=== PATIENT | male | born 1955 | race Caucasian/White ===

== ENCOUNTER 2018-09-12 16:31 | Inpatient (IN) ==
[2018-09-12] MEDS ORDERED: M.V.I.-12 10 ML, FOLIC ACID 1 MG, MAGNESIUM SULFATE 1 GM, THIAMINE 100 MG in NS 1,000 ML IV ONE (17:05)
[2018-09-12] MEDS ORDERED: MAGNESIUM SULFATE 2 GM/S.W.I. 2 GM/50 ML IVPB IV ONE (17:06)
[2018-09-12 17:26] LABS: BE 7.3 mmoll (-3.0-3.0); BLOOD TYPE ARTERIAL; HCO3-(ACT) 30.3 mmoll (20.0-26.0); METHB 1.2 % (0.0-1.5); O2(CT) 14.2 mL/dL (15.0-23.0); PCO2(98.6) 48 mmHg (35-45); PO2(98.6) 54 mmHg (60-100); SAMPLE BLOOD; SAO2 93.4 % (95.0-100.0); THB 11.8 g/dL (11.5-17.4); pH(98.6) 7.44 (7.35-7.45)
[2018-09-12 17:28] LABS: ALLEN TEST NO; MODALITY CANNULA
[2018-09-12 17:30] LABS: O2HB 85.3 % (95.0-99.0)
[2018-09-12 17:33] LABS: BASO# 0.03 X1000 (0.0-0.2); BASO% 0.2 % (0.0-0.8); EOS# 0.04 X1000 (0.0-0.7); EOS% 0.2 % (0.0-10.0); HEMATOCRIT 36.2 % (42.0-52.0); HEMOGLOBIN 12.6 g/dL (14.0-18.0); IMM GRAN# 0.16 X1000 (0.0-0.04); LYMPH# 0.66 X1000 (1.2-3.4); LYMPH% 4.1 % (20.5-51.1); MCH 28.6 PG (27-31); MCHC 34.8 g/dL (33-37); MCV 82.3 FL (81-99); MONO# 0.67 X1000 (0.11-0.59); MONO% 4.2 % (1.7-9.3); MPV 8.6 FL (7.4-10.4); NEUT% 90.3 % (42.2-75.2); PLT 328 X1000 (130-400); RDW 15.4 % (11.5-14.5); WBC 16.06 X1000 (4.8-10.8)
[2018-09-12 17:48] LABS: INR 0.93; PROTIME 12.9 Seconds (11.0-16.0)
[2018-09-12 17:56] LABS: ACETONE SERUM NEGATIVE (NEGATIVE)
[2018-09-12 18:05] LABS: ESTIMATED GFR > 60
[2018-09-12 18:07] LABS: AGAP 16; ALBUMIN 3.9 g/dL (3.5-5.0); ALKALINE PHOSPHATASE 120 U/L (32-122); BUN 6 mg/dL (8-22); CALCIUM 8.7 mg/dL (8.8-10.2); CHLORIDE 78 mmol/L (98-107); CK PROFILE 638 U/L (24-204); COSMO 243; CREATININE 0.8 mg/dL (0.7-1.2); GLUCOSE 81 mg/dL (70-104); GOT 53 U/L (10-34); GPT 21 U/L (10-44); LIPASE 28 U/L (13-60); MAGNESIUM 1.7 mg/dL (1.5-2.7); POTASSIUM 3.6 mmol/L (3.5-5.1); SODIUM 122 mmol/L (136-145); TCO2 28 mmol/L (25-35); TOTAL PROTEIN 7.3 g/dL (6.3-8.3)
[2018-09-12] MEDS ORDERED: NS 1,000 ML IV ONE (18:20)
[2018-09-12] MEDS ORDERED: ATIVAN IV ONE (18:21)
[2018-09-12 18:22] LABS: CK INDEX 2.3 (0.0-2.5)
--- NOTE | 2018-09-12 18:25 | Diag Imaging Result Doc PS360 ---
KNEE 3 VIEWS LEFT - 09/12/2018 INDICATION: seizure, patellar defect TECHNIQUE: Three views COMPARISON: None FINDINGS: There is a widely distracted transverse comminuted patella fracture. This is distracted by at least 5 cm. There is severe osteoarthritis of the medial joint compartment. The lateral joint compartment is preserved. There is severe vascular calculation of the superficial femoral artery and popliteal artery indicating peripheral arterial disease. IMPRESSION: Severely displaced, comminuted transverse patella fracture. Electronically signed by Jose Alberto Brown 09/12/2018 6:22 PM
--- NOTE | 2018-09-12 18:31 | Diag Imaging Result Doc PS360 ---
RIBS UNILAT W/PA CHEST LEFT - 09/12/2018 INDICATION: seizure, left posterior rib pain TECHNIQUE: Five views COMPARISON: 02/22/2016 FINDINGS: There is a rounded opacity in the left lung base. This measures 5 cm. There is COPD with pulmonary scarring. There is bilateral pleural blunting of the costophrenic angles indicating effusions or chronic scarring. There are numerous left-sided rib fractures. No obvious acute rib deformity. Heart size is top normal. IMPRESSION: 1. Left lung base pulmonary masslike opacity has been stable for many years, since at least 2014. On prior CT this appeared most suggestive of round atelectasis. 2. Numerous old left-sided rib deformities. No definite acute fracture. 3. Bilateral pleural effusions versus pleural scarring. Electronically signed by Jose Alberto Brown 09/12/2018 6:28 PM
--- NOTE | 2018-09-12 18:32 | PROVIDER DOCUMENTATION ---
This chart was entered by Aurora Darby Scribe, acting as scribe for Jose Elias De La Paz MD. HPI-Neurological Disorder - General Chief Complaint: Seizure Stated Complaint: SEIZURE Time Seen by Provider: 09/12/18 17:02 Source: patient Allergies/Adverse Reactions: Patient Allergies Allergy/AdvReac Type Severity Reaction Status Date / Time Penicillins Allergy Severe ANAPHYLAXIS Verified 06/08/18 15:46 Home Medications: Home Medication List Medication Instructions Recorded Confirmed Last Taken Type Albuterol Sulfate Inhaler 2 puff INH Q4H PRN PRN #1 inhaler 09/17/15 05/22/16 03/05/16 09:00 Rx [Ventolin Hfa] Amiodarone [Cordarone] 200 mg PO DAILY #30 tablet 09/17/15 05/22/16 05/22/16 07:00 Rx Diltiazem C.d. [Cardizem Cd] 120 mg PO DAILY #30 capsule 09/17/15 05/22/16 05/22/16 07:00 Rx Hydrocodone/APAP 5 mg/325 mg 2 ea PO Q6H PRN PRN #20 tab 01/29/18 Unknown Rx [[place]-5] Levofloxacin [Levaquin] 750 mg PO DAILY #14 tab 01/29/18 Unknown Rx Sulfamethoxazole/Trimethoprim 2 ea PO BID 56 Days #10 tab 01/29/18 Unknown Rx [Bactrim Ds Tablet] - History of Present Illness-Neuro Nature of Presenting Problem: Patient is a 63 year old male who presents to the ED via EMS after having a seizure. Patient reports history of seizures. States he is on Dilantin. Reports having a fall 3 days ago and fracturing his patella. Does not report headache. Severity: reports: mild Onset/Duration: reports: just prior to arrival Timing: reports: gone now Context: reports: seizure activity Character of Altered Mental Status: reports: seizure activity - Seizure First time to have a seizure?: No Witnessed seizure?: Yes Episode details: reports: unknown duration, unknown number Review of Systems - Adult - REVIEW OF SYSTEMS - ADULT Constitutional: reports: no symptoms reported. denies: chills, fever, fatique Eyes: reports: no symptoms reported Ears, Nose, Mouth & Throat: reports: no symptoms reported Cardiovascular: reports: no symptoms reported Respiratory: reports: no symptoms reported Gastrointestinal: reports: no symptoms reported. denies: diarrhea, nausea, vomiting Genitourinary: reports: no symptoms reported Musculoskeletal: reports: no symptoms reported Integumentary: reports: no symptoms reported Neurological: reports: see HPI, seizure. denies: dizziness/vertigo, headache/migraines, numbness, syncope Psychiatric: reports: no symptoms reported Endocrine: reports: no symptoms reported Hematologic/Lymphatic: reports: no symptoms reported Allergic/Immunologic: reports: no symptoms reported All Other Systems: Reviewed and Negative Past History - Adult - PAST MEDICAL HISTORY-ADULT Review of Records: reports: Nursing Assessment Review, Medications Reviewed, Social history reviewed & non-contributory. Major Childhood Illnesses: reports: denies history Cardiovascular: reports: denies history Respiratory: reports: bronchitis, COPD, other (chronic respiratory failure on oxygen) Gastrointestinal: reports: GI bleed, hepatitis (c) Obstetrical/Gynecological: reports: denies history Genitourinary: reports: denies history Musculoskeletal: reports: denies history Neurological: reports: Seizures/Epilepsy Psychiatric: reports: ptsd Endocrine/Immune: reports: other (lizzy mt spotted fever ) Other Conditions: reports: other (on hospice care) - PRIOR SURGERIES/PROCEDURES Surgical/Procedure History: reports: reviewed, not pertinent - IMMUNIZATION STATUS Childhood Immunizations: See Nurse Assessment Flu Vaccine: See Nurse Assessment - FAMILY HISTORY Family History: reviewed, not pertinent - SOCIAL HISTORY Smoking: cigarettes, less than 1 pack/day Provider spent 3-5 mins advising pt. on dangers of tobacco.: Discussed manners to quit use, and f/u contacts for add'l counseling. Substance Use: alcohol Alcohol Use Frequency: 3-4 times a week Living Situation: family Physical Exam- Neurological - Physical Exam-Neuro Initial Vital Signs Reviewed: Yes General Appearance: alert, no apparent distress. negative: lethargic, slow to respond Eye Exam: bilateral eye: normal inspection HENMT: normocephalic/atraumatic, moist mucous membranes. negative: angioedema, hearing deficit Head Injury: no evidence of injury. negative: active bleeding, ecchymosis, lacerations Respiratory: chest non-tender, lungs clear, normal breath sounds. negative: crackles, rhonchi, wheezing Cardiovascular: normal peripheral pulses, regular rate, rhythm (occasional ectopic beats). negative: systolic murmur Abdominal Exam: normal bowel sounds, non tender, soft. negative: guarding, rebound Extremity: other (deficit to left mid patella with tenderness. bandages present to right forearm.) Neurologic: grossly normal. negative: aphasia, facial droop Integumentary: other (skin tear to right 1st metatarsophalangeal joint). negative: ecchymosis, jaundice Psych/Mental Status: normal mood/affect, oriented x 3. negative: anxious, paranoid Progress - PLAN OF CARE/RESULTS Progress/Plan/Lab Results: Vital Signs - 8 hr 09/12/18 16:49 09/12/18 17:19 09/12/18 18:26 Pulse Rate 90 89 83 Respiratory Rate 16 18 19 Blood Pressure 86/51 95/64 122/77 O2 Sat by Pulse Oximetry 92 L 95 99 Laboratory Results - last 24 hr 09/12/18 09/12/18 09/12/18 17:10 17:15 17:15 WBC RBC Hgb Hct MCV MCH MCHC RDW Std Deviation Plt Count MPV Immature Gran % (Auto) Neut % (Auto) Lymph % (Auto) [place]ette % (Auto) Eos % (Auto) Baso % (Auto) Immature Gran # (Auto) Neut # (Auto) Lymph # (Auto) [place] # (Auto) Eos # (Auto) Baso # (Auto) PT INR Specimen Type ARTERIAL Sample Site R BRACHIAL pH 7.44 pCO2 48 H pO2 54 L HCO3 30.3 H Base Excess 7.3 H Oxyhemoglobin 85.3 L* ABG O2 Sat (Calculated) 14.2 L ABG O2 Saturation 93.4 L ABG Carboxyhemoglobin 7.50 H* ABG Methemoglobin 1.2 Benny Test NO A-a O2 Difference 114.0 Total Hemoglobin 11.8 Lactate 1.90 Liter Flow 3.0 Blood Gas Modality CANNULA FiO2 % 32.0 Sodium 122 L Potassium 3.6 Chloride 78 L Carbon Dioxide 28 Anion Gap 16 BUN 6 L Creatinine 0.8 Estimated GFR/1.73 m2 > 60 BUN/Creatinine Ratio 8 Glucose 81 Calculated Osmolality 243 Calcium 8.7 L Magnesium 1.7 Total Bilirubin 0.80 AST 53 H ALT 21 Alkaline Phosphatase 120 Creatine Kinase 638 H Creatine Kinase Index 2.3 CK-MB (CK-2) 14.50 H Troponin T [id number] Pept Total Protein 7.3 Albumin 3.9 Globulin 3.0 Albumin/Globulin Ratio 1.0 Lipase 28 Plasma Lactate Total Phenytoin 1.30 L Acetone Level NEGATIVE 09/12/18 09/12/18 09/12/18 17:15 17:15 17:15 WBC 16.06 H RBC 4.40 L Hgb 12.6 L Hct 36.2 L MCV 82.3 MCH 28.6 MCHC 34.8 RDW Std Deviation 15.4 H Plt Count 328 MPV 8.6 Immature Gran % (Auto) 1.0 H Neut % (Auto) 90.3 H Lymph % (Auto) 4.1 L Payette % (Auto) 4.2 Eos % (Auto) 0.2 Baso % (Auto) 0.2 Immature Gran # (Auto) 0.16 H Neut # (Auto) 14.50 H Lymph # (Auto) 0.66 L Payette # (Auto) 0.67 H Eos # (Auto) 0.04 Baso # (Auto) 0.03 PT INR Specimen Type Sample Site pH pCO2 pO2 HCO3 Base Excess Oxyhemoglobin ABG O2 Sat (Calculated) ABG O2 Saturation ABG Carboxyhemoglobin ABG Methemoglobin Benny Test A-a O2 Difference Total Hemoglobin Lactate Liter Flow Blood Gas Modality FiO2 % Sodium Potassium Chloride Carbon Dioxide Anion Gap BUN Creatinine Estimated GFR/1.73 m2 BUN/Creatinine Ratio Glucose Calculated Osmolality Calcium Magnesium Total Bilirubin AST ALT Alkaline Phosphatase Creatine Kinase Creatine Kinase Index CK-MB (CK-2) Troponin T [id number] Pept 759 H Total Protein Albumin Globulin Albumin/Globulin Ratio Lipase Plasma Lactate 3.3 H Total Phenytoin Acetone Level 09/12/18 09/12/18 17:15 17:15 WBC RBC Hgb Hct MCV MCH MCHC RDW Std Deviation Plt Count MPV Immature Gran % (Auto) Neut % (Auto) Lymph % (Auto) [place] % (Auto) Eos % (Auto) Baso % (Auto) Immature Gran # (Auto) Neut # (Auto) Lymph # (Auto) [place] # (Auto) Eos # (Auto) Baso # (Auto) PT 12.9 INR 0.93 Specimen Type Sample Site pH pCO2 pO2 HCO3 Base Excess Oxyhemoglobin ABG O2 Sat (Calculated) ABG O2 Saturation ABG Carboxyhemoglobin ABG Methemoglobin Benny Test A-a O2 Difference Total Hemoglobin Lactate Liter Flow Blood Gas Modality FiO2 % Sodium Potassium Chloride Carbon Dioxide Anion Gap BUN Creatinine Estimated GFR/1.73 m2 BUN/Creatinine Ratio Glucose Calculated Osmolality Calcium Magnesium Total Bilirubin AST ALT Alkaline Phosphatase Creatine Kinase Creatine Kinase Index CK-MB (CK-2) Troponin T < 0.010 Ooh-O-Rrpmclhcggj Pept Total Protein Albumin Globulin Albumin/Globulin Ratio Lipase Plasma Lactate Total Phenytoin Acetone Level Orders Category Date Time Status Finger Stick Blood Sugar (ED) DIRECTED Care 09/12/18 17:02 Active Knee Immobilizer .left Care 09/12/18 18:21 Active Nursing- Obtain EKG once Care 09/12/18 17:02 Active Saline Loc NOW Care 09/12/18 17:[address] HEAD/C-SPINE W/O CONTRAST [CT] Stat Exams 09/12/18 17:03 Completed KNEE 3 VIEWS LEFT [RAD] Stat Exams 09/12/18 17:04 Completed RIBS UNILAT W/PA CHEST LEFT [RAD] Stat Exams 09/12/18 17:04 Completed ABG [RESP] Routine Lab 09/12/18 17:10 Completed ACETONE SERUM [CHEM] Stat Lab 09/12/18 17:15 Completed ALCOHOL BLOOD Stat Lab 09/12/18 17:15 Received BLOOD CULTURE [BLDCUL] Stat Lab 09/12/18 17:24 Ordered CBC WITH ELECTRONIC DIFF [HEME] Stat Lab 09/12/18 17:15 Completed CK PROFILE [SP CHEM] Stat Lab 09/12/18 17:15 Completed COMPREHENSIVE METABOLIC PANEL [CHEM] Stat Lab 09/12/18 17:15 Completed Dilantin [PHENYTOIN] [TDM] Stat Lab 09/12/18 17:15 Completed LACTATE, PLASMA [CHEM] Stat Lab 09/12/18 17:15 Completed LIPASE [CHEM] Stat Lab 09/12/18 17:15 Completed MAGNESIUM [CHEM] Stat Lab 09/12/18 17:15 Completed PRO B-NATRIURETIC PEPTIDE Stat Lab 09/12/18 17:15 Completed PROTIME WITH INR [COAG] Stat Lab 09/12/18 17:15 Completed TROPONIN T Stat Lab 09/12/18 17:[address] W/POSS RFLX CULT [URINALYSIS] Stat Lab 09/12/18 17:03 Uncollected URINE DRUG SCREEN PL Stat Lab 09/12/18 17:03 Uncollected 0.9% Sodium Chloride Inj [Ns] 1,000 ml Med 09/12/18 18:20 Active IV 75 mls/hr Lorazepam [Ativan] Med 09/12/18 18:21 Discontinued 1 mg IV NOW ONE Magnesium Sulfate 2 gm/S.w.i. Med 09/12/18 17:06 Discontinued 2 gm in 50 ml IV NOW Mvi [M.v.i.-12] 10 ml Med 09/12/18 17:05 Discontinued Folic Acid 1 mg Magnesium Sulfate 1 gm Thiamine 100 mg 0.9% Sodium Chloride Inj [Ns] 1,000 ml IV NOW EKG [EKG] Stat Ther 09/12/18 17:02 Ordered Result Diagrams: 09/12/18 17:15 09/12/18 17:15 - REASSESSMENT Reassessment #1 Time Reassessed: 18:22 Status: improving (given IV banana bag, 1 gm Mag Sulfate, 1mg of lorazepam.) Reassessment #2 Time Reassessed: 18:30 Status: unchanged (Family at bedside and hospice nurse at bedside ask for him to be admitted for correction of hyponatremia, treatment of seizure and possible orthopedic consultation for patella fracture (which originally occurred around 08/25, but apparently just displaced completely a couple of day ago). Patient is on hospice for COPD, and hospice nurse says he is not on dilantin, but has been continuing to use alcohol and has had alcohol w/d seizure.) - CONSULTS/PCP/HOSPITALIST Notification #1 *Consult/PCP/Hospitalist*: Rola Time Discussed: 18:40 Consult Disposition: Admit (will see upstairs later) Procedures - SPLINTING Left Lower Extremity Pre-Procedure Neurovascular Exam: Intact Pre-Fabricated Splint: Knee Immobilizer Splint Application (Hand-Made): Long Applied By: char filter operator helper Post Procedure Neurovascular Exam: Intact Procedure Comment: patella fracture Departure - Departure Date of Disposition Decision: 09/12/18 Time of Disposition Decision: 18:40 DIAGNOSIS: Generalized tonic-clonic seizure, Alcohol withdrawal seizure with complication, Hyponatremia syndrome Fracture of patella, left, closed Qualifiers: Encounter type: initial encounter Fracture morphology: transverse Fracture alignment: displaced Qualified Code(s): S82.032A - Displaced transverse fracture of left patella, initial encounter for closed fracture Skin tear of right forearm without complication Qualifiers: Encounter type: initial encounter Qualified Code(s): S51.811A - Laceration without foreign body of right forearm, initial encounter Disposition: ADMITTED INPATIENT 09 Certified Medical Emergency: Emergent Condition: Critical Referrals and Follow-Ups: None,PCP [Primary Care Provider] - - Critical Care Note This patient required my direct & personal management of CC.: Yes Total Time (mins): 40 Critical Care Statement: This patient required my direct personal management to treat or rule out processes, the absence of which, could potentiallly result in sudden, clinically significant life or limb threatening deterioration. Attestation - Physician/ ADAM Attestation Patient care was provided by Advanced Practice Provider:: No The physician spent face to face time with patient:: Yes Advanced Practice Provider documentation review:: Supervising physician onsite and consulted in the evaluation and care of this patient. The physician did have a face to face encounter with the patient. This chart was documented by the indicated scribe, (Aurora Darby Scribe) and accurately reflects the services I performed and decisions made by me, Jose Elias De La Paz MD, as attested by the provider's signature.
--- NOTE | 2018-09-12 18:36 | Diag Imaging Result Doc PS360 ---
CT HEAD/C-SPINE W/O CONTRAST - 09/12/2018 INDICATION: seizure COMPARISON: 02/22/2016 FINDINGS: Head CT: The ventricles and sulci are normal in size and contour. No intracranial mass or hemorrhage. The skull is intact. The sinuses, mastoids, and middle ears are clear. Cervical spine: Alignment is anatomic. No fracture or subluxation. Stable advanced disc degeneration at C4-5 and C5-6, with fusion at the C4-5 disc space and facet joints. Stable mild multilevel facet degeneration. Stable advanced vascular disease of the carotid bulbs bilaterally. IMPRESSION: No acute injury. This exam was performed using automated exposure control, adjustment of mA or kV according to patient size, and/or use of iterative reconstruction technique Electronically signed by Jose Alberto Brown 09/12/2018 6:34 PM
[2018-09-12] MEDS ORDERED: ATIVAN ONE (20:42)
[2018-09-13 06:21] LABS: BILIRUBIN URINE NEGATIVE (NEGATIVE); BLOOD URINE 1+ (NEGATIVE); CLARITY CLEAR (CLEAR); COLOR YELLOW; GLUCOSE URINE NEGATIVE (NEGATIVE); KETONE URINE 2+(Moderate) mg/dL (NEGATIVE); LEUKOCYTES URINE NEGATIVE (NEGATIVE); NITRITE URINE NEGATIVE (NEGATIVE); PH URINE 6.5; PROTEIN URINE NEGATIVE (NEGATIVE); UROBILINOGEN URINE NORMAL
[2018-09-13 06:23] LABS: URINE SOURCE CLEAN CATCH
[2018-09-13 06:25] LABS: URINE BACTERIA 1+ /HFP; URINE EPITHELIAL CELLS <10 /HPF (<10); URINE RBC <10 /HPF (<10); URINE WBC <10 /HPF (<10)
[2018-09-13 06:30] LABS: UR AMPHETAMINES QUAL NONE DETECTED (NONE DETECT); UR BARBITUATES QUAL NONE DETECTED (NONE DETECT); UR BENZODIAZEPIN QUAL PRESUMPTIVE POSITIVE (NONE DETECT); UR CANNABINOIDS QUAL NONE DETECTED (NONE DETECT); UR COCAINE QUAL NONE DETECTED (NONE DETECT); UR METHADONE QUAL NONE DETECTED (NONE DETECT); UR METHAMPHETAMINE QUAL NONE DETECTED (NONE DETECT); UR OPIATES QUAL PRESUMPTIVE POSITIVE (NONE DETECT); UR OXYCODONE QUAL PRESUMPTIVE POSITIVE (NONE DETECT); UR PCP QUAL NONE DETECTED (NONE DETECT); UR PROPOXYPHENE QUAL NONE DETECTED (NONE DETECT); UR TCA QUAL PRESUMPTIVE POSITIVE (NONE DETECT)
[2018-09-13] MEDS ORDERED: BENTYL PO PRN (06:36)
[2018-09-13] MEDS ORDERED: SALINE LOCK IV FLUID XX ONE (06:36)
[2018-09-13] MEDS ORDERED: ATARAX PO PRN (06:36)
[2018-09-13] MEDS ORDERED: LIBRIUM PO SCH (06:45)
[2018-09-13] MEDS ORDERED: ATIVAN IV ONE ×2 (07:20→16:53)
--- NOTE | 2018-09-13 07:54 | EKG Report ---
Test Performed on : 09/12/2018 7:13:51 PM Test Reason : seizure Blood Pressure : / mmHG Vent. Rate : 082 BPM Atrial Rate : 082 BPM P-R Int : 144 ms QRS Dur : 104 ms QT Int : 520 ms P-R-T Axes : 070 020 042 degrees QTc Int : 607 ms Sinus rhythm. with occasional premature ventricular complexes. Possible Left atrial enlargement Incomplete right bundle branch block Nonspecific T wave abnormality Prolonged QT Abnormal ECG When compared with ECG of 23-MAY-2016 06:16, premature ventricular complexes. are now present QT has lengthened Unconfirmed Result
--- NOTE | 2018-09-13 07:58 | EKG Report ---
Test Performed on : 09/13/2018 07:13:55 AM Test Reason : TACH Blood Pressure : / mmHG Vent. Rate : 142 BPM Atrial Rate : 142 BPM P-R Int : 240 ms QRS Dur : 116 ms QT Int : 360 ms P-R-T Axes : 094 029 077 degrees QTc Int : 553 ms Supraventricular tachycardia. Incomplete right bundle branch block Septal infarct , age undetermined Abnormal ECG When compared with ECG of 12-SEP-2018 19:13, (Unconfirmed) Significant changes have occurred Confirmed by Ayo Rodriguez MD ([id number]) on 09/22/2018 7:42:15 AM
[2018-09-13] MEDS ORDERED: OXY IR PO PRN (08:11)
[2018-09-13] MEDS ORDERED: VANCOMYCIN IV PER PHARMACY MISC SCH (08:30)
[2018-09-13] MEDS: LEVAQUIN 750 MG/D5W 750 MG/150 ML IVPB IV SCH (08:46)
[2018-09-13] MEDS: NS 1,000 ML IV SCH ×4 (08:46→22:27)
[2018-09-13] MEDS ORDERED: LASIX PO SCH (09:00)
[2018-09-13] MEDS ORDERED: M.V.I.-12 10 ML, FOLIC ACID 1 MG, MAGNESIUM SULFATE 1 GM, THIAMINE 100 MG in NS 1,000 ML IV ONE (09:00)
[2018-09-13] MEDS: NEURONTIN PO SCH ×3 (09:05→17:08)
[2018-09-13] MEDS: LIBRIUM PO SCH ×3 (09:06→21:22)
[2018-09-13] MEDS: PREDNISONE PO SCH (09:06)
[2018-09-13] MEDS: CARDIZEM IV ONE ×2 (09:15→13:43)
[2018-09-13 09:54] LABS: HEMATOCRIT 33.8 % (42.0-52.0); HEMOGLOBIN 11.2 g/dL (14.0-18.0); MCH 28.4 PG (27-31); MCHC 33.1 g/dL (33-37); MCV 85.8 FL (81-99); MPV 8.9 FL (7.4-10.4); RBC 3.94 XMIL (4.7-6.1); RDW 16.1 % (11.5-14.5); WBC 14.83 X1000 (4.8-10.8)
[2018-09-13] MEDS: VANCOMYCIN 2,000 MG in NS 500 ML IV SCH (10:01)
--- NOTE | 2018-09-13 10:04 | EKG Report ---
Test Performed on : 09/13/2018 09:28:29 AM Test Reason : tachy Blood Pressure : / mmHG Vent. Rate : 099 BPM Atrial Rate : 087 BPM P-R Int : 134 ms QRS Dur : 096 ms QT Int : 400 ms P-R-T Axes : 039 035 050 degrees QTc Int : 513 ms Sinus rhythm. with premature supraventricular complexes. and with occasional and consecutive prematur e ventricular complexes. Incomplete right bundle branch block Nonspecific ST and T wave abnormality Prolonged QT Abnormal ECG When compared with ECG of 13-SEP-2018 07:13, (Unconfirmed) premature ventricular complexes. are now present premature supraventricular complexes. are now present KS interval has decreased Criteria for Septal infarct are no longer present Confirmed by Ayo Rodriguez MD ([id number]) on 09/22/2018 7:40:55 AM
[2018-09-13 10:13] LABS: ESTIMATED GFR > 60
[2018-09-13 10:29] LABS: AGAP 16; ALBUMIN 3.1 g/dL (3.5-5.0); ALKALINE PHOSPHATASE 98 U/L (32-122); BUN 5 mg/dL (8-22); CHLORIDE 88 mmol/L (98-107); COSMO 257; CREATININE 0.7 mg/dL (0.7-1.2); GLUCOSE 85 mg/dL (70-104); GOT 43 U/L (10-34); GPT 16 U/L (10-44); POTASSIUM 3.8 mmol/L (3.5-5.1); SODIUM 130 mmol/L (136-145); TCO2 26 mmol/L (25-35); TOTAL PROTEIN 6.3 g/dL (6.3-8.3)
[2018-09-13 10:30] LABS: MAGNESIUM 2.1 mg/dL (1.5-2.7)
[2018-09-13 10:49] LABS: CK INDEX 1.8 (0.0-2.5); CK-MB 6.1 ng/mL (0.0-5.0)
[2018-09-13] MEDS: CLINDAMYCIN 600 MG/D5W 600 MG/50 ML IVPB IV SCH ×2 (13:18→21:18)
[2018-09-13] MEDS ORDERED: CARDIZEM ONE (13:39)
[2018-09-13] MEDS ORDERED: NS 1,000 ML IV ONE (14:02)
[2018-09-13 14:23] LABS: HEMATOCRIT 32.4 % (42.0-52.0); HEMOGLOBIN 10.9 g/dL (14.0-18.0); MCH 28.8 PG (27-31); MCHC 33.6 g/dL (33-37); MCV 85.5 FL (81-99); MPV 8.8 FL (7.4-10.4); RBC 3.79 XMIL (4.7-6.1); RDW 15.9 % (11.5-14.5); WBC 13.57 X1000 (4.8-10.8)
[2018-09-13 14:37] LABS: AGAP 15; BUN 5 mg/dL (8-22); CALCIUM 7.3 mg/dL (8.8-10.2); CHLORIDE 92 mmol/L (98-107); COSMO 262; CREATININE 0.6 mg/dL (0.7-1.2); ESTIMATED GFR > 60; GLUCOSE 101 mg/dL (70-104); PHOSPHORUS 2.4 mg/dL (2.7-4.5); SODIUM 132 mmol/L (136-145); TCO2 25 mmol/L (25-35)
[2018-09-13] MEDS ORDERED: KLOR-CON PO ONE (17:35)
--- NOTE | 2018-09-13 18:46 | HISTORY AND PHYSICAL ---
CHIEF COMPLAINT: Seizure. HISTORY OF PRESENT ILLNESS: This is a 63-year-old gentleman with a history of alcoholism, hepatitis C, COPD, seizure disorder, who is currently under hospice care for COPD. He presents to the emergency room via EMS after having a seizure. Reportedly had a seizure during the night and then one prior to EMS being called. On arrival to the emergency room, the patient was alert. He was oriented, able to answer some questions at times. PAST MEDICAL HISTORY: 1. Elevated PSA with no reported follow-up. 2. COPD on chronic home O2. 3. Seizure disorder. 4. Hepatitis C. 5. Bipolar disorder. 6. PTSD. 7. Recent patellar fracture. PAST SURGICAL HISTORY: Left knee surgery. SOCIAL HISTORY: He lives this . He drinks at least 6 to 8 beers today, usually more. He smokes about a half a pack a day. ALLERGIES: Penicillin, which causes anaphylaxis. HOME MEDICATIONS: A list will be obtained by the nursing staff and once verified, will review. Restarted as appropriate. REVIEW OF SYSTEMS: Unable to obtain from the patient at present, as he has been sedated, as he will start to answer then either he will quit answering or he will ramble incoherently. PHYSICAL EXAMINATION: GENERAL: This is a 63-year-old gentleman who is lying in ICU in no distress. VITAL SIGNS: Blood pressure is 105/66, heart rate 140, respirations are 20, temperature is 99 oral with O2 saturations 94-96% on 4 L nasal cannula. HEENT: Head is normocephalic, atraumatic. Mucous membranes are dry. NECK: Supple with trachea midline. CARDIOVASCULAR: Irregularly irregular rate and rhythm. S1 and S2 appreciated. PULMONARY: Breath sounds are clear with no increased work of breathing noted. Chest rises and falls symmetric with respiration. GASTROINTESTINAL: Soft, nontender, nondistended with bowel sounds in all 4 quadrants. NEUROLOGIC: He is awake. He will answer questions with garbled speech. He does follow simple commands. LABS: WBC is 16 with hemoglobin 12.6, hematocrit 36.2, platelets of 328. INR 0.93. Sodium was 122, potassium 3.6, BUN 6, creatinine 0.8 with a glucose of 81. Urinalysis is 1+ for blood, 2+ ketones, otherwise negative. Urine drug screen is presumptive positive for opiates, oxycodone, tricyclics and benzodiazepines with blood alcohol none detected. CT of the head and C-spine reveals no acute injury. Left knee x-ray reveals severely displaced comminuted transverse patellar fracture. Left chest with left ribs. ASSESSMENT AND PLAN: 1. Seizure disorder. The patient is reportedly on Dilantin. We will check a Dilantin level. He will be moved to ICU for close monitoring. We will identify his home medications and continue as appropriate. 2. Atrial fibrillation with RVR. The patient was being moved to ICU and placed on telemetry. Cardizem has been ordered. We will evaluate and treat per response. 3. Hyponatremia. This is very likely secondary to alcohol use. We will hydrate and trend his labs. 4. Chronic obstructive pulmonary disease. We will give supplemental oxygen and continue medications. 5. Hepatitis C, aware. 6. Elevated PSA, aware. 7. Alcohol use and abuse with daily use. The patient will be placed in ICU. We will monitor for any signs of withdrawal. Dictated by KRZYSZTOF Woods for Job Canela MD cc: KRZYSZTOF Woods MD
--- NOTE | 2018-09-13 20:01 | HISTORY AND PHYSICAL ---
ADDENDUM: Patient seen and examined by myself. Full note dictated and discussed with nurse practitioner. Patient presented to the hospital with apparently having had a seizure at home. I expect that this was more alcohol withdrawal related as he is a heavy drinker and has recently stopped. He is on hospice for COPD. He has apparently fallen and shattered his knee cap. Unfortunately, given his end-stage COPD, any surgical intervention would be a very difficult undertaking and he would be unlikely to survive the surgery. While in the hospital, the patient's heart rate jumped to 150s. It currently is back down to 86. I believe he has a history of atrial fibrillation and he certainly could be in intermittent atrial fibrillation which caused his symptoms earlier. However, given his frequent falls and chronic alcoholism, anticoagulation would not be warranted. We will admit the patient to the hospital, place him in the ICU. We will place him on antibiotics because he does have an elevated white count and certainly could have an early septic picture. We will follow his sodium, although I expect this is low secondary to his chronic alcoholism. cc: Job Canela MD
[2018-09-13] MEDS: REMERON PO SCH (21:21)
[2018-09-13] MEDS: LOPRESSOR PO SCH (21:22)
--- NOTE | 2018-09-13 21:33 | CONSULTATION ---
DATE OF CONSULTATION: 09/13/2018 IMPRESSION: 1. Intermittent atrial fibrillation. The patient has a history of previous atrial fibrillation in 2016. 2. Recurrent seizure with history of seizure disorder. 3. Alcoholism. 4. Chronic obstructive pulmonary disease. 5. Chronic hepatitis C. RECOMMENDATIONS: 1. Control heart rate with metoprolol as required/tolerated. 2. The patient is a poor candidate for long-term anticoagulation. 3. The patient's atrial fibrillation appears to be associated with acute noncardiac illness and very likely associated with his active alcoholism. His CHADS-VASC score is low, and he is not a suitable candidate for long-term anticoagulation at any rate. HISTORY: This 63-year-old white male with past history of active alcoholism, hepatitis C, COPD, seizure disorder, and PTSD, was admitted after a seizure. He is under hospice care for his severe COPD. He has been found to be in atrial fibrillation. This appears to be intermittent. At times, his heart rate is significantly elevated, and Cardiology is consulted to assist with management of his atrial fibrillation. He is somewhat drowsy at present and has been receiving benzodiazepines for prophylaxis against alcohol withdrawal syndromes. He has been actively drinking alcohol up to not long before admission. He denies any chest discomfort or dyspnea. He had previous atrial fibrillation back in 2016 when he was hospitalized for noncardiac reasons. He was treated with amiodarone for a period of time, but this ultimately was withdrawn as he maintained sinus rhythm. PAST MEDICAL HISTORY: 1. Chronic alcoholism. 2. COPD requiring chronic home oxygen. 3. Seizure disorder. 4. Hepatitis C. 5. Bipolar disorder. 6. PTSD. 7. Recent patellar fracture sustained when he fell with his seizure. PAST SURGICAL HISTORY: Includes unspecified left knee surgery. ALLERGIES: He is allergic or intolerant to penicillin. MEDICATIONS PRIOR TO ADMISSION: As listed. SOCIAL HISTORY: He lives with his . He drinks at least 8 beers or more daily. He smokes 1/2 pack of cigarettes per day. FAMILY HISTORY: Noncontributory. REVIEW OF SYSTEMS: Pulmonary: Negative. Gastrointestinal: Noteworthy for some anorexia. Otherwise negative. There has been no bright red blood per rectum or melena. Constitutional: Negative. Remainder of review of systems negative/noncontributory with 14 total systems reviewed. PHYSICAL EXAMINATION: General: This is a chronically ill-appearing, middle-aged male who appears older than stated age. Vital signs: Blood pressure 105/66. Heart rate variable and ranging from 90 to 146 beats per minute with ECG monitor showing atrial fibrillation with rapid ventricular rate and at other times sinus rhythm with PACs. Oxygen saturation 94% on nasal cannula oxygen. HEENT: Extraocular movements appear intact. Mucous membranes are moist. Neck: Supple, without jugular venous distention. There are no carotid bruits. Chest: Clear to auscultation. Cardiac Exam: Reveals an irregular rate and rhythm without appreciable murmur or gallop. Abdomen: Soft. Bowel sounds are audible. Extremities: Without edema. Neurologic: Reveals him to be somewhat drowsy but responsive. Speech is fluent. He moves all 4 extremities equally well. PERTINENT DATA: A 12-lead EKG obtained on admission demonstrates sinus rhythm with occasional premature supraventricular complex, left atrial abnormality, incomplete right bundle branch block, and nonspecific T-wave abnormality. LABORATORY DATA: Includes a white blood cell count of 13.57, hematocrit 32.4, hemoglobin 10.9, platelet count 282,000. Sodium 132, potassium 3.0, chloride 92, carbon dioxide 25, BUN 5, creatinine 0.6, glucose 101. Magnesium 2.1. Initial troponin less than 0.01, followup troponin less than 0.01. Albumin 3.0. TSH 0.36. cc: Chao Santiago MD
[2018-09-13] MEDS: LOPRESSOR IV PRN (23:53)
[2018-09-14] MEDS: VANCOMYCIN 2,000 MG in NS 500 ML IV SCH (02:36)
[2018-09-14] MEDS: LIBRIUM PO SCH ×4 (02:36→16:55)
[2018-09-14] MEDS: OXY IR PO PRN ×2 (04:39→15:53)
[2018-09-14] MEDS: CLINDAMYCIN 600 MG/D5W 600 MG/50 ML IVPB IV SCH ×3 (04:40→21:01)
[2018-09-14] MEDS ORDERED: KLOR-CON PO ONE (07:15)
[2018-09-14] MEDS: LEVAQUIN 750 MG/D5W 750 MG/150 ML IVPB IV SCH (09:39)
[2018-09-14] MEDS: NEURONTIN PO SCH ×3 (09:39→16:56)
[2018-09-14] MEDS: LOPRESSOR PO SCH ×2 (09:40→22:34)
[2018-09-14] MEDS: PREDNISONE PO SCH (09:40)
[2018-09-14] MEDS ORDERED: KLOR-CON ONE (09:45)
[2018-09-14] MEDS: NS 1,000 ML IV SCH ×3 (09:47→21:01)
[2018-09-14] MEDS ORDERED: M.V.I.-12 10 ML, FOLIC ACID 1 MG, MAGNESIUM SULFATE 1 GM, THIAMINE 100 MG in NS 1,000 ML IV ONE (14:00)
[2018-09-14] MEDS: VANCOMYCIN 1,900 MG in NS 500 ML IV SCH (15:48)
--- NOTE | 2018-09-14 16:10 | ECHO REPORT ---
ORDER DATE: 09/13/2018 INTERPRETING PHYSICIAN: Dr. Cosme Moreira ECHOCARDIOGRAPHIC MEASUREMENTS: 1. Interventricular septum: 1.1cm. 2. Posterior wall: 1.1 cm. 3. Diastolic diameter: 3.9 cm. 4. Left atrium: 3.6 cm. 5. Aortic root: 3.8 cm. SUMMARY OF THE 2-DIMENSIONAL IMAGIN. Aortic valve leaflets were trileaflet. 2. Pulmonic valve was normal. 3. Mitral valve was normal. 4. Technically suboptimal study. 5. Tachycardia was noted. 6. There was mild mitral regurgitation. 7. Mild tricuspid regurgitation. Peak velocity across the tricuspid valve was 2.9 m/sec. 8. Pulmonary artery systolic pressure of 43 mmHg. 9. Peak velocity across the aortic valve less than 2 m/sec. There is no aortic stenosis or regurgitation. 10. Normal left ventricular cavity size. Borderline left ventricular hypertrophy. Estimated ejection fraction of 60% to 65%. 11. Tachycardia was noted with atrial fibrillation. 12. Anterior echo-free space suggestive of pericardial fat pad noted. Cannot rule out trace effusion. 13. There is no tamponade. cc: MD Myla Peters CRNP
--- NOTE | 2018-09-14 19:41 | PROGRESS NOTE ---
DATE: 09/14/2018 SUBJECTIVE: The patient has no complaints. Staff notes that he is doing better. PHYSICAL EXAMINATION: Vital Signs: Reviewed. Heart rate is in the 60s and 80s which is much improved. He is afebrile. Blood pressure is stable. General: The patient is awake, alert. He is in no distress. HEENT: Normocephalic. Neck: Supple. Cardiovascular: Appears regular rate and rhythm currently. Chest: Clear, nonlabored. Abdomen: Soft, nondistended. Extremities: Moves all extremities. ASSESSMENT: 1. Seizure disorder. 2. Chronic obstructive pulmonary disease, chronic, does not appear to be in exacerbation. 3. Atrial fibrillation. His heart rate appears to be controlled currently. 4. Hyponatremia, improving. 5. Hepatitis C. 6. Chronic alcohol abuse. PLAN: We will continue the patient in the hospital. We will continue to follow, and hopefully, he can discharge out of the ICU over the next day or two. TIME SPENT: 35 minutes was spent in total care. cc: Job Canela MD
[2018-09-14] MEDS: REMERON PO SCH (22:33)
[2018-09-15] MEDS: LIBRIUM PO SCH (01:45)
[2018-09-15] MEDS: VANCOMYCIN 1,900 MG in NS 500 ML IV SCH (01:45)
[2018-09-15] MEDS: OXY IR PO PRN ×5 (04:11→23:29)
[2018-09-15] MEDS: NS 1,000 ML IV SCH ×2 (04:11→06:31)
[2018-09-15] MEDS: CLINDAMYCIN 600 MG/D5W 600 MG/50 ML IVPB IV SCH ×4 (04:11→20:38)
[2018-09-15] MEDS: LEVAQUIN 750 MG/D5W 750 MG/150 ML IVPB IV SCH (09:02)
[2018-09-15] MEDS: NEURONTIN PO SCH ×3 (09:09→16:35)
[2018-09-15] MEDS: PREDNISONE PO SCH (09:09)
[2018-09-15] MEDS: LOPRESSOR PO SCH ×3 (09:30→20:38)
[2018-09-15] MEDS: LASIX IV SCH ×3 (09:30→20:39)
[2018-09-15 09:49] LABS: HEMATOCRIT 35.5 % (42.0-52.0); HEMOGLOBIN 11.5 g/dL (14.0-18.0); MCH 28.5 PG (27-31); MCHC 32.4 g/dL (33-37); MCV 88.1 FL (81-99); MPV 8.5 FL (7.4-10.4); RBC 4.03 XMIL (4.7-6.1); RDW 16.9 % (11.5-14.5); WBC 11.61 X1000 (4.8-10.8)
--- NOTE | 2018-09-15 09:55 | Diag Imaging Result Doc PS360 ---
EXAM: CHEST-PORTABLE HISTORY: SOB TECHNIQUE: Portable chest single view COMPARISON: 09/12/2018 FINDINGS: There are infiltrates in the lower lungs bilaterally. These are more prominent than on the prior study. There are small pleural effusions. No cardiomegaly. There is apical pleural thickening. Multiple old rib fractures. IMPRESSION: Worsening infiltrates. Electronically signed by Zeus Aguila 09/15/2018 9:53 AM
[2018-09-15 10:04] LABS: CALCIUM 8.1 mg/dL (8.8-10.2); CREATININE 1.5 mg/dL (0.7-1.2); MAGNESIUM 1.5 mg/dL (1.5-2.7); POTASSIUM 3.2 mmol/L (3.5-5.1); TOTAL BILIRUBIN 0.5 mg/dL (0.20-1.00); TOTAL PROTEIN 5.9 g/dL (6.3-8.3)
[2018-09-15] MEDS: DUONEB (A & A) INH PRN ×2 (12:27→15:31)
[2018-09-15] MEDS: NICODERM PATCH TD SCH (16:35)
--- NOTE | 2018-09-15 17:14 | EKG Report ---
Test Performed on : 09/15/2018 4:31:26 PM Test Reason : Rhythm change Blood Pressure : / mmHG Vent. Rate : 080 BPM Atrial Rate : 080 BPM P-R Int : 136 ms QRS Dur : 098 ms QT Int : 426 ms P-R-T Axes : -16 021 036 degrees QTc Int : 491 ms Sinus rhythm. with premature atrial complexes. Low voltage QRS Cannot rule out Anterior infarct , age undetermined Abnormal ECG When compared with ECG of 13-SEP-2018 09:28, (Unconfirmed) premature ventricular complexes. are no longer present Confirmed by Ayo Rodriguez MD ([id number]) on 09/22/2018 7:38:18 AM
[2018-09-15] MEDS: REMERON PO SCH ×2 (19:41→20:38)
[2018-09-15] MEDS: LOPRESSOR IV PRN (20:21)
--- NOTE | 2018-09-15 22:12 | PROGRESS NOTE ---
DATE: 09/15/2018 SUBJECTIVE: The patient seems to be a little bit more somnolent this morning than he has been in the past. He does not answer questions nor follow commands. OBJECTIVE: Temperature 99.6 degrees, pulse 72, respiratory rate 18 to 30, BP 121/77. General: The patient is more sedated today that he has been in the past. He does move to noxious stimuli but does not awaken, follow commands nor answer questions. HEENT: Normocephalic. Neck supple. CV: Appears regular rate and rhythm. Chest clear, nonlabored. Abdomen is soft, nondistended. ASSESSMENT: 1. Atrial fibrillation, currently stable. 2. Chronic obstructive pulmonary disease, endstage. 3. Hyponatremia, stable. 4. Alcohol withdrawal. We will continue to wean Librium. PLAN: Overall the patient continues to decline somewhat. He does have endstage COPD and is very unlikely to fully recover. We will continue to follow and continue to adjust his medications. We will wean his Librium, follow his sodium and his breathing. We will get a chest x-ray and we will follow. cc: Job Canela MD
[2018-09-15] MEDS ORDERED: CARDIZEM IV ONE (23:06)
[2018-09-16] MEDS: OXY IR PO PRN ×6 (02:36→22:55)
[2018-09-16] MEDS: ROBAXIN PO PRN (02:36)
[2018-09-16] MEDS: CLINDAMYCIN 600 MG/D5W 600 MG/50 ML IVPB IV SCH ×3 (05:34→20:01)
[2018-09-16] MEDS: NEURONTIN PO SCH ×3 (08:12→17:20)
[2018-09-16] MEDS: LEVAQUIN 750 MG/D5W 750 MG/150 ML IVPB IV SCH (08:12)
[2018-09-16] MEDS: PREDNISONE PO SCH (08:13)
[2018-09-16] MEDS: NICODERM PATCH TD SCH (08:13)
[2018-09-16] MEDS: LOPRESSOR PO SCH ×2 (08:13→21:00)
[2018-09-16] MEDS: DUONEB (A & A) INH PRN ×5 (09:19→23:24)
[2018-09-16 10:28] LABS: HEMOGLOBIN 12.2 g/dL (14.0-18.0); WBC 11.15 X1000 (4.8-10.8)
[2018-09-16 10:29] LABS: BASO# 0.05 X1000 (0.0-0.2); BASO% 0.4 % (0.0-0.8); EOS# 0.19 X1000 (0.0-0.7); EOS% 1.7 % (0.0-10.0); HEMATOCRIT 37.6 % (42.0-52.0); IMM GRAN# 0.04 X1000 (0.0-0.04); IMM GRAN% 0.4 % (0.0-0.5); LYMPH# 1.17 X1000 (1.2-3.4); LYMPH% 10.5 % (20.5-51.1); MCHC 32.4 g/dL (33-37); MCV 89.5 FL (81-99); MONO# 1.01 X1000 (0.11-0.59); MONO% 9.1 % (1.7-9.3); MPV 8.8 FL (7.4-10.4); NEUT# 8.69 X1000 (1.4-6.5); NEUT% 77.9 % (42.2-75.2); PLT 256 X1000 (130-400); RDW 17.5 % (11.5-14.5)
[2018-09-16 10:48] LABS: ALBUMIN 2.5 g/dL (3.5-5.0); CALCIUM 8.2 mg/dL (8.8-10.2); CREATININE 2.7 mg/dL (0.7-1.2); MAGNESIUM 1.3 mg/dL (1.5-2.7); TOTAL BILIRUBIN 0.4 mg/dL (0.20-1.00); TOTAL PROTEIN 5.9 g/dL (6.3-8.3)
[2018-09-16] MEDS: LASIX IV SCH (11:05)
[2018-09-16] MEDS ORDERED: MAGNESIUM SULFATE 2 GM/S.W.I. 2 GM/50 ML IVPB IV ONE ×2 (11:25→12:00)
[2018-09-16] MEDS ORDERED: KLOR-CON PO ONE (11:26)
[2018-09-16] MEDS: CARDIZEM IV PRN (18:37)
[2018-09-16] MEDS: MS CONTIN PO SCH (20:01)
[2018-09-16] MEDS: REMERON PO SCH (20:01)
[2018-09-16] MEDS: CYMBALTA PO SCH (20:01)
[2018-09-17] MEDS: OXY IR PO PRN ×4 (03:03→20:34)
[2018-09-17] MEDS: ROBAXIN PO PRN ×2 (03:03→13:23)
[2018-09-17] MEDS: DUONEB (A & A) INH PRN ×5 (03:04→22:35)
[2018-09-17] MEDS: CLINDAMYCIN 600 MG/D5W 600 MG/50 ML IVPB IV SCH ×3 (05:30→20:32)
[2018-09-17 06:06] LABS: ALBUMIN 2.9 g/dL (3.5-5.0); CALCIUM 8.3 mg/dL (8.8-10.2); MAGNESIUM 1.7 mg/dL (1.5-2.7); POTASSIUM 3.2 mmol/L (3.5-5.1); TOTAL BILIRUBIN 0.3 mg/dL (0.20-1.00); TOTAL PROTEIN 6.1 g/dL (6.3-8.3)
[2018-09-17] MEDS: LOPRESSOR PO SCH (07:59)
[2018-09-17] MEDS: PREDNISONE PO SCH (07:59)
[2018-09-17] MEDS: NEURONTIN PO SCH ×3 (07:59→16:19)
[2018-09-17] MEDS: MS CONTIN PO SCH ×2 (07:59→20:34)
[2018-09-17] MEDS: NICODERM PATCH TD SCH (08:00)
--- NOTE | 2018-09-17 09:15 | PROGRESS NOTE ---
DATE: 09/16/2018 SUBJECTIVE: Patient is much more awake and alert this morning. Blood pressures are improved. He is in no current respiratory distress. He is stating he wants to get his kneecap surgically repaired. OBJECTIVE: Vitals: Temperature 98, pulse 120s to 140s, respiratory rate 18, blood pressure 110/70. General: Patient is awake, alert. He is in no current respiratory distress. Does appear to be at his baseline respiratory status. Abdomen: Soft, nondistended. Extremities: Moves all extremities. Cardiovascular: Irregular rate, irregular rhythm. ASSESSMENT: 1. Fractured patella. 2. Atrial fibrillation with rapid ventricular response. 3. Chronic obstructive pulmonary disease, end-stage on hospice. 4. Hepatitis C. 5. Elevated prostate-specific antigen. 6. Chronic alcohol abuse, he currently is off Librium. 7. Chronic anxiety. Patient this morning has anxiety medicine back. 8. Chronic pain. Patient is wanting all his pain medications back. PLAN: Discussed with patient that it is highly unlikely that he would survive any type of surgical procedure given his severe chronic obstructive pulmonary disease. Regardless of that fact, he could not get a surgery until his heart rates have improved and he has bounced from the 50s and 60s to the 150s. We will continue to adjust and stop his Toprol as that seems to be dropping his blood pressure. We will try Cardizem to see if this will develop any better rate control. We may need to add digoxin. We will discuss with Cardiology. We discussed with the patient that alcohol, Xanax and pain medication is the way that folks end up accidentally, but permanently . Discussed that all pain medication, all benzodiazepines, all alcohol decreases respiratory status. We will continue to follow and to encourage better habits. cc: Job Canela MD
[2018-09-17] MEDS ORDERED: KLOR-CON PO ONE (10:27)
[2018-09-17] MEDS ORDERED: AYR NASAL SPRAY NAS PRN (12:52)
[2018-09-17] MEDS: CARDIZEM PO SCH ×2 (13:13→20:33)
--- NOTE | 2018-09-17 19:29 | PROGRESS NOTE ---
DATE: 09/17/2018 SUBJECTIVE: Patient is alert, oriented. He has no current complaints other than knee pain and shortness of breath, as well as his chronic pain. PHYSICAL EXAMINATION: Vital Signs: Reviewed. Temp 97.7, pulse 78, respiratory 20, BP 129/81. General: Patient is awake, alert. He is in no current respiratory distress. HEENT: Normocephalic. Neck: Supple. Cardiovascular: Rate controlled irregular rhythm. Chest: Clear. No crackles. No current wheezing. Decreased but equal breath sounds bilaterally. Abdomen: Soft, nondistended. Extremities: Moves all extremities. Left lower extremity is in a brace. ASSESSMENT: 1. Frequent falls. 2. Seizure disorder. 3. Atrial fibrillation, currently rate controlled. 4. Hyponatremia, resolved. 5. Hypokalemia. Will replace. 6. Acute renal failure of undetermined origin. The patient received vancomycin initially when he presented to the hospital. That has been stopped two days ago. His creatinine has risen slightly to 3.0. It was 2.7 yesterday and 0.9 on admission. We will stop his Levaquin at this point and will follow. 7. Chronic alcohol abuse. Patient currently is stable and is in no withdrawal. cc: Job Canela MD
[2018-09-17] MEDS: CYMBALTA PO SCH (20:32)
[2018-09-17] MEDS: REMERON PO SCH (20:32)
[2018-09-17 20:47] LABS: BASO# 0.04 X1000 (0.0-0.2); BASO% 0.3 % (0.0-0.8); EOS# 0.19 X1000 (0.0-0.7); EOS% 1.4 % (0.0-10.0); HEMATOCRIT 36.4 % (42.0-52.0); HEMOGLOBIN 11.2 g/dL (14.0-18.0); IMM GRAN# 0.08 X1000 (0.0-0.04); IMM GRAN% 0.6 % (0.0-0.5); LYMPH# 1.27 X1000 (1.2-3.4); LYMPH% 9.1 % (20.5-51.1); MCHC 30.8 g/dL (33-37); MONO# 1.53 X1000 (0.11-0.59); MONO% 10.9 % (1.7-9.3); MPV 9.9 FL (7.4-10.4); NEUT# 10.92 X1000 (1.4-6.5); NEUT% 77.7 % (42.2-75.2); PLT 295 X1000 (130-400); WBC 14.03 X1000 (4.8-10.8)
[2018-09-18] MEDS: OXY IR PO PRN ×3 (02:17→11:27)
[2018-09-18] MEDS: CLINDAMYCIN 600 MG/D5W 600 MG/50 ML IVPB IV SCH ×3 (04:29→21:00)
[2018-09-18] MEDS: CARDIZEM PO SCH (04:30)
[2018-09-18 06:24] LABS: HEMATOCRIT 32.7 % (42.0-52.0); HEMOGLOBIN 10.2 g/dL (14.0-18.0); MCH 27.9 PG (27-31); MCHC 31.2 g/dL (33-37); MCV 89.6 FL (81-99); MPV 9.4 FL (7.4-10.4); RBC 3.65 XMIL (4.7-6.1); RDW 17.4 % (11.5-14.5); WBC 13.52 X1000 (4.8-10.8)
[2018-09-18 06:40] LABS: ALBUMIN 2.9 g/dL (3.5-5.0); CALCIUM 8.3 mg/dL (8.8-10.2); CREATININE 3.2 mg/dL (0.7-1.2); MAGNESIUM 1.6 mg/dL (1.5-2.7); POTASSIUM 3.8 mmol/L (3.5-5.1); TOTAL BILIRUBIN 0.3 mg/dL (0.20-1.00); TOTAL PROTEIN 6.2 g/dL (6.3-8.3)
[2018-09-18] MEDS: DUONEB (A & A) INH PRN ×2 (08:15→11:57)
[2018-09-18] MEDS: NICODERM PATCH TD SCH (08:54)
[2018-09-18] MEDS: PREDNISONE PO SCH (08:55)
[2018-09-18] MEDS: MS CONTIN PO SCH ×2 (08:55→21:14)
[2018-09-18] MEDS: NEURONTIN PO SCH ×3 (08:55→16:17)
[2018-09-18] MEDS ORDERED: CARDIZEM CD PO SCH (09:45)
--- NOTE | 2018-09-18 10:06 | PROGRESS NOTE ---
DATE: 09/18/2018 SUBJECTIVE: Patient reports feeling fine. Still complaining of right knee pain. He has chronic pain there. No other issues noted as per nursing staff overnight. Actually, his heart rate has been well controlled. OBJECTIVE: Vital Signs: Temperature 98.4 degrees, heart rate 80. Respiratory rate 12, blood pressure 113/72. O2 saturation 96% on 5 L nasal cannula. General: This is a chronically ill- appearing and disheveled 63-year-old male, lying in bed, in no acute distress. Cardiovascular: S1, S2 heard. Irregularly irregular. No murmurs, gallops, or rubs noted. Respiratory: Decreased breath sounds globally with minimal wheezing noted in both pulmonary bases. Patient is not using any accessory muscles or having work of breathing. Abdomen: Soft. Nontender to palpation. Bowel sounds present. No organomegaly. Extremities: In the left knee, there is a brace in place. Peripheral pulses present in both legs. Neurological: Patient alert, oriented x3. Moves 4 extremities. LABORATORY DATA: Reviewed. ASSESSMENT AND PLAN: 1. Acute respiratory failure secondary to COPD exacerbation. Clinically, this patient is doing better. He has been requiring 3 L of oxygen by nasal cannula which is the same amount that he uses at home. At this point, we will continue with breathing treatments, as needed and we will continue with same management. 2. Atrial fibrillation. That condition is currently controlled. Actually, he was receiving Cardizem 60 mg p.o. 8 hours. I think at this point, I am going to change him to Cardizem CD 180 mg extended release form. 3. Seizure disorder. The patient reports having seizures, but not on any medication now because he said that he is on hospice. 4. Acute renal failure. I do not know exactly the reason why this patient has developed this problem. Apparently because of COPD exacerbation he was given vancomycin, but that was stopped 3 days ago. In any case, the creatinine on admission was normal and now continues to be elevated. At this point, we will continue checking his BMP and if that continues to get worse, we will request Nephrology consultation. 5. Chronic alcohol abuse. The patient is stable, not in any withdrawals. 6. Chronic pain. I went over with him the risk of being on such a huge amount of pain medication. I explained to him the risk of respiratory arrest if he continues to take those medications, but he was very clear that he does not care if he stops breathing, because for him the most important thing is to be comfortable. He also was advised about the high risk of using opiates in combination with benzodiazepines, but again, the same answer from him was that he does not care and he wants to be comfortable. In any case, the plan for him is to continue with the same management. We will keep checking BMP for creatinine and we will go from there. The patient is going to be transferred out of the intensive care unit today and he is planning to resume hospice service upon discharge. cc: Rolly Mai MD MTDD
--- NOTE | 2018-09-18 11:19 | EKG Report ---
Test Performed on : 09/15/2018 7:10:46 PM Test Reason : Blood Pressure : / mmHG Vent. Rate : 139 BPM Atrial Rate : 139 BPM P-R Int : 088 ms QRS Dur : 104 ms QT Int : 334 ms P-R-T Axes : 065 047 095 degrees QTc Int : 508 ms Sinus tachycardia. with short AL Possible Left atrial enlargement Incomplete right bundle branch block Nonspecific ST and T wave abnormality Abnormal ECG No previous ECGs available Confirmed by Ayo Rodriguez MD ([id number]) on 09/22/2018 7:38:09 AM
[2018-09-18] MEDS: ROBAXIN PO PRN (13:36)
[2018-09-18] MEDS: CARDIZEM IV PRN (14:33)
[2018-09-18] MEDS ORDERED: CARDIZEM IV ONE (15:00)
[2018-09-18] MEDS ORDERED: ATIVAN IV PRN (15:02)
[2018-09-18] MEDS: KEPPRA 1,000 MG/NS 1,000 MG/100 ML IVPB IV SCH (15:20)
[2018-09-18] MEDS: LIBRIUM PO SCH ×2 (15:34→21:13)
[2018-09-18] MEDS: CYMBALTA PO SCH (21:14)
[2018-09-18] MEDS: REMERON PO SCH (21:15)
[2018-09-19] MEDS: KEPPRA 1,000 MG/NS 1,000 MG/100 ML IVPB IV SCH ×2 (03:00→15:45)
[2018-09-19] MEDS: LIBRIUM PO SCH ×4 (04:12→23:42)
[2018-09-19] MEDS: CLINDAMYCIN 600 MG/D5W 600 MG/50 ML IVPB IV SCH ×3 (04:13→21:09)
[2018-09-19] MEDS: CARDIZEM IV PRN (04:13)
[2018-09-19] MEDS ORDERED: CARDIZEM CD PO SCH (09:00)
[2018-09-19] MEDS ORDERED: CARDIZEM 125 MG/D5W 125 MG/125 ML IVPB IV SCH (09:00)
[2018-09-19 09:09] LABS: BASO# 0.02 X1000 (0.0-0.2); BASO% 0.2 % (0.0-0.8); EOS# 0.23 X1000 (0.0-0.7); EOS% 1.8 % (0.0-10.0); HEMATOCRIT 33.2 % (42.0-52.0); HEMOGLOBIN 10.4 g/dL (14.0-18.0); IMM GRAN# 0.04 X1000 (0.0-0.04); IMM GRAN% 0.3 % (0.0-0.5); LYMPH% 7.9 % (20.5-51.1); MCH 27.9 PG (27-31); MCHC 31.3 g/dL (33-37); MONO# 1.17 X1000 (0.11-0.59); MONO% 9.3 % (1.7-9.3); MPV 8.4 FL (7.4-10.4); NEUT# 10.15 X1000 (1.4-6.5); NEUT% 80.5 % (42.2-75.2); PLT 282 X1000 (130-400); RBC 3.73 XMIL (4.7-6.1); RDW 17.3 % (11.5-14.5); WBC 12.61 X1000 (4.8-10.8)
[2018-09-19 09:23] LABS: CALCIUM 8.1 mg/dL (8.8-10.2); CREATININE 3.2 mg/dL (0.7-1.2); POTASSIUM 3.8 mmol/L (3.5-5.1)
--- NOTE | 2018-09-19 09:42 | PROGRESS NOTE ---
DATE: 09/19/2018 SUBJECTIVE: The patient heart rate started going up since yesterday afternoon. We have increased the dose of Cardizem CD from 120 to 180 and also he was receiving Cardizem CD 180 mg, but heart rate continues to be in the range of 130s to 140s, so he was sent back to the ICU. Also it was reported that he has had 1 episode of seizure that lasted less than 30 seconds. The patient is known to have a seizure disorder, but he is not on any medication because he is on hospice. No other issues noted on this patient recently. OBJECTIVE: Vitals: Temperature 98.4 degrees, heart rate 140, respiratory rate 12, blood pressure 109/75, O2 saturation 96% on 3 L nasal cannula. General: This is a chronically ill appearing and disheveled 63-year-old male, lying in bed, in no acute distress. Cardiovascular: S1, S2 heard. Tachycardic, irregularly irregular. No murmurs, gallops, or rubs noted. Respiratory: Decreased breath sounds globally with no wheezing noted in both pulmonary bases. Patient not using any accessory muscles or having work of breathing. Abdomen: Soft, nontender to palpation. Bowel sounds present. No organomegaly. Extremities: The left knee there is a brace in place. Peripheral pulses present in both legs. Neurological: The patient is definitely more sleepy and tremulous. He reports feeling more anxious. LABORATORY DATA: Still pending at the time of my dictation. ASSESSMENT: 1. Acute respiratory failure secondary to COPD exacerbation. Clinically, this patient is requiring between 3 to 4 L of oxygen by nasal cannula. He is basically at home on 3 L. He is still having some wheezing in the physical examination. We will continue with DuoNeb and intravenous steroids as well. 2. Alcohol withdrawal. The patient started having this problem since yesterday it. He is more sleepy. He is more tremulous. Actually, it has been 6 days since he drank beer the last time. At this point, he has been placed on baclofen 20 mg p.o. 3 times per day. Librium taper dose is given 1 mg IV q.2 hours p.r.n. alcohol withdrawal. We will see how this patient does. 3. Atrial fibrillation with rapid ventricular response. I think because of alcohol withdrawal this condition is no longer well-controlled. We increased the doses of Cardizem from 120s to 180s, but is still complaining of symptoms, and has still been tachycardic. In any case, I do prefer to start Cardizem drip on this patient and see how this patient does. 4. Seizure disorder. He had 1 episode of seizure here and even though we know that he has a seizure disorder, I prefer to start Keppra 1 g IV q.12 hours. 5. Acute renal failure. At the beginning, renal function was okay, but was getting worse recently. We do not have any results of BMP from today. 6. Chronic pain. We have talked with nurse and advised to not provide any pain medication to this patient unless he is awake and alert and requests for his usual medication. At this point, we will continue to monitor. 7. Disposition. Patient will remain in the intensive care unit. We will continue to monitor this patient closely. cc: Rolly Mai MD MTDD
[2018-09-19] MEDS: MS CONTIN PO SCH ×2 (10:00→23:42)
[2018-09-19] MEDS: NICODERM PATCH TD SCH (10:19)
[2018-09-19] MEDS: PREDNISONE PO SCH (10:19)
[2018-09-19] MEDS: NEURONTIN PO SCH ×3 (10:19→17:47)
[2018-09-19] MEDS: LIORESAL PO SCH ×3 (10:19→17:47)
[2018-09-19] MEDS: CYMBALTA PO SCH (23:41)
[2018-09-19] MEDS: REMERON PO SCH (23:43)
[2018-09-20] MEDS: KEPPRA 1,000 MG/NS 1,000 MG/100 ML IVPB IV SCH (02:39)
[2018-09-20] MEDS: ATIVAN IV PRN ×3 (02:52→12:58)
[2018-09-20] MEDS: LIBRIUM PO SCH ×4 (03:17→22:25)
[2018-09-20] MEDS: CLINDAMYCIN 600 MG/D5W 600 MG/50 ML IVPB IV SCH ×3 (04:40→20:43)
[2018-09-20 06:48] LABS: BASO# 0.02 X1000 (0.0-0.2); BASO% 0.2 % (0.0-0.8); EOS% 1.5 % (0.0-10.0); HEMATOCRIT 30.3 % (42.0-52.0); HEMOGLOBIN 9.4 g/dL (14.0-18.0); IMM GRAN# 0.04 X1000 (0.0-0.04); IMM GRAN% 0.3 % (0.0-0.5); LYMPH# 1.07 X1000 (1.2-3.4); LYMPH% 8.1 % (20.5-51.1); MCH 27.6 PG (27-31); MCV 88.9 FL (81-99); MONO# 1.17 X1000 (0.11-0.59); MONO% 8.8 % (1.7-9.3); MPV 9.1 FL (7.4-10.4); NEUT# 10.75 X1000 (1.4-6.5); NEUT% 81.1 % (42.2-75.2); PLT 353 X1000 (130-400); RBC 3.41 XMIL (4.7-6.1); RDW 17.5 % (11.5-14.5); WBC 13.25 X1000 (4.8-10.8)
[2018-09-20 06:52] LABS: CALCIUM 8.1 mg/dL (8.8-10.2); CREATININE 3.2 mg/dL (0.7-1.2); POTASSIUM 4.4 mmol/L (3.5-5.1)
--- NOTE | 2018-09-20 09:59 | PROGRESS NOTE ---
DATE: 09/20/2018 SUBJECTIVE: The patient is very sleepy. The patient has been on Cardizem drip because we were not able to control heart rate without using IV medications. That medication has been held the first hours of the morning. His heart rate has been in the range of 60s. Also, we were told that this patient had what looks like is seizure activity, but is on Keppra 1 mg intravenous every q.12 hours. OBJECTIVE: Vital Signs: Temperature 98.5 degrees, heart rate 76, respiratory rate 13 blood pressure 101/66, and O2 saturation 99% 2 L nasal cannula. General: This is a chronically ill- appearing and disheveled 63-year-old male, looking older than his stated age lying in bed in no acute distress. He is sleepier. Cardiovascular: S1, S2 heard. Irregularly irregular, but no murmurs, gallops, or rubs noted. Respiratory: Decreased breath sounds globally with no wheezing noted in both pulmonary bases. Patient is not using any accessory muscles or having work of breathing. Abdomen: Soft, nontender to palpation. Bowel sounds present. No organomegaly. Extremity: There is a left knee with with a brace in place. Peripheral pulses present in both legs. On clinical exam, patient is definitely more sleepy and tremulous, and lethargic. He does not follow commands and does not respond to verbal stimuli. LABORATORY DATA: White cell count 13.35, hemoglobin 9.4, hematocrit 30.3, and platelets 353,000. Creatinine 3.2. ASSESSMENT AND PLAN: 1. Acute respiratory failure secondary to COPD exacerbation. The patient is receiving breathing treatments and oxygen supplementation. Minimal wheezing noted on physical examination so at this point, we will continue with DuoNeb and intravenous steroids as well. 2. Alcohol withdrawal. The patient is on baclofen 20 mg p.o. 3 times per day. Of course, medications are making him to be very sleepy so we will treat him with the same management. 3. Acute kidney injury. At admission, the renal function is completely fine but creatinine continues to be high at 3.5. I do not know if he will recover or not. In any case, we will continue to check BMP daily. Avoid nephrotoxic medications. 4. Seizure disorder. I am not quite sure if those involuntary movement that this patient had are related to alcohol withdrawal or not, and not really a seizure disorder. In any case, patient is on Keppra 1 g IV q.12 hours which is supposed to control any seizure activity. We know that this patient had this condition for a few years but he has not been taking any medication for those. In any case, we will monitor this patient closely. 5. Chronic pain. Patient is taking huge amounts of pain medication on a regular basis. At this point. I have recommended nursing staff to continue to hold any pain medication until the patient is more awake. 6. Atrial fibrillation with RVR. Now the heart rate is better controlled so will try to provide Cardizem oral and will go from there. 7. Disposition: Patient will remain in the intensive care unit. We will monitor this patient closely. cc: Rolly Mai MD MTDD
[2018-09-20] MEDS ORDERED: VIMPAT IV SCH (11:00)
[2018-09-20] MEDS: LIORESAL PO SCH ×3 (11:06→16:15)
[2018-09-20] MEDS: MS CONTIN PO SCH ×2 (11:06→22:25)
[2018-09-20] MEDS: NICODERM PATCH TD SCH (11:07)
[2018-09-20] MEDS: PREDNISONE PO SCH (11:07)
[2018-09-20] MEDS: CARDIZEM CD PO SCH (11:07)
[2018-09-20] MEDS: KEPPRA 1,500 MG/NS 1,500 MG/100 ML IVPB IV SCH ×2 (11:29→22:50)
--- NOTE | 2018-09-20 11:34 | Diag Imaging Result Doc PS360 ---
EXAM: CT HEAD W/O CONTRAST HISTORY: persistent seizures TECHNIQUE: CT head without contrast COMPARISON: 09/12/2018 FINDINGS: Motion degrades image quality. No parenchymal hemorrhage. No epidural or subdural hematoma. No subarachnoid hemorrhage. No mass identified on this noncontrasted exam. No hydrocephalus. No sinus opacification. IMPRESSION: No hemorrhage. Negative brain CT without contrast. This exam was performed using automated exposure control, adjustment of mA or kV according to patient size, and/or use of iterative reconstruction technique. Electronically signed by Zeus Aguila 09/20/2018 11:31 AM
[2018-09-20] MEDS: NS IV SCH (13:57)
[2018-09-20] MEDS: VIMPAT IV SCH (13:57)
[2018-09-20] MEDS ORDERED: CARDIZEM 125 MG/D5W 125 MG/125 ML IVPB ONE (15:01)
[2018-09-20] MEDS: CARDIZEM 125 MG/D5W 125 MG/125 ML IVPB IV SCH (15:32)
[2018-09-20] MEDS: CYMBALTA PO SCH (22:25)
[2018-09-20] MEDS: REMERON PO SCH (22:26)
[2018-09-21] MEDS: VIMPAT IV SCH ×2 (01:36→14:32)
[2018-09-21] MEDS: NS IV SCH ×2 (01:36→14:32)
[2018-09-21] MEDS: LIBRIUM PO SCH ×2 (03:41→09:27)
[2018-09-21] MEDS: CLINDAMYCIN 600 MG/D5W 600 MG/50 ML IVPB IV SCH (04:23)
[2018-09-21] MEDS: CARDIZEM 125 MG/D5W 125 MG/125 ML IVPB IV SCH (07:07)
[2018-09-21 07:33] LABS: BASO# 0.04 X1000 (0.0-0.2); BASO% 0.3 % (0.0-0.8); EOS# 0.12 X1000 (0.0-0.7); EOS% 0.9 % (0.0-10.0); HEMATOCRIT 30.9 % (42.0-52.0); HEMOGLOBIN 9.9 g/dL (14.0-18.0); IMM GRAN# 0.05 X1000 (0.0-0.04); IMM GRAN% 0.4 % (0.0-0.5); LYMPH# 0.87 X1000 (1.2-3.4); LYMPH% 6.3 % (20.5-51.1); MCV 87.5 FL (81-99); MONO# 1.34 X1000 (0.11-0.59); MONO% 9.7 % (1.7-9.3); MPV 8.7 FL (7.4-10.4); NEUT# 11.42 X1000 (1.4-6.5); NEUT% 82.4 % (42.2-75.2); PLT 349 X1000 (130-400); RBC 3.53 XMIL (4.7-6.1); RDW 17.7 % (11.5-14.5); WBC 13.84 X1000 (4.8-10.8)
[2018-09-21 07:50] LABS: CALCIUM 8.2 mg/dL (8.8-10.2); CREATININE 3.4 mg/dL (0.7-1.2); POTASSIUM 4.1 mmol/L (3.5-5.1)
[2018-09-21] MEDS: ATIVAN IV PRN ×2 (08:17→20:02)
[2018-09-21] MEDS: CARDIZEM CD PO SCH (09:26)
[2018-09-21] MEDS: LIORESAL PO SCH ×3 (09:26→17:17)
[2018-09-21] MEDS: MS CONTIN PO SCH ×2 (09:27→22:55)
[2018-09-21] MEDS: PREDNISONE PO SCH (09:27)
[2018-09-21] MEDS: NICODERM PATCH TD SCH (09:28)
[2018-09-21] MEDS ORDERED: TEFLARO 300 MG in NS 250 ML IV SCH (10:00)
--- NOTE | 2018-09-21 10:35 | PROGRESS NOTE ---
DATE: 09/21/2018 SUBJECTIVE: The patient continues to be very lethargic. Apparently, the last episode of seizure was last night. We have started him on Vimpat 100 mg IV q.12 hours on top of Keppra 1500 mg IV q.12 hours. He is still on Cardizem drip because he is not able to take anything by mouth. OBJECTIVE: Vital Signs: Temperature 97.5 degrees, heart rate 84, respiratory rate 14, blood pressure 101/67, O2 saturation 97% on 3 L nasal cannula. General: This is a chronically ill- appearing, disheveled 63-year-old male, looking older than his stated age, lying in bed, in no acute distress. Lethargic and not able to answer any questions. Cardiovascular: S1, S2 heard. Irregularly irregular heart rhythm but no murmurs, gallops, or rubs noted. Respiratory: Decreased breath sounds globally with no wheezing noted in both pulmonary bases. The patient is not using any accessory muscles or having work of breathing. Abdomen: Soft, nontender to palpation. Bowel sounds present. No organomegaly. Extremities: There is a brace placed at the left knee. Peripheral pulses present in both legs. Neurological: The patient continues to be lethargic and tremulous. He does not follow commands. He does not respond to verbal stimuli. Moves 4 extremities spontaneously. LABORATORY DATA: White cell count 13.84, hemoglobin 9.9, hematocrit 30.9, platelets 349,000. The creatinine is 3.4. ASSESSMENT AND PLAN: 1. Acute respiratory failure secondary to chronic obstructive pulmonary disease exacerbation. The patient continues to require 3 to 4 L of oxygen by nasal cannula. He is at home on 3 L of oxygen. There is still mild wheezing noted in pulmonary bases and more rhonchi. I am thinking that he may have aspirated when he started having seizures, so we are going to do a CT of the thorax without contrast and we will go from there. Currently, he is on clindamycin, I think at this point, for coverage of gram-positive bacteria. Will start Zyvox and Azactam for gram negative coverage. He is becoming more tachypneic so we may need to consult Pulmonary very soon. 2. Alcohol withdrawal. That condition started happening 2 days ago. He is supposed to be on baclofen and Librium but he is not able to take anything by mouth. So, at this point, we will continue with Ativan p.r.n. IV. He is still very lethargic. 3. Seizure disorder. The patient has history of seizures. According to who is at bedside, he started taking the medication that she does not recall which one it was but started taking it for the last 2 months. The patient reported last Tuesday when he was awake that he was not taking anything. I am not quite sure also if those involuntary movements that this patient has are related to seizure disorder or alcohol withdrawal. In any case, we have ordered an EEG and we have put a consult for Neurology and see what else we can do for this patient. Currently, he is on Keppra 1 g IV q.12 hours and also Vimpat 100 mg IV q.12 hours. The last episode of involuntary movements was last night. We will continue to monitor this patient closely. 4. Acute renal failure. As mentioned before, on admission, renal function was completely fine but now, creatinine continues to be higher. He has good urine output. I think this could be acute tubular necrosis. In any case, we will continue to check BMP daily. We will continue to avoid nephrotoxic medication. If renal function continues to get worse, we will consider Nephrology consultation. 5. Chronic pain. At home, patient is taking enormous amount of pain medication on a regular basis. That has been held because of his mental status. At this point, we will continue to monitor this patient closely. 6. Atrial fibrillation with rapid ventricular response. Unfortunately, because this patient is not able to take any medication by mouth, we needed to continue with the Cardizem drip. He is receiving 5 mg per hour now. We will continue with the same management. DISPOSITION: The patient will remain in the intensive care unit. His prognosis is guarded. I have informed the who was at bedside, about his clinical situation and plan of care. Considering that he needs to be seen by Neurologist and Online Facilitator and he may need to be seen eventually by Pulmonary because of his worsening respiratory condition will transfer this patient to [facility]. cc: MD VAL De La O
[2018-09-21] MEDS: AZACTAM 1 GM in NS 50 ML IV SCH ×2 (11:05→18:18)
--- NOTE | 2018-09-21 11:46 | Diag Imaging Result Doc PS360 ---
EXAM: CT THORAX W/O CONTRAST - 09/21/2018 HISTORY: suspected aspiration pna TECHNIQUE: CT thorax without contrast. No contrast administered per request of the referring provider. COMPARISON: 09/16/2015 CT thorax with contrast FINDINGS: There are COPD/emphysematous changes. There is apparent pulmonary fibrosis/scarring. There is bilateral pleural thickening which has increased. The pleural thickening is most prominent posteriorly. There are tiny right and small left pleural effusions associated with the pleural thickening. There is rounded atelectasis at the left lower lobe which is increased mildly. There are some dependent/compressive atelectasis at the right lower lobe. There is no other discrete acute consolidation identified. There is no pneumothorax identified. IMPRESSION: COPD/emphysematous changes. Pulmonary fibrosis/scarring. Probably chronic but increased bilateral pleural thickening. Associated tiny right and small left pleural effusions. Mildly increased rounded atelectasis at left lower lobe. Dependent/compressive atelectasis at right lower lobe. No discrete pneumonia identified which is distinguishable from the scarring and atelectasis. This exam was performed using automated exposure control, adjustment of mA or kV according to patient size, and/or use of iterative reconstruction technique. Electronically signed by Omkar Tony 09/21/2018 11:43 AM
[2018-09-21] MEDS: KEPPRA 1,500 MG/NS 1,500 MG/100 ML IVPB IV SCH (11:49)
[2018-09-21] MEDS: ZYVOX 600 MG/D5W 600 MG/300 ML IVPB IV SCH ×2 (12:30→23:18)
[2018-09-21] MEDS ORDERED: CEREBYX IV ONE (16:25)
[2018-09-21] MEDS ORDERED: CEREBYX 1,500 MG in NS 100 ML IV ONE (17:00)
[2018-09-21] MEDS ORDERED: LEVOPHED 8 MG in D5 1/2 NS 250 ML IV SCH ×3 (18:15→23:00)
[2018-09-21] MEDS ORDERED: LANOXIN IV ONE (20:04)
--- NOTE | 2018-09-21 20:16 | CONSULTATION ---
DATE OF CONSULTATION: 09/21/2018 HISTORY OF PRESENT ILLNESS: Mr. Singh is 63 years old and there is reported recent onset seizure, persistent poor responsiveness now. History from his attentive at the bedside and from review of hospital records is that he has chronic excessive ethanol use for most of his adult life. He has ingested ethanol to the point of passing out in the past. believes he might have had "mild" DTs, but never seizure. About a month and a half ago, she saw him have 1st apparent seizure. He fell and began trembling on 1 side and then all over. He was unresponsive. He has had several more episodes in the last 6 weeks. There have been some minor injuries. Falls have not been associated with incontinence, tongue or lip biting. She has seen these episodes occur more often when he was intoxicated than after he had stopped drinking. At baseline, he has been forgetful, probably gradually worse in recent months. believes he would not be able to care for himself if she did not supervise medications and provide meals and encouragement to eat. He has been taking alprazolam 1 mg averaging a few doses per day chronically supervised by . He recently switched from oxycodone to morphine for pain management. In retrospect, believes that opioid change may have been when he seemed to change mentally and begin having these episodes. He was admitted with exacerbation of COPD and possible seizure 9 days ago. He has had some behavior here, thought to be clinical seizure. He was started on levetiracetam and has been receiving 1500 mg q.12 hours IV. Lacosamide 100 mg IV q.12 hours was added. He was treated with chlordiazepoxide earlier this admission and when he became unable to swallow consistently, that was switched to lorazepam. He has had lorazepam 1 mg only 1 dose each of the last few days. Noncontrast CT of the head was unremarkable on 09/12/2018. LABORATORIES: Lab showed WBC 13,000, creatinine gradually climbing 3.4 now and BUN climbing 25 now. Liver enzymes are good. CK was elevated at 345 on admission. Sodium was initially 122 and later 144 with gradual correction over these several days in the hospital. EEG shows predominantly burst suppression pattern and there are some sharp waves associated with the bursts of higher activity concerning for seizure. PHYSICAL EXAMINATION: On exam, Mr. Singh is supine, breathing spontaneously, very poorly responsive. With persistent noxious stimulation he grumbled, grimaced, but did not communicate. Head is unremarkable. Neck is supple. There is no meningismus. Limb tone is symmetric. Plantar response is silent bilaterally. Reflexes are absent at the ankles. There is full lateral eye movement with passive head turning. Pupils react to bright light equally. Corneal reflex is present bilaterally. Facial motility is symmetric. IMPRESSION: Global encephalopathy, uncertain etiology. There is concern for subclinical seizures, levetiracetam/lacosamide intoxication (in light of the relatively high levetiracetam dose and poor renal function), combination of factors. I do not think there is benzodiazepine intoxication. History does not sound like purely ethanol withdrawal syndrome. I am concerned that he may have a baseline cognitive impairment syndrome which would further predispose him to more prominent and protracted encephalopathy with any toxic or metabolic disturbance. We will order levetiracetam and lacosamide levels, empirically reduce levetiracetam dose, discontinue lacosamide, add fosphenytoin and follow clinically. Soon, we might need to consider repeat imaging and possibly repeat EEG later. Sodium was moderately low on presentation and has been corrected slowly and I do not see any clinical evidence of brainstem dysfunction to suggest pontine myelinolysis. He has some minor metabolic findings, but nothing that would generally be expected to produce encephalopathy. Thanks for asking Neurology to see Mr. Singh. cc: MD VAL Barth III
[2018-09-21 21:09] LABS: ALLEN TEST YES; BE 2.6 mmoll (-3.0-3.0); BLOOD TYPE ARTERIAL; HCO3-(ACT) 26.9 mmoll (20.0-26.0); METHB 1.2 % (0.0-1.5); O2(CT) 14.9 mL/dL (15.0-23.0); O2HB 93.1 % (95.0-99.0); PCO2(98.6) 48 mmHg (35-45); PO2(98.6) 75 mmHg (60-100); SAMPLE BLOOD; SAO2 96.7 % (95.0-100.0); THB 11.3 g/dL (11.5-17.4); pH(98.6) 7.38 (7.35-7.45)
[2018-09-21 21:11] LABS: MODALITY VENTIMASK
[2018-09-21] MEDS: SOLU-MEDROL IV SCH (22:35)
[2018-09-21] MEDS: DUONEB (A & A) INH PRN (22:50)
[2018-09-21] MEDS ORDERED: AYR NASAL SPRAY NAS PRN (22:51)
[2018-09-21] MEDS ORDERED: CARDIZEM 125 MG/D5W 125 MG/125 ML IVPB IV SCH (23:00)
[2018-09-21] MEDS: CEREBYX 200 MG in NS 50 ML IV SCH (23:18)
[2018-09-22] MEDS: AZACTAM 1 GM in NS 50 ML IV SCH ×3 (03:54→18:32)
[2018-09-22 04:38] LABS: ALLEN TEST YES; BE 1.3 mmoll (-3.0-3.0); BLOOD TYPE ARTERIAL; HCO3-(ACT) 25.8 mmoll (20.0-26.0); METHB 1.3 % (0.0-1.5); O2(CT) 22.6 mL/dL (15.0-23.0); O2HB 93.9 % (95.0-99.0); PCO2(98.6) 46 mmHg (35-45); PO2(98.6) 83 mmHg (60-100); SAMPLE BLOOD; SAO2 97.2 % (95.0-100.0); THB 17.1 g/dL (11.5-17.4); pH(98.6) 7.38 (7.35-7.45)
[2018-09-22 04:39] LABS: MODALITY VENTIMASK
[2018-09-22] MEDS: SOLU-MEDROL IV SCH ×4 (04:52→22:09)
[2018-09-22 05:48] LABS: BASO# 0.04 X1000 (0.0-0.2); BASO% 0.2 % (0.0-0.8); EOS# 0.01 X1000 (0.0-0.7); EOS% 0.1 % (0.0-10.0); IMM GRAN# 0.06 X1000 (0.0-0.04); IMM GRAN% 0.4 % (0.0-0.5); LYMPH# 0.32 X1000 (1.2-3.4); MCH 28.4 PG (27-31); MCHC 32.4 g/dL (33-37); MCV 87.6 FL (81-99); MONO# 0.21 X1000 (0.11-0.59); MONO% 1.3 % (1.7-9.3); NEUT# 15.53 X1000 (1.4-6.5); PLT 370 X1000 (130-400); RBC 3.88 XMIL (4.7-6.1); RDW 17.4 % (11.5-14.5); WBC 16.17 X1000 (4.8-10.8)
[2018-09-22 05:49] LABS: ALBUMIN 2.9 g/dL (3.5-5.0); CALCIUM 8.5 mg/dL (8.8-10.2); CREATININE 2.9 mg/dL (0.7-1.2); PHOSPHORUS 4.9 mg/dL (2.7-4.5); POTASSIUM 4.4 mmol/L (3.5-5.1)
[2018-09-22] MEDS: DUONEB (A & A) INH PRN ×5 (07:16→23:37)
[2018-09-22 07:51] LABS: BANDS 2 % (0-1); LYMPHS 2 % (21-51); MONO 4 % (1-9); SEGS 92 % (42-75)
[2018-09-22] MEDS: CARDIZEM CD PO SCH (09:44)
[2018-09-22] MEDS: LIORESAL PO SCH ×3 (09:45→18:28)
[2018-09-22] MEDS: MS CONTIN PO SCH ×2 (09:46→22:08)
[2018-09-22] MEDS: NICODERM PATCH TD SCH (09:47)
--- NOTE | 2018-09-22 09:50 | PROGRESS NOTE ---
DATE: 09/22/2018 SUBJECTIVE: Mr. Singh has not had clinically recognized seizure or significant neurologic change since since I saw him at [place] late yesterday. OBJECTIVE: He looks about the same as when I saw him yesterday. He is breathing spontaneously. He has full lateral eye movement with passive head turning. Corneal reflexes are present. Facial motility is symmetric. Limb tone is symmetric. With vigorous sustained noxious stimulation, he grimaced and might have briefly grumbled but he did not communicate. Neck is supple. Phenytoin level was 17. We are holding levetiracetam pending report on level ordered last night. I think we can continue to manage without lacosamide. Renal function looks a little bit better today. IMPRESSION: Global encephalopathy, likely multifactorial. There is concern for subclinical seizure, levetiracetam toxicity, uremic encephalopathy. Any or all of these, with his baseline cognitive impairment might enough to explain the clinical picture. I discussed neurologic situation with . She understands no guarantee that he will recover. Would continue phenytoin, await levetiracetam level, consider resume levetiracetam if clinical seizure. Consider repeat imaging and EEG Tuesday, depending on clinical course. Thanks for asking Neurology to see Mr. Singh. cc: Anel Sweeney III, MD [facility]QU[facility] HOSPITALAlana
[2018-09-22] MEDS: CEREBYX 200 MG in NS 50 ML IV SCH (10:10)
[2018-09-22] MEDS: ZYVOX 600 MG/D5W 600 MG/300 ML IVPB IV SCH (11:33)
[2018-09-22] MEDS: SODIUM CHLORIDE 0.9% INJ SCH (11:37)
[2018-09-22] MEDS: PROTONIX IV SCH (11:37)
--- NOTE | 2018-09-22 11:38 | PROGRESS NOTE ---
DATE: 09/22/2018 SUBJECTIVE: The patient is resting in bed. He is very lethargic, difficult to arouse. OBJECTIVE: Vital signs: Temperature 97.5 degrees, pulse 71, respiratory rate 20, blood pressure is 129/70, O2 saturation 99%. HEENT: Atraumatic and normocephalic. Cardiovascular: S1, S2. Respiratory system: Has evidence of good air entry bilaterally. Abdomen: Soft, nontender. No masses. Extremities: No evidence of edema. Central nervous system: No obvious focal deficits noted. LABORATORY DATA: WBC 16.17, hematocrit is 34.0 with a platelet count of 370,000. ABG 7.38/46/83/ 97.2. Chemistry: Sodium is 143, potassium 4.4, chloride is 104, bicarb 25, BUN is 28, creatinine 2.9. ASSESSMENT AND PLAN: 1. Acute respiratory failure secondary to chronic obstructive pulmonary disease. Maintain patient on supplemental oxygen. Regarding chronic obstructive pulmonary disease, maintain him on nebulized bronchodilators, steroids, as well as antibiotics. 2. Alcoholism. Maintain patient on delirium tremens prophylaxis. Continue thiamine, folic acid, as well as multivitamin. Check magnesium and phosphorus levels and replace those if needed. 3. Seizure disorder. Maintain patient on seizure precaution. Continue antiepileptics. Neurology consulted. 4. Acute kidney injury. Follow up on renal function. Maintain patient on intravenous fluids. Avoid nephrotoxic agents. 5. Atrial fibrillation with rapid ventricular rate. Continue Cardizem infusion for rate control. Consult with Cardiology. 6. Deep vein thrombosis prophylaxis. Sequential compression devices. 7. Gastrointestinal prophylaxis. Proton pump inhibitor. cc: John Thornton MD
--- NOTE | 2018-09-22 12:39 | NEPHROLOGY CONSULTATION ---
DATE: 09/22/2018 ATTENDING PHYSICIAN: Dr. Archer. He is also the consulting physician. REASON FOR CONSULTATION: Worsening YANETH. HISTORY OF PRESENT ILLNESS: The patient is not able to provide any history as he is obtunded. He was admitted to the hospital on 09/13, with a history of hepatitis C, COPD, seizure disorder, and chronic alcoholism. He is currently under hospice care for his COPD. He had seizures, altered mental status, and atrial fibrillation with rapid ventricular response. He was admitted to the ICU. His course was complicated by significant hypotension and has required vasopressor support within the last 24 hours. His urine output has been acceptable throughout, but in this context, his creatinine magaly from normal on the to as high as 3.4 on yesterday. He has not received any IV contrast. Review of his medication administration discloses no overtly nephrotoxic medications. Currently he is obtunded and not able to provide any further history. PAST MEDICAL HISTORY: As above. CURRENT MEDICATIONS: Oxy-IR, DuoNeb, NicoDerm, MS Contin, baclofen, Cardizem, Ativan, Zyvox, Solu- Medrol, Cerebyx, Levophed, and Azactam. ALLERGIES: Penicillin. SOCIAL HISTORY: Otherwise not obtainable except as listed. FAMILY HISTORY: Otherwise not obtainable except as listed. REVIEW OF SYSTEMS: Otherwise not obtainable except as listed. PHYSICAL EXAMINATION: Vital Signs: Blood pressure 115/73, heart rate 67, respirations 17. General: No acute distress. Unresponsive. Skin: Warm and dry, thin, with ecchymoses. HEENT/Neck: Conjunctivae are pale. Pupils are equal. Neck veins are not visible. Oropharynx is dry. Heart: Regular. No gallops. Lungs: Equal. No crackles or wheezes. Shallow. Abdomen: Soft, nontender. Bowel sounds present. Extremities: No edema, clubbing or cyanosis. IMPRESSION: Acute kidney injury. Likely ischemic ATN. Good urine output. No acute indications for dialysis. Poor dialysis candidate in any event. Creatinine is actually slightly better today at 2.9. No changes are required. We will follow with you. cc: Hernando Fleming MD
[2018-09-22] MEDS: THIAMINE 100 MG in NS 50 ML IV SCH (12:53)
[2018-09-22] MEDS: FOLIC ACID 1 MG in NS 50 ML IV SCH (12:53)
--- NOTE | 2018-09-22 13:44 | Diag Imaging Result Doc PS360 ---
CHEST/ABD TUBE PLACEMENT - 09/22/2018 INDICATION: ngt placement COMPARISON: 09/15/2018 FINDINGS: There is a nasogastric tube in good position in the stomach. There are stable ill-defined opacities in the lung bases bilaterally. Stable small bilateral pleural effusions versus pleural thickening. IMPRESSION: Good nasogastric tube placement. Electronically signed by Jose Alberto Brown 09/22/2018 1:42 PM
--- NOTE | 2018-09-22 14:43 | EEG REPORT ---
DATE: 09/21/2018 EEG #[id number]. COMMENT: This is a digitally recorded EEG done portably in the [place] ICU on a 63-year-old patient with persistent poor responsiveness, question of recent onset seizures, concern for subclinical seizures. FINDINGS: There are bursts of higher amplitude slowing, mostly generalized with sometimes associated sharp wave. These bursts last 0.5 to 1.5 seconds and are by 1-5 second periods of relative voltage suppression. There was no variation to correlate with spontaneous drowsing or sleep. There was not definite electrographic seizure recorded. Photic stimulation did not alter the record. INTERPRETATION: Abnormal EEG because of generalized epileptiform discharge and some burst suppression features. CORRELATION: This is indicative of a diffuse encephalopathy and would correlate with clinical seizure, but electrographic seizure was not recorded. cc: MD Rolly Barth III, MD
[2018-09-22 17:50] LABS: URINE SOURCE CATH
[2018-09-22 18:04] LABS: UR CREAT RANDOM 102.6 mg/dL (14-26); UR PROT RANDOM 25.4 mg/dL
[2018-09-22 18:06] LABS: BILIRUBIN URINE NEGATIVE (NEGATIVE); BLOOD URINE SMALL (NEGATIVE); COLOR YELLOW; GLUCOSE URINE NEGATIVE (NEGATIVE); KETONE URINE NEGATIVE (NEGATIVE); LEUKOCYTES URINE MODERATE (NEGATIVE); NITRITE URINE NEGATIVE (NEGATIVE); PH URINE 5.5; PROTEIN URINE TRACE mg/dL (NEGATIVE); SP GRAVITY URINE 1.014; TURBIDITY URINE CLEAR (CLEAR); UR EPITHELIAL CELLS <10 /HPF (<10); URINE BACTERIA NEGATIVE /HPF; URINE RBC <10 /HPF (<10); URINE WBC 20-40 /HPF (<10); UROBILINOGEN URINE NORMAL (NORMAL)
--- NOTE | 2018-09-22 22:14 | CONSULTATION ---
DATE OF CONSULTATION: 09/22/2018 CHIEF COMPLAINT: Respiratory failure, chronic obstructive pulmonary disease exacerbation. HISTORY OF PRESENT ILLNESS: This is a 63-year-old, male with a past medical history of COPD, hepatitis C, seizure disorder, and alcoholism. He is currently under hospice care. Recent chest CT revealed dependent compressive atelectasis in right lower lobe and pulmonary fibrosis/scarring with COPD/emphysematous changes. PAST MEDICAL HISTORY: As mentioned in the HPI. REVIEW OF SYSTEMS: A 10-point review of systems was conducted, and the pertinent is listed within the HPI, otherwise noncontributory. SOCIAL HISTORY: He lives with his . Smokes half pack of cigarettes per day. Drinks at least 6-8 beers daily. ALLERGIES: Penicillin causes anaphylaxis. HOME MEDICATIONS: Please see home reconciliation list. PHYSICAL EXAMINATION: Vital Signs: Blood pressure 129/73, temperature is 97.5, respiratory rate 20, pulse 71, O2 saturation 99% per O2 with Venturi mask. General: A 63-year-old, male who is lying in bed in no acute distress at the present time. HEENT: Head is normocephalic, atraumatic. Mucous membranes dry. Neck: Supple. Trachea midline. Cardiovascular: Irregular rate and rhythm. S1, S2 auscultated. Pulmonary: Decreased breath sounds throughout lung bates. Nonlabored. Gastrointestinal: Soft, nontender, nondistended. Bowel sounds present within all 4 quadrants. Neurologic: Arousable, awake. Garbled speech. Follows commands. LABORATORY DATA: White blood cells 16.17, red blood cells 3.88, hemoglobin 11.0, hematocrit 34.0, pH 7.38, pCO2 46, pO2 83, HCO3 25.8, base excess 1.3, oxyhemoglobin 93.9. Sodium 143, potassium 4.4, chloride 104, carbon dioxide 25, BUN 28, creatinine 2.9, glucose 179, calcium 8.5, phosphorus 5.8. DIAGNOSTIC DATA: Mentioned in the HPI. Otherwise, noncontributory. ASSESSMENT AND PLAN: 1. This is a 63-year-old, male with chronic obstructive pulmonary disease exacerbation, acute respiratory failure. Continue supplemental oxygen, antibiotics, steroids, bronchodilators as prescribed. We will continue to monitor daily ABGs. 2. Seizure disorder. Neurology consulted. 3. Alcohol withdrawal. Continue Ativan IV p.r.n. Thank you for the courtesy of this consult. Dictated by KRZYSZTOF Anaya for Nikolay Bush MD cc: KRZYSZTOF Anaya MD
[2018-09-23] MEDS: ZYVOX 600 MG/D5W 600 MG/300 ML IVPB IV SCH ×3 (00:01→23:21)
[2018-09-23] MEDS: SOLU-MEDROL IV SCH ×4 (03:00→23:21)
[2018-09-23] MEDS: AZACTAM 1 GM in NS 50 ML IV SCH ×3 (03:00→17:44)
[2018-09-23] MEDS: DUONEB (A & A) INH PRN ×3 (03:21→23:30)
[2018-09-23 03:54] LABS: BASO# 0.02 X1000 (0.0-0.2); BASO% 0.1 % (0.0-0.8); EOS# 0.03 X1000 (0.0-0.7); EOS% 0.1 % (0.0-10.0); HEMATOCRIT 34.9 % (42.0-52.0); HEMOGLOBIN 11.2 g/dL (14.0-18.0); IMM GRAN# 0.09 X1000 (0.0-0.04); IMM GRAN% 0.4 % (0.0-0.5); LYMPH# 0.53 X1000 (1.2-3.4); LYMPH% 2.5 % (20.5-51.1); MCH 27.9 PG (27-31); MCHC 32.1 g/dL (33-37); MCV 86.8 FL (81-99); MONO# 0.48 X1000 (0.11-0.59); MONO% 2.3 % (1.7-9.3); MPV 9.2 FL (7.4-10.4); NEUT# 20.04 X1000 (1.4-6.5); NEUT% 94.6 % (42.2-75.2); PLT 456 X1000 (130-400); RBC 4.02 XMIL (4.7-6.1); RDW 17.4 % (11.5-14.5); WBC 21.19 X1000 (4.8-10.8)
[2018-09-23 04:11] LABS: CALCIUM 8.4 mg/dL (8.8-10.2); CREATININE 2.7 mg/dL (0.7-1.2); MAGNESIUM 1.9 mg/dL (1.5-2.7); PHOSPHORUS 4.9 mg/dL (2.7-4.5); POTASSIUM 4.8 mmol/L (3.5-5.1)
[2018-09-23 04:25] LABS: LYMPHS 4 % (21-51); MONO 1 % (1-9); SEGS 95 % (42-75)
[2018-09-23 05:03] LABS: ALLEN TEST YES; BE 4.4 mmoll (-3.0-3.0); BLOOD TYPE ARTERIAL; HCO3-(ACT) 28.3 mmoll (20.0-26.0); METHB 1.2 % (0.0-1.5); O2(CT) 15.6 mL/dL (15.0-23.0); O2HB 94.1 % (95.0-99.0); PCO2(98.6) 50 mmHg (35-45); PO2(98.6) 80 mmHg (60-100); SAMPLE BLOOD; SAO2 97.3 % (95.0-100.0); THB 11.7 g/dL (11.5-17.4); pH(98.6) 7.39 (7.35-7.45)
[2018-09-23 05:04] LABS: MODALITY VENTIMASK
--- NOTE | 2018-09-23 07:56 | Diag Imaging Result Doc PS360 ---
EXAM: CHEST-1 VIEW INDICATION: SOB TECHNIQUE: One view COMPARISON: 09/22/2018 FINDINGS: The NG tube is in stable position. Bibasilar infiltrates are essentially stable. Interstitial thickening versus small effusions bilaterally are stable. No new consolidation is identified. Cardiac silhouette is stable. IMPRESSION: Stable chest. Electronically signed by Daniel Kelley 09/23/2018 7:53 AM
[2018-09-23] MEDS: NICODERM PATCH TD SCH (08:47)
[2018-09-23] MEDS: CENTRUM TABLET NG SCH (08:47)
[2018-09-23] MEDS: SODIUM CHLORIDE 0.9% INJ SCH (08:50)
[2018-09-23] MEDS: LIORESAL PO SCH (09:03)
[2018-09-23] MEDS: CEREBYX 200 MG in NS 50 ML IV SCH ×4 (10:51→23:21)
--- NOTE | 2018-09-23 11:17 | Diag Imaging Result Doc PS360 ---
EXAM: US RENAL 2 (RETROPER) COMPLETE INDICATION: decreased renal function TECHNIQUE: COMPARISON: None. FINDINGS: Imaging of the left kidney is somewhat limited due to positioning of the patient and overlying bowel gas. The visualized echotexture is grossly unremarkable. No discrete solid renal mass or hydronephrosis is identified. The right kidney measures 10.2 cm and the left kidney measures 11.1 cm in the greatest longitudinal axes. The right renal cortex measures 0.9 cm and the left renal cortex measures 1.2 cm in thickness. There is a Angela catheter in the urinary bladder and the bladder is decompressed. IMPRESSION: Limited visualization of the left kidney. Essentially unremarkable renal ultrasound, otherwise. Electronically signed by Daniel Kelley 09/23/2018 11:15 AM
[2018-09-23] MEDS: FOLIC ACID 1 MG in NS 50 ML IV SCH (11:29)
[2018-09-23] MEDS: PROTONIX IV SCH (11:44)
[2018-09-23] MEDS ORDERED: NS 1,000 ML IV SCH (11:45)
--- NOTE | 2018-09-23 13:08 | PROGRESS NOTE ---
DATE: 09/23/2018 SUBJECTIVE: Today Mr. Singh refers to be feeling a little better. He is still remarkably drowsy and on a Venturi mask. OBJECTIVE: Vital signs: Blood pressure is 133/83, pulse of 92, respiration is 36, temperature 97.9 degrees. Patient is saturating 99% on Venturi mask. General: Mr. Singh is a 61-year-old elderly male. He is in bed on a Venturi mask. HEENT: Mucosa is pink and moist. Anicteric. Acyanotic. Neck: Supple. Chest: Air entry is bilaterally reduced. There is a prolonged expiratory phase of respiration. There is also rhonchi bilaterally in both lung bates. Cardiovascular: Regular rate and rhythm. Abdomen: Soft. Extremities: No pedal edema. Central nervous system: Patient is drowsy. Will open his eyes to command but he remains nonverbal. He will move all extremities, however. LABORATORY DATA: WBC is 21.19, hemoglobin is 11.2, platelet count of 456,000. Chemistry is also reviewed. Creatinine is down to 2.7. CURRENT MEDICATIONS: Have all been reviewed. ASSESSMENT: 1. Acute hypoxemic respiratory failure. 2. Acute on chronic hypercarbic respiratory failure. 3. Chronic alcoholism. 4. History of seizure disorder. 5. Atrial fibrillation with rapid ventricular response. Currently rate controlled. 6. Acute renal failure. Creatinine is up to 2.7. Nephrology is on board. The patient is making adequate urine output. 7. Nutritional needs. We are going to start the patient on tube feedings. I will consult dietitian. cc: Bruce Reed MD
[2018-09-23] MEDS: THIAMINE 100 MG in NS 50 ML IV SCH (13:16)
[2018-09-23] MEDS: CARDIZEM PO SCH ×2 (13:16→19:30)
--- NOTE | 2018-09-23 17:33 | NEPHROLOGY PROGRESS NOTE ---
DATE: 09/23/2018 SUBJECTIVE: He is more alert. He attempts to verbalize, but his speech is incomprehensible. Does follow simple commands. OBJECTIVE: Vital Signs: Blood pressure 133/83, heart rate 92, respirations 36, afebrile. General: No acute distress. Skin: Warm and dry. Oropharynx is dry. Neck: Veins flat. Heart: Regular. No gallops. Lungs: Equal with scattered rhonchi. Abdomen: Soft, nontender. Bowel sounds present. Extremities: No edema, clubbing or cyanosis. IMPRESSION/PLAN: Acute kidney injury. Kidney function improving over the last 48 hours. Good urine output. He appears somewhat dry by exam today. His last chest x-ray was performed this morning, which does not mention pulmonary edema. I may increase his IV fluids. No other changes. cc: Hernando Fleming MD
[2018-09-24] MEDS: AZACTAM 1 GM in NS 50 ML IV SCH ×4 (03:00→17:59)
[2018-09-24] MEDS: CARDIZEM PO SCH ×4 (03:00→21:02)
[2018-09-24] MEDS: DUONEB (A & A) INH PRN ×5 (03:06→23:30)
[2018-09-24] MEDS: SOLU-MEDROL IV SCH ×5 (04:58→21:02)
[2018-09-24 05:23] LABS: ALLEN TEST YES; BE 4.5 mmoll (-3.0-3.0); BLOOD TYPE ARTERIAL; HCO3-(ACT) 28.4 mmoll (20.0-26.0); PCO2(98.6) 49 mmHg (35-45); PO2(98.6) 83 mmHg (60-100); SAMPLE BLOOD
[2018-09-24 05:26] LABS: MODALITY VENTIMASK
[2018-09-24 06:29] LABS: BASO# 0.01 X1000 (0.0-0.2); HEMATOCRIT 34.1 % (42.0-52.0); HEMOGLOBIN 11.1 g/dL (14.0-18.0); IMM GRAN# 0.07 X1000 (0.0-0.04); IMM GRAN% 0.3 % (0.0-0.5); LYMPH# 0.58 X1000 (1.2-3.4); LYMPH% 2.5 % (20.5-51.1); MCH 28.2 PG (27-31); MCHC 32.6 g/dL (33-37); MCV 86.8 FL (81-99); MONO# 0.83 X1000 (0.11-0.59); MONO% 3.5 % (1.7-9.3); MPV 9.2 FL (7.4-10.4); NEUT# 22.05 X1000 (1.4-6.5); NEUT% 93.7 % (42.2-75.2); PLT 494 X1000 (130-400); RBC 3.93 XMIL (4.7-6.1); RDW 17.4 % (11.5-14.5); WBC 23.54 X1000 (4.8-10.8)
[2018-09-24 06:40] LABS: ALBUMIN 2.8 g/dL (3.5-5.0); CALCIUM 8.3 mg/dL (8.8-10.2); CREATININE 2.3 mg/dL (0.7-1.2); PHOSPHORUS 3.4 mg/dL (2.7-4.5); POTASSIUM 3.8 mmol/L (3.5-5.1)
--- NOTE | 2018-09-24 07:44 | Diag Imaging Result Doc PS360 ---
EXAM: CHEST-1 VIEW INDICATION: SOB TECHNIQUE: One view COMPARISON: 09/23/2018 FINDINGS: The NG tube is in stable position. Pulmonary venous congestion and interstitial edema is stable. There are stable bilateral small pleural effusions. No new consolidation is identified. Cardiac silhouette is stable. IMPRESSION: Stable chest. Electronically signed by Daniel Kelley 09/24/2018 7:42 AM
[2018-09-24] MEDS: CENTRUM TABLET NG SCH (08:10)
[2018-09-24] MEDS: NICODERM PATCH TD SCH (08:10)
[2018-09-24] MEDS: ATIVAN IV PRN ×3 (08:24→19:07)
[2018-09-24] MEDS: NS 1,000 ML IV SCH ×2 (09:58→21:03)
[2018-09-24] MEDS ORDERED: LANOXIN IV ONE ×3 (10:12→18:15)
[2018-09-24] MEDS: SODIUM CHLORIDE 0.9% INJ SCH (10:25)
[2018-09-24] MEDS: CEREBYX 200 MG in NS 50 ML IV SCH ×2 (10:25→23:00)
[2018-09-24] MEDS: PROTONIX IV SCH (10:25)
[2018-09-24] MEDS: NITROGLYCERIN TOP SCH ×3 (10:39→17:59)
[2018-09-24] MEDS: FOLIC ACID 1 MG in NS 50 ML IV SCH (11:09)
[2018-09-24] MEDS: ZYVOX 600 MG/D5W 600 MG/300 ML IVPB IV SCH (11:14)
--- NOTE | 2018-09-24 11:21 | CARDIOLOGY PROGRESS NOTE ---
DATE: 09/24/2018 CHIEF COMPLAINT: Irregular heartbeat. SUBJECTIVE: The patient is uncomfortable. He says that he is hurting all over. His heart rate has jumped to 130 and 160 beats per minute. He is in atrial flutter with rapid response. OBJECTIVE: Blood pressure is 136/97, temperature 99.2. The blood pressure just jumped to 194/90. He is uncomfortable. He has a Ventimask on his face and an NG tube. Chest: Diminished breath sounds diffusely. Heart sounds are rapid "regular." Abdomen: Soft. Extremities showed no edema. He is on special pressure relief boots. Neurologic: Again, he is uncomfortable. He answers appropriately. He wiggles his extremities. DIAGNOSTIC DATA: His white count has increased from 13,000 three days ago to 23,000 now. His BUN has been 25 about 3 days ago and now is 39. His creatinine 3.5 three days ago now is 2.3. His troponin levels have been checked twice a couple of days ago, or 3 times, 09/22/2018 through 09/23/2018, and they are negative. I do not know why they keep on checking troponins. Chest x-ray done today shows "stable chest" with pulmonary venous congestion, interstitial edema. IMPRESSION: 1. The patient is with atrial flutter and rapid response. This appears to be paroxysmal. 2. The patient is in somatic pain. 3. The patient has abnormal chest x-ray suggesting pulmonary infiltrates, probably pneumonia. Possible congestive heart failure/diastolic dysfunction. During this admission, he has had several electrocardiograms, and one echocardiogram that was done on 09/13/2017 showed normal ejection fraction while he was in atrial fibrillation or flutter. 4. Chronic kidney disease+ acute component? RECOMMENDATIONS: At this point, we will increase his Cardizem to 60 every 6 hours. I will give him a few doses of digoxin. Pain management needs to be offered. I will give him some nitroglycerin paste 3 times a day to control his blood pressure. Special Education Resource Room Teacher and critical care physician and primary service need to make their minds as far as how to handle his fluids because if the chest x-ray shows congestion, it would not be reasonable to be giving him IV fluids. We will follow him and when Dr. Santiago returns from vacation, he will continue to follow him. cc: Lyle Sanchez MD [facility]
[2018-09-24] MEDS: THIAMINE 100 MG in NS 50 ML IV SCH (12:09)
--- NOTE | 2018-09-24 14:59 | PROGRESS NOTE ---
DATE: 09/24/2018 SUBJECTIVE: Patient resting in bed. He is very lethargic and difficult to arouse. OBJECTIVE: Vital signs: Temperature is 97.3 degrees, pulse 137, respiratory rate 20, blood pressure is 116/95, oxygen saturation is 98%. HEENT: Atraumatic, normocephalic. Cardiovascular system: S1, S2. Respiratory system: Has evidence of good air entry bilaterally. Abdomen: Soft, nontender. No masses felt. Extremities: No evidence of edema. Central nervous system: The patient is lethargic. LABS: WBC is 23.54, hematocrit is 34.1, with a platelet count of 494,000. ABG 7.4/49/83. Chemistry: Sodium is 144, potassium is 2.8, chloride is 104, bicarb 28, BUN is 39, creatinine is 2.3. X-ray of the chest shows pulmonary vascular congestion and interstitial edema. ASSESSMENT AND PLAN: 1. Acute respiratory failure secondary to chronic obstructive pulmonary disease. Continue supplemental oxygen. Maintain patient on nebulized bronchodilators, steroids, as well as antibiotics. Today's chest x-ray shows evidence of pulmonary edema. The patient will need to be on diuretics. 2. Alcoholism. Continue patient on delirium tremens prophylaxis. Maintain patient on thiamine, folic acid, as well as multivitamin. 3. Seizure disorder. Maintain patient on seizure precaution. Continue antiepileptic drugs. 4. Acute kidney injury. Maintain patient on intravenous fluids. Follow up on renal function. 5. Atrial fibrillation with rapid ventricular rate. Continue rate controlling agent. Cardiology following. 6. Deep vein thrombosis prophylaxis. SCD. 7. Gastrointestinal prophylaxis. PPI. cc: John Thornton MD
[2018-09-24] MEDS: LOPRESSOR 10 MG in NS 50 ML IV SCH (18:28)
[2018-09-25] MEDS: NS 1,000 ML IV SCH ×2 (00:52→10:30)
[2018-09-25] MEDS: LOPRESSOR 10 MG in NS 50 ML IV SCH ×6 (00:53→23:53)
[2018-09-25] MEDS: ZYVOX 600 MG/D5W 600 MG/300 ML IVPB IV SCH ×3 (00:54→23:53)
[2018-09-25] MEDS: CARDIZEM PO SCH ×4 (01:00→19:34)
[2018-09-25] MEDS: AZACTAM 1 GM in NS 50 ML IV SCH ×4 (01:01→18:26)
[2018-09-25] MEDS: NITROGLYCERIN TOP SCH ×4 (01:01→18:26)
[2018-09-25] MEDS: DUONEB (A & A) INH PRN ×3 (02:54→23:36)
[2018-09-25 04:45] LABS: ALLEN TEST YES; BE 4.5 mmoll (-3.0-3.0); BLOOD TYPE ARTERIAL; HCO3-(ACT) 28.4 mmoll (20.0-26.0); METHB 1.2 % (0.0-1.5); O2(CT) 14.4 mL/dL (15.0-23.0); O2HB 96.2 % (95.0-99.0); PCO2(98.6) 43 mmHg (35-45); PO2(98.6) 112 mmHg (60-100); SAMPLE BLOOD; SAO2 99.4 % (95.0-100.0); THB 10.5 g/dL (11.5-17.4); pH(98.6) 7.44 (7.35-7.45)
[2018-09-25 04:47] LABS: MODALITY VENTIMASK
[2018-09-25] MEDS: SOLU-MEDROL IV SCH ×4 (04:51→21:30)
[2018-09-25 06:29] LABS: BASO# 0.01 X1000 (0.0-0.2); HEMATOCRIT 35.3 % (42.0-52.0); HEMOGLOBIN 11.2 g/dL (14.0-18.0); IMM GRAN% 0.5 % (0.0-0.5); LYMPH# 0.58 X1000 (1.2-3.4); LYMPH% 2.7 % (20.5-51.1); MCH 27.8 PG (27-31); MCHC 31.7 g/dL (33-37); MCV 87.6 FL (81-99); MONO# 0.98 X1000 (0.11-0.59); MONO% 4.6 % (1.7-9.3); NEUT# 19.54 X1000 (1.4-6.5); NEUT% 92.2 % (42.2-75.2); PLT 518 X1000 (130-400); RBC 4.03 XMIL (4.7-6.1); RDW 17.6 % (11.5-14.5); WBC 21.21 X1000 (4.8-10.8)
[2018-09-25 07:01] LABS: ALBUMIN 2.6 g/dL (3.5-5.0); CALCIUM 8.1 mg/dL (8.8-10.2); CREATININE 1.9 mg/dL (0.7-1.2); PHOSPHORUS 3.2 mg/dL (2.7-4.5)
--- NOTE | 2018-09-25 07:22 | Diag Imaging Result Doc PS360 ---
EXAM: CHEST-1 VIEW INDICATION: SOB TECHNIQUE: One view COMPARISON: 09/24/2018 FINDINGS: The NG tube is in stable position. Pulmonary edema and bilateral effusions are stable. No new consolidation is identified. Cardiac silhouette is stable. IMPRESSION: Stable chest. Electronically signed by Daniel Kelley 09/25/2018 7:20 AM
--- NOTE | 2018-09-25 07:24 | EKG Report ---
Test Performed on : 09/25/2018 06:39:03 AM Test Reason : atrial flutter Blood Pressure : / mmHG Vent. Rate : 139 BPM Atrial Rate : 139 BPM P-R Int : 210 ms QRS Dur : 098 ms QT Int : 376 ms P-R-T Axes : 069 024 -70 degrees QTc Int : 572 ms Sinus tachycardia. with 1st degree AV block. Marked ST abnormality, possible septal subendocardial injury Abnormal ECG When compared with ECG of 24-SEP-2018 10:01, (Unconfirmed) Sinus rhythm. has replaced Atrial flutter. ST less depressed in Inferior leads Confirmed by Soumya SANDRA, Benny Sargent ([id number]) on 09/26/2018 10:01:02 AM
[2018-09-25] MEDS: STERILE WATER INJ. INJ PRN (08:42)
[2018-09-25] MEDS: CENTRUM TABLET NG SCH (08:42)
[2018-09-25] MEDS: ATIVAN IV PRN ×4 (08:42→23:53)
[2018-09-25] MEDS: GEODON IM PRN ×2 (08:42→19:35)
--- NOTE | 2018-09-25 09:26 | EKG Report ---
Test Performed on : 09/24/2018 10:01:09 AM Test Reason : atrial flutter Blood Pressure : / mmHG Vent. Rate : 139 BPM Atrial Rate : 278 BPM P-R Int : 000 ms QRS Dur : 084 ms QT Int : 360 ms P-R-T Axes : 263 -11 -86 degrees QTc Int : 547 ms Atrial flutter. with 2:[address] abnormality, possible inferior subendocardial injury Abnormal ECG When compared with ECG of 15-SEP-2018 19:10, Atrial flutter. has replaced Sinus rhythm. Questionable change in QRS axis ST more depressed in Inferior leads T wave inversion more evident in Inferior leads Confirmed by Soumya SANDRA, Benny Sargent ([id number]) on 09/26/2018 10:00:28 AM
--- NOTE | 2018-09-25 09:38 | PROGRESS NOTE ---
DATE: 09/25/2018 SUBJECTIVE: Mr. Singh has not had clinical seizure recognized over the weekend. reports gradual recovery of consciousness. His levetiracetam level last week was elevated at 94. Lacosamide was not elevated at 4.2. He has continued fosphenytoin 200 mg q.12 hours, Lorazepam 1 mg 4 doses in the last 24 hours. He received ziprasidone 10 mg this morning, but I think that may have been after my visit. OBJECTIVE: On exam, he is awake, alert, attentive. He had some conversation with me. He asked questions spontaneously. He reports wanting to go home and "I am going to quit this place." He was moving all limbs. He followed simple commands consistently. Limb tone is symmetric. Extraocular movements are full. Facial motility is symmetric. Neck is supple without meningismus. IMPRESSION: Global encephalopathy, much improved. I do not think we need anything urgently from neurologic standpoint today. Discussed with possibility that we might eventually repeat imaging and repeat EEG. I would continue phenytoin at current dose for now and follow level. Renal function is improved and if we need to add a second seizure medication, we might resume levetiracetam at lower dose. Thanks for asking Neurology to see Mr. Singh. cc: Anel Sweeney III, MD
[2018-09-25] MEDS: PROTONIX IV SCH (10:20)
[2018-09-25] MEDS: CEREBYX 200 MG in NS 50 ML IV SCH ×2 (10:20→23:52)
[2018-09-25] MEDS: FOLIC ACID 1 MG in NS 50 ML IV SCH (11:14)
--- NOTE | 2018-09-25 11:18 | PROGRESS NOTE ---
DATE: 09/25/2018 SUBJECTIVE: The patient is resting in bed. The patient is very lethargic and difficult to arouse. OBJECTIVE: Vital signs: Temperature is 97.8 degrees, pulse is 140, respirations 20, blood pressure is 107/89, oxygen saturation is 100%. HEENT: Atraumatic, normocephalic. Cardiovascular: S1, S2. Respiratory system: Has evidence of good air entry bilaterally. Abdomen: Soft, nontender. No masses felt. Extremities: No evidence of edema. Central nervous system: No obvious focal deficit noted. LABORATORY DATA: WBC is 21.21, hematocrit is 35.3 with a platelet count of 518,000. ABG 7.44/43/112/ 99.4%. Chemistry: Sodium is 145, potassium 4.0, chloride is 106, bicarb 27, BUN is 43, creatinine is 1.9. Culture: Urine culture is no growth. Blood culture is no growth. X-ray of the chest shows evidence of pulmonary edema as well as bilateral effusions. ASSESSMENT AND PLAN: 1. Acute respiratory failure secondary to chronic obstructive pulmonary disease. Maintain patient on supplemental oxygen. With regard to see chronic obstructive pulmonary disease will continue with nebulized bronchodilators, steroids as well as antibiotics. X- ray chest did show evidence of pulmonary edema. The patient will likely benefit from diuretics. 2. Alcoholism. Continue patient on delirium tremens prophylaxis. Maintain him on thiamine and folic acid, as well as multivitamin. 3. Seizure disorder. Continue seizure precaution as well as antiepileptic drugs. 4. Acute kidney injury. Continue intravenous fluids. Follow up on renal function. 5. Atrial fibrillation. Continue rate controlling agent. Cardiology following. 6. Deep vein thrombosis prophylaxis. Sequential compression devices. 7. Gastrointestinal prophylaxis. Proton pump inhibitor . cc: John Thornton MD [facility]
[2018-09-25] MEDS: THIAMINE 100 MG in NS 50 ML IV SCH (13:04)
[2018-09-25] MEDS: DILAUDID IV PRN ×2 (13:39→18:27)
--- NOTE | 2018-09-25 14:26 | NEPHROLOGY PROGRESS NOTE ---
DATE: 09/25/2018 TIME SEEN: 0630. SUBJECTIVE: Mr. Singh is resting quietly in bed. Head of the bed is slightly elevated. He is on 40% Ventimask. He is moaning aloud with no specific complaints. OBJECTIVE: Most Recent Vital Signs: Temperature 97.8 degrees, blood pressure 107/89, heart rate 138, respirations 22. He is on 40% Ventimask. His last recorded saturation 100%. He has had 2355 in, 1500 out to Angela catheter. Most Recent Labs: Sodium 145, potassium 4, chloride is 106, CO2 27, BUN 43, creatinine is 1.9, glucose is 167, the patient's anion gap is 12, his calcium is 8.1, phosphorus 3.2, albumin is 2.6. White count 21.12, hemoglobin 11.2, hematocrit 35.3, with a platelet count of 518,000. ABGs, pH 7.44, CO2 43, PO2 112, bicarb 28.4, with a lactate of 1.6 on 40% Ventimask. Physical Examination: General: This is a 63-year-old, white male. He is resting quietly in bed. He is in no acute distress, though he is moaning aloud. His skin is warm and dry. HEENT: Normocephalic, atraumatic. Conjunctivae are pale. He has NILSA. Mucous membranes are dry. Neck: Supple. Trachea midline. No evidence of JVD. Cardiovascular: He is regular rate and rhythm. He is tachycardic on the monitor. S4 is present. Lungs: Have coarse breath sounds bilaterally. Equal excursion on O2. Abdomen: Soft, nontender. Positive bowel sounds. Genitourinary: Angela catheter is in place with adequate urine out. Extremities: Have 1+ lower extremity edema. Left knee has a brace in place. Neurological: He is alert and oriented to person and to place. ASSESSMENT AND PLAN: 1. Acute kidney injury. Kidney function continues to improve over the last 48- 72 hours. He has good urine output. The patient continues with intravenous fluids of normal saline infusing at 75 mL an hour. 2. Electrolytes and acid-base balance. These are acceptable. 3. Anemia. This is close to target. 4. Previous seizures, followed by Dr. Sweeney and the primary care. 5. Acute respiratory failure with obstructive chronic obstructive pulmonary disease. The patient remains on renal dosed antibiotics. I would like to thank you for allowing us to follow with this patient. Dictated by KRZYSZTOF Zuleta for Hernando Fleming MD Face to face encounter, data reviewed, discussed with Fredy Mcclain on 09/25/18. I agree with the above assessment and plan of care. cc: KRZYSZTOF Zuleta MD [facility]
[2018-09-25] MEDS ORDERED: PROTONIX PO SCH (15:04)
[2018-09-25] MEDS: SODIUM CHLORIDE 0.9% INJ SCH (16:27)
[2018-09-25] MEDS: PEPCID IV SCH (16:27)
[2018-09-26] MEDS: NS 1,000 ML IV SCH ×3 (00:05→16:53)
[2018-09-26] MEDS: DILAUDID IV PRN ×4 (00:36→21:10)
[2018-09-26] MEDS: AZACTAM 1 GM in NS 50 ML IV SCH ×3 (02:23→17:48)
[2018-09-26] MEDS: NITROGLYCERIN TOP SCH ×3 (02:23→17:48)
[2018-09-26] MEDS: CARDIZEM PO SCH ×2 (02:23→08:23)
[2018-09-26] MEDS: DUONEB (A & A) INH PRN ×3 (03:11→23:30)
[2018-09-26] MEDS: SODIUM CHLORIDE 0.9% INJ SCH ×2 (04:06→15:08)
[2018-09-26] MEDS: PEPCID IV SCH ×2 (04:06→15:07)
[2018-09-26] MEDS: SOLU-MEDROL IV SCH ×4 (04:06→22:31)
[2018-09-26 04:38] LABS: ALLEN TEST YES; BE 4.8 mmoll (-3.0-3.0); BLOOD TYPE ARTERIAL; HCO3-(ACT) 28.6 mmoll (20.0-26.0); METHB 1.5 % (0.0-1.5); O2HB 94.3 % (95.0-99.0); PCO2(98.6) 45 mmHg (35-45); PO2(98.6) 82 mmHg (60-100); SAMPLE BLOOD; SAO2 97.7 % (95.0-100.0); THB 14.3 g/dL (11.5-17.4); pH(98.6) 7.43 (7.35-7.45)
[2018-09-26 04:39] LABS: MODALITY CANNULA
[2018-09-26] MEDS: LOPRESSOR 10 MG in NS 50 ML IV SCH ×2 (05:39→12:01)
[2018-09-26 05:45] LABS: CALCIUM 7.8 mg/dL (8.8-10.2); CREATININE 1.4 mg/dL (0.7-1.2); POTASSIUM 3.7 mmol/L (3.5-5.1)
[2018-09-26 05:50] LABS: BASO# 0.01 X1000 (0.0-0.2); BASO% 0.1 % (0.0-0.8); HEMATOCRIT 38.4 % (42.0-52.0); HEMOGLOBIN 12.3 g/dL (14.0-18.0); IMM GRAN# 0.11 X1000 (0.0-0.04); IMM GRAN% 0.6 % (0.0-0.5); LYMPH# 0.55 X1000 (1.2-3.4); MCH 27.9 PG (27-31); MCV 87.1 FL (81-99); MONO# 0.75 X1000 (0.11-0.59); MONO% 4.1 % (1.7-9.3); MPV 9.2 FL (7.4-10.4); NEUT# 16.66 X1000 (1.4-6.5); NEUT% 92.2 % (42.2-75.2); PLT 468 X1000 (130-400); RBC 4.41 XMIL (4.7-6.1); RDW 17.2 % (11.5-14.5); WBC 18.08 X1000 (4.8-10.8)
[2018-09-26] MEDS: ATIVAN IV PRN ×2 (06:10→15:05)
[2018-09-26 06:37] LABS: LYMPHS 4 % (21-51); MONO 3 % (1-9); SEGS 93 % (42-75)
--- NOTE | 2018-09-26 07:36 | Diag Imaging Result Doc PS360 ---
CHEST-1 VIEW - 09/26/2018 INDICATION: SOB COMPARISON: 09/25/2018 FINDINGS: Stable nasogastric tube in good position in the stomach. Stable extensive bilateral interstitial infiltrates most suggestive of pulmonary edema. Stable trace bilateral pleural effusions. Heart size remains top normal. No new infiltrates. IMPRESSION: No change from prior. Electronically signed by Jose Alberto Brown 09/26/2018 7:34 AM
[2018-09-26] MEDS: CENTRUM TABLET NG SCH (08:23)
[2018-09-26] MEDS ORDERED: LANOXIN IV ONE ×2 (09:41→11:45)
[2018-09-26 10:26] LABS: INR 0.97; PROTIME 13.6 Seconds (11.0-16.0)
[2018-09-26] MEDS: CEREBYX 200 MG in NS 50 ML IV SCH ×2 (10:54→23:01)
[2018-09-26] MEDS: FOLIC ACID 1 MG in NS 50 ML IV SCH (12:00)
[2018-09-26] MEDS: ZYVOX 600 MG/D5W 600 MG/300 ML IVPB IV SCH (12:01)
--- NOTE | 2018-09-26 12:09 | PROGRESS NOTE ---
DATE: 09/26/2018 Mr. Singh has not had clinically recognized seizure. He had some of his p.r.n. medications overnight. This morning, he seemed to be sleeping as I approached the bedside. With very modest stimulation, he was awake, briefly alert. He was a little bit slow to follow commands. He did eventually hold up fingers to command. His speech is very dysarthric today. He moved each arm. There was full lateral eye movement. Neck is supple. IMPRESSION: Global encephalopathy, much improved compared to several days ago, but no significant change since yesterday. No clinical seizure recognized. I would continue current phenytoin dose and follow clinically. 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 Thanks for asking neurology to see Mr. Singh. cc: Anel Sweeney III, MD MTDD
[2018-09-26] MEDS ORDERED: CARDIZEM IV ONE (13:07)
[2018-09-26] MEDS ORDERED: CARDIZEM 100 MG/NS 100 MG/100 ML IVPB IV SCH (13:15)
[2018-09-26] MEDS: THIAMINE 100 MG in NS 50 ML IV SCH (13:23)
[2018-09-26] MEDS: LIBRIUM PO SCH ×2 (13:24→17:49)
--- NOTE | 2018-09-26 13:28 | Diag Imaging Result Doc PS360 ---
ELBOW COMPLETE LEFT - 09/26/2018 INDICATION: elbow pain sweling. TECHNIQUE: Three views COMPARISON: 08/31/2011 FINDINGS: There is nonspecific soft tissue swelling about the elbow and forearm. Stable degenerative spurring at the olecranon process. Bones are intact and normally aligned. Joint spaces are clear. IMPRESSION: Nonspecific elbow and forearm soft tissue swelling. Electronically signed by Jose Alberto Brown 09/26/2018 1:26 PM
--- NOTE | 2018-09-26 13:28 | Diag Imaging Result Doc PS360 ---
WRIST COMPLETE LEFT - 09/26/2018 INDICATION: Wrist pain and swelling with bruising. TECHNIQUE: Three views COMPARISON: 08/31/2011 FINDINGS: Bones are intact and normally aligned. Joint spaces are clear. There is nonspecific hand soft tissue swelling. IMPRESSION: Nonspecific hand soft tissue swelling. Electronically signed by Jose Alberto Brown 09/26/2018 1:25 PM
[2018-09-26] MEDS ORDERED: NS 250 ML ONE (13:30)
--- NOTE | 2018-09-26 13:30 | PROGRESS NOTE ---
DATE: 09/26/2018 SUBJECTIVE: This morning Mr. Singh refers to be doing okay. He was still kind of drowsy. He has not had any clinical seizures since admission. OBJECTIVE: Vital signs: Blood pressure is 123/92, pulse of 148, respirations temperature is 97.2 degrees. General: Mr. Singh is a 63-year-old gentleman. He is in bed. He does not seem to be in any distress. Mucosa is pink and moist. Anicteric. Acyanotic. Neck: Supple. Chest: Good air entry bilateral. There was no crepitations, no rhonchi. Cardiovascular: Regular rate and rhythm. Abdomen: Soft. Bowel sounds present. Extremities: No pedal edema. The left foot feels relatively a little colder than the right and the pedis tibialis pulse was almost imperceptible, but there was good posterior tibialis. The right side is unremarkable. The left upper extremity is also remarkably more swollen than the right. 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 LABORATORY DATA: WBC is 18.08, hemoglobin is 12.3, platelet count of 468,000, chemistry is also reviewed and is unremarkable. ASSESSMENT: 1. Acute hypoxemic respiratory failure and acute on chronic hypercarbic respiratory failure secondary to chronic obstructive pulmonary disease exacerbation improving. 2. Altered mental status. The patient has a history of alcohol abuse in the past. I am not sure if this is all kind of related with some form of withdrawal. His toxicology on presentation was also positive for opioids, oxycodone, tricyclic and benzos, and I am not sure if he is withdrawing from any of these. We are going to start him on Librium. He is already getting p.r.n. Ativan and we will also add gabapentin for possible alcohol withdrawal. The patient is being seen by Neurology. 3. History of seizures. No clinical seizures in the hospital. 4. Acute renal failure. The patient the patient is on gentle IV fluids. Creatinine is downward going. 5. Atrial fibrillation with rapid ventricular response. We will continue with the rate control agents. Cardiology is on board. Unsure if this is all related to the substance (alcohol and prescription drugs). 6. Left upper extremity swelling. We will get a Doppler ultrasound to rule out any underlying DVT. cc: Bruce Reed MD
--- NOTE | 2018-09-26 13:51 | NEPHROLOGY PROGRESS NOTE ---
DATE: 09/26/2018 TIME SEEN: 0600 SUBJECTIVE: Mr. Singh is sitting up in bed. He is currently on a 2 L nasal cannula. He is unable to follow commands. OBJECTIVE: His most recent vital signs: The patient's last temperature 97.7 degrees blood pressure 129/87 heart rate 144, respirations are 14, he is on 2 L nasal cannula, last recorded saturation 96%. Intake and Output: He has had 4700 in. He has had 3465 out with total Angela and NG. DIAGNOSTIC STUDIES: Sodium is 144, potassium 3.7, chloride 104, CO2 of 28, BUN 44, creatinine 1.4, glucose is 199, anion gap of 12, calcium 7.8. White count 18.08, hemoglobin 12.3, hematocrit 38.4, with a platelet count of 468,000. ABGs pH 7.43, CO2 of 45, PO2 of 82, bicarbonate 28.6, with a lactate of 1.7 on 2 L nasal cannula. PHYSICAL EXAMINATION: General: This is a 63-year-old male, who is currently resting in bed. He appears older than his stated age. He is in no acute distress. His skin is warm and dry. HEENT: Normocephalic, atraumatic. Conjunctiva is pale. He has NILSA. Mucous membranes dry. Neck: Supple. Trachea midline. No evidence of JVD. Cardiovascular: Regular rate and rhythm. He is tachycardic this a.m. Heart rate is in the 140s. Lungs have coarse breath sounds bilaterally. Equal excursion on O2. Abdomen is soft, nontender. Positive bowel sounds. Genitourinary: Not inspected. Angela catheter is in place. Adequate urine out documented. Extremities have 1+ lower extremity edema. He does have 1+ to the left right upper extremity. He has a brace to the left knee and upper thigh. Neurological: Again alert to person. ASSESSMENT AND PLAN: Acute kidney injury. Kidney function continues to improve. BUN of 44 with a creatinine of 1.4. Adequate urine output continues. He has IV fluids continuing at 75 mL an hour. No indications for intervention. Secondary to these findings with electrolytes and acid-base balance being stable, we will sign off at this time and remain available if needed during his hospitalization. I would like to thank you for allowing us to follow with this patient. Dictated by KRZYSZTOF Zuleta Gladish, MD Face to face encounter, data reviewed, discussed with Fredy Mcclain on 09/26/18. I agree with the above assessment and plan of care. cc: KRZYSZTOF Zuleta MD [facility]
[2018-09-26] MEDS: STERILE WATER INJ. INJ PRN (15:16)
[2018-09-26] MEDS: GEODON IM PRN (15:17)
--- NOTE | 2018-09-26 15:26 | ORTHOPAEDICS CONSULTATION ---
DATE: 09/26/2018 CHIEF COMPLAINT: Left knee pain. HISTORY OF PRESENT ILLNESS: This is a 63-year-old male who is currently in the ICU and was admitted for a COPD exacerbation with alcoholic dementia. He is currently under hospice care for COPD. He came to the emergency department after having a seizure recently, on 09/12/2018. There were x-rays performed of his left knee which showed a left patella fracture with separation. According to old charts, the patient reported a fall 3 days prior to his emergency department visit and that is when he injured the knee. When the patient came to the emergency department, he was awake and alert, but he is not at this time. PAST MEDICAL HISTORY: 1. Elevated PSA. 2. COPD, currently on hospice. 3. Seizure disorder. 4. Hepatitis C. 5. Bipolar disorder. 6. PTSD. 7. Patella fracture. PAST SURGICAL HISTORY: He has had some type of left knee surgery. SOCIAL HISTORY: He lives at home with . He drinks at least about 8 beers a day. He smokes about a half pack a day. ALLERGIES: He is allergic to penicillin. HOME MEDICATIONS: We will need a list to review these. REVIEW OF SYSTEMS: Unable to obtain more information from the patient at this time because he is incoherent. PHYSICAL EXAMINATION: General: The patient is asleep and lying in the bed, in no distress. Vital Signs: Pulse rate 148, respiratory rate 28, blood pressure 118/86, oxygen saturation is 95% on 2 L. HEENT: Head is normocephalic, atraumatic. Mucous membranes are dry. Neck: Supple. Trachea midline. Cardiovascular: There is some tachycardia. Pulmonary: There is equal chest expansion, rise and fall. Abdomen: Soft, nontender. Neurologic: The patient is asleep. He has garbled speech. He does squeeze my hand upon command. LABS: White blood cells 18.08, hemoglobin 12.3, hematocrit 38.4, platelets 468,000. INR 0.97. Sodium 144, potassium 3.7, chloride 104, BUN 44, creatinine 1.4, glucose 199, calcium 7.8. Urine is positive for a UTI. X-RAYS: Left knee x-ray shows displaced separation patella fracture of the left knee. ASSESSMENT: Left patella fracture with wrist swelling and elbow swelling on the left side as well. PLAN: We will plan on obtaining x-rays of the left elbow and left wrist. He will eventually need an ORIF of the left patella when he is medically stable. We will monitor him while he is in the hospital and keep him in a knee immobilizer currently for his patellar fracture. We will check back on his x-rays later. Dictated by KRZYSZTOF Joe for Daniel Florez MD cc: KRZYSZTOF Joe MD
--- NOTE | 2018-09-26 16:30 | Diag Imaging Result Doc PS360 ---
EXAM: CHEST-PORTABLE INDICATION: PICC line placement confirmation TECHNIQUE: One view COMPARISON: 09/26/2018 FINDINGS: There is a newly placed PICC line with the tip projecting over the lower SVC in the expected position. The NG tube is stable. Otherwise, the chest is grossly unchanged. IMPRESSION: Interval placement of right PICC line in the expected position as described. Electronically signed by Daniel Kelley 09/26/2018 4:28 PM
[2018-09-26] MEDS: CARDIZEM 125/NS 125 MG/125 ML IVPB IV SCH ×2 (16:53→22:58)
[2018-09-26] MEDS: NEURONTIN PO SCH (21:10)
[2018-09-27] MEDS: ZYVOX 600 MG/D5W 600 MG/300 ML IVPB IV SCH ×3 (00:28→23:10)
[2018-09-27] MEDS: ATIVAN IV PRN ×4 (00:29→19:48)
[2018-09-27] MEDS: GEODON IM PRN (02:05)
[2018-09-27] MEDS: STERILE WATER INJ. INJ PRN (02:11)
[2018-09-27] MEDS: NITROGLYCERIN TOP SCH ×2 (02:53→11:37)
[2018-09-27] MEDS: AZACTAM 1 GM in NS 50 ML IV SCH ×3 (02:53→18:18)
[2018-09-27] MEDS: SOLU-MEDROL IV SCH ×4 (04:29→20:06)
[2018-09-27] MEDS: DILAUDID IV PRN ×2 (04:30→11:35)
[2018-09-27] MEDS: PEPCID IV SCH ×2 (04:30→15:01)
[2018-09-27 04:58] LABS: ALLEN TEST YES; BE 5.2 mmoll (-3.0-3.0); BLOOD TYPE ARTERIAL; PCO2(98.6) 43 mmHg (35-45); PO2(98.6) 83 mmHg (60-100); SAMPLE BLOOD; pH(98.6) 7.45 (7.35-7.45)
[2018-09-27 04:59] LABS: MODALITY CANNULA
[2018-09-27 05:13] LABS: BASO# 0.01 X1000 (0.0-0.2); BASO% 0.1 % (0.0-0.8); EOS# 0.09 X1000 (0.0-0.7); EOS% 0.5 % (0.0-10.0); HEMATOCRIT 39.1 % (42.0-52.0); HEMOGLOBIN 12.5 g/dL (14.0-18.0); IMM GRAN# 0.12 X1000 (0.0-0.04); IMM GRAN% 0.6 % (0.0-0.5); LYMPH# 0.41 X1000 (1.2-3.4); LYMPH% 2.1 % (20.5-51.1); MCH 27.5 PG (27-31); MCV 85.9 FL (81-99); MONO# 0.77 X1000 (0.11-0.59); MONO% 3.9 % (1.7-9.3); MPV 9.3 FL (7.4-10.4); NEUT# 18.12 X1000 (1.4-6.5); NEUT% 92.8 % (42.2-75.2); PLT 365 X1000 (130-400); RBC 4.55 XMIL (4.7-6.1); WBC 19.52 X1000 (4.8-10.8)
[2018-09-27 05:27] LABS: AGAP 12; BUN 44 mg/dL (8-22); CHLORIDE 103 mmol/L (98-107); COSMO 302; CREATININE 1.2 mg/dL (0.7-1.2); GLUCOSE 229 mg/dL (70-104); POTASSIUM 3.3 mmol/L (3.5-5.1); SODIUM 142 mmol/L (136-145); TCO2 27 mmol/L (25-35)
[2018-09-27 05:28] LABS: CALCIUM 7.9 mg/dL (8.8-10.2); ESTIMATED GFR > 60
[2018-09-27] MEDS: NS 1,000 ML IV SCH ×2 (06:33→19:48)
[2018-09-27] MEDS: CARDIZEM 125/NS 125 MG/125 ML IVPB IV SCH ×2 (06:33→16:07)
--- NOTE | 2018-09-27 07:38 | Diag Imaging Result Doc PS360 ---
CHEST-1 VIEW - 09/27/2018 INDICATION: SOB COMPARISON: 09/26/2018 FINDINGS: Support lines and tubes are stable and in good position. Stable hazy infiltrates bilaterally. Stable small bilateral pleural effusions. Heart size remains top normal. Stable significant biapical pleural thickening. IMPRESSION: No change from prior. Electronically signed by Jose Alberto Brown 09/27/2018 7:35 AM
--- NOTE | 2018-09-27 08:27 | EKG Report ---
Test Performed on : 09/26/2018 9:47:00 PM Test Reason : ICU. NO EKG ORDER FOR MUSE Blood Pressure : / mmHG Vent. Rate : 150 BPM Atrial Rate : 150 BPM P-R Int : 136 ms QRS Dur : 174 ms QT Int : 312 ms P-R-T Axes : 262 -43 -87 degrees QTc Int : 492 ms Unusual P axis and short AL, probable junctional tachycardia. Left axis deviation Nonspecific intraventricular block Abnormal ECG When compared with ECG of 25-SEP-2018 06:39, Junctional rhythm. has replaced Sinus rhythm. Questionable change in QRS duration Confirmed by Soumya SANDRA, Benny Sargent ([id number]) on 10/03/2018 7:25:50 PM
[2018-09-27] MEDS: CENTRUM TABLET NG SCH (08:32)
[2018-09-27] MEDS: LIBRIUM PO SCH ×3 (08:33→18:19)
[2018-09-27] MEDS: NEURONTIN PO SCH ×2 (08:33→20:06)
[2018-09-27] MEDS: CEREBYX 200 MG in NS 50 ML IV SCH ×2 (11:36→22:27)
[2018-09-27] MEDS: THIAMINE 100 MG in NS 50 ML IV SCH (11:36)
[2018-09-27] MEDS: FOLIC ACID 1 MG in NS 50 ML IV SCH (11:36)
--- NOTE | 2018-09-27 11:50 | PROGRESS NOTE ---
DATE: 09/27/2018 SUBJECTIVE: This morning. Mr. Singh continues to be in the ICU, still lethargic, but will respond some to questioning. His pulse was extremely high up until this morning, but then since shift change, his pulse has normalized. OBJECTIVE: General: Mr. Singh is a 63-year-old male. He is in bed. He is not in any cardiopulmonary distress. Mucosa is pink and moist. Anicteric. Acyanotic. Neck: Supple. [place] vital signs: Blood pressure is 128/69. Pulse of about 80, respiration is 16, temperature is 97.4 degrees. Respiratory: Air entry is bilaterally reduced but no crepitations. No rhonchi. Cardiovascular: Regular rate and rhythm. No murmurs, no rubs, no gallops. Gastrointestinal: Abdomen is soft, nontender. Extremities: No pedal edema. Distal pulses seem to be present, feel stronger, more on the right than on the left. He feels stronger, more on the right than the left. The left lower extremity is in an orthopedic cast. Central nervous system: Patient is still kind of lethargic, but easily arousable. Will follow basic commands will respond. Knows where he. LABORATORY DATA: WBC is 19.52. Hemoglobin is 12.5, platelet count of 365,000. Chemistry is also reviewed, potassium is 3.2, creatinine has normalized to 1.2. IMAGING: Chest x-ray shows stable bilateral pleural effusions, stable apical pleural thickening. No change from prior. MEDICATIONS: Have also been reviewed. Patient is still on aztreonam, today is day 5 on that. Cardizem was started yesterday. Zyvox today is day 6. ASSESSMENT: 1. Acute hypoxemic and hypercarbic respiratory failure secondary to chronic obstructive pulmonary disease exacerbation. 2. Acute on chronic hypercarbia. 3. Altered mental status. The patient has been evaluated by Neurology. 4. History of multiple psychotropic medication use with urine toxicology positive for opioids, oxycodone, tricyclic and benzodiazepines. 5. History of seizures. No clinical seizures in the hospital. 6. Acute renal failure, improved with IV fluids. Creatinine has normalized. 7. Atrial fibrillation with rapid ventricular response. Currently rate controlled. The patient is in sinus at this point. He is also on Cardizem drip. 8. Left upper extremity swelling. Doppler ultrasound has not reported any deep vein thrombosis. It appears to be all fluid. 9. Left patellar fracture. Patient has been evaluated by Orthopedics. There is a plan for ORIF once patient is medically stable. cc: Bruce Reed MD MTDD
--- NOTE | 2018-09-27 12:20 | PROGRESS NOTE ---
DATE: 09/27/2018 Mr. Singh has been awake and alert, restless and agitated, sometimes uncooperative. There has not been any clear focal neurologic feature. Speech has been understandable at times. He is calm right now. He has not had clinically recognized seizure. Phenytoin level was 17 initially and 17 again when checked on current dose. I do not have any new thoughts or new suggestions from neurology standpoint today. I would continue phenytoin at current dose, follow clinically, hope to see some further neurologic recovery. Baseline cognitive impairment continues to be a negative factor regarding prognosis. Thanks for asking Neurology to see Mr. Singh. cc: Anel Sweeney III, MD MTDD
--- NOTE | 2018-09-27 13:09 | PROGRESS NOTE ---
DATE: 09/27/2018 SUBJECTIVE: The patient continues encephalopathic. He is sleeping when I arrive, but arouses to verbal, but seems confused. OBJECTIVE: Vital Signs: Blood pressure 128/69, heart rate 72 and regular with ECG monitor currently showing sinus rhythm. Oxygen saturation 97%. HEENT: Mucous membranes seem dry. Neck: There is no jugular venous distention. Chest: Clear to auscultation. Cardiac Exam: Reveals a regular rate and rhythm without appreciable murmur or gallop. Extremities: Without edema. LABORATORY DATA: Includes a white blood cell count of 19.52, hematocrit 39.1, hemoglobin 12.5, platelet count 365. Sodium 142, potassium 3.3, chloride 103, carbon dioxide 27, BUN 44 creatinine 1.2. IMPRESSION: 1. Paroxysmal atrial flutter with rapid ventricular rate. Patient currently in sinus rhythm. 2. Encephalopathy. 3. Recent seizure with history of seizure disorder. 4. Left patellar fracture. RECOMMENDATIONS: 1. Continue diltiazem orally at this point along with metoprolol. 2. May consider sotalol if continual problems with recurrent paroxysmal atrial flutter. cc: Chao Santiago MD
[2018-09-27] MEDS ORDERED: CARDIZEM PO SCH (14:00)
[2018-09-27] MEDS: CARDIZEM PO SCH ×2 (15:00→19:48)
[2018-09-27] MEDS: LOVENOX SUBQ SCH (15:01)
[2018-09-27] MEDS: LOPRESSOR PO SCH (20:06)
[2018-09-28] MEDS: AZACTAM 1 GM in NS 50 ML IV SCH ×3 (01:05→17:01)
[2018-09-28] MEDS: CARDIZEM PO SCH ×4 (02:15→20:08)
[2018-09-28] MEDS: ATIVAN IV PRN ×3 (02:36→17:00)
[2018-09-28] MEDS: CARDIZEM 125/NS 125 MG/125 ML IVPB IV SCH (03:02)
[2018-09-28] MEDS: SOLU-MEDROL IV SCH ×4 (03:21→20:07)
[2018-09-28] MEDS: PEPCID IV SCH ×2 (03:21→15:22)
[2018-09-28 05:17] LABS: ALLEN TEST YES; BE 7.6 mmoll (-3.0-3.0); BLOOD TYPE ARTERIAL; HCO3-(ACT) 30.8 mmoll (20.0-26.0); PCO2(98.6) 43 mmHg (35-45); PO2(98.6) 81 mmHg (60-100); SAMPLE BLOOD; pH(98.6) 7.48 (7.35-7.45)
[2018-09-28 05:18] LABS: MODALITY CANNULA
[2018-09-28 05:29] LABS: BASO# 0.01 X1000 (0.0-0.2); BASO% 0.1 % (0.0-0.8); HEMATOCRIT 33.9 % (42.0-52.0); HEMOGLOBIN 10.9 g/dL (14.0-18.0); IMM GRAN# 0.16 X1000 (0.0-0.04); IMM GRAN% 0.9 % (0.0-0.5); LYMPH# 0.62 X1000 (1.2-3.4); LYMPH% 3.4 % (20.5-51.1); MCH 27.5 PG (27-31); MCHC 32.2 g/dL (33-37); MCV 85.4 FL (81-99); MONO# 0.82 X1000 (0.11-0.59); MONO% 4.4 % (1.7-9.3); MPV 9.4 FL (7.4-10.4); NEUT# 16.89 X1000 (1.4-6.5); NEUT% 91.2 % (42.2-75.2); PLT 345 X1000 (130-400); RBC 3.97 XMIL (4.7-6.1); RDW 16.6 % (11.5-14.5)
[2018-09-28 05:52] LABS: MAGNESIUM 1.8 mg/dL (1.5-2.7); PHOSPHORUS 2.5 mg/dL (2.7-4.5)
[2018-09-28 05:55] LABS: AGAP 11; BUN 44 mg/dL (8-22); CALCIUM 7.7 mg/dL (8.8-10.2); CHLORIDE 107 mmol/L (98-107); COSMO 309; CREATININE 1.2 mg/dL (0.7-1.2); ESTIMATED GFR > 60; GLUCOSE 187 mg/dL (70-104); POTASSIUM 2.9 mmol/L (3.5-5.1); SODIUM 147 mmol/L (136-145); TCO2 29 mmol/L (25-35)
[2018-09-28] MEDS ORDERED: POTASSIUM PHOSPHATE 30 MEQ in NS 250 ML IV ONE (05:59)
[2018-09-28] MEDS ORDERED: MAGNESIUM SULFATE 2 GM/S.W.I. 2 GM/50 ML IVPB IV ONE (06:00)
[2018-09-28] MEDS: D5 1/2 NS + KCL 20 MEQ 1,000 ML IV SCH ×2 (06:06→23:06)
[2018-09-28 07:00] LABS: BANDS 2 % (0-1); LYMPHS 2 % (21-51); MONO 2 % (1-9); SEGS 94 % (42-75)
--- NOTE | 2018-09-28 07:13 | Diag Imaging Result Doc PS360 ---
EXAM: CHEST-1 VIEW 09/28/2018 HISTORY: SOB TECHNIQUE: AP portable at 0503 COMMENT: There is bilateral apical and right lateral pleural thickening versus loculated effusion. There is increased interstitial opacity generally. The inspiration is less optimal than on 09/27/2018, considering this there has probably been no significant change. IMPRESSION: Pulmonary edema and/or pneumonia. Electronically signed by Sudhir Blanco 09/28/2018 7:11 AM
[2018-09-28] MEDS: NEURONTIN PO SCH ×2 (08:24→20:08)
[2018-09-28] MEDS: LOPRESSOR PO SCH ×2 (08:24→20:07)
[2018-09-28] MEDS: CENTRUM TABLET NG SCH (08:24)
[2018-09-28] MEDS: LIBRIUM PO SCH ×3 (08:25→20:09)
--- NOTE | 2018-09-28 09:05 | PROGRESS NOTE ---
DATE: 09/28/2018 SUBJECTIVE: This morning Mr. Singh continues to be lethargic. However, he would open his eyes and be very much engaged to painful stimulation. Per the nursing staff, the night was uneventful, and his heart rate is a whole lot better controlled. OBJECTIVE: Vital signs: His current vitals blood pressure 127/55, pulse of 79, respirations 15, and temperature is 98 degrees. General: Mr. Singh is a 63-year-old gentleman. He is in bed. He is still kind of lethargic, but easily arousable. HEENT: Mucosa is pink and moist. Anicteric. Acyanotic. Neck: Supple. Chest: Air entry is bilaterally reduced, but no crackles. No rhonchi. Cardiovascular: Regular rate and rhythm. Occasional extrasystolic beats. Gastroenterology: Abdomen is soft. Bowel sounds present. Extremities: No pedal edema. Distal pulses are present. The left upper extremity looks relatively a little bit more swollen, but this seems to be getting better. The left lower extremity is also in orthopedic cast. 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 Will move very actively to painful stimulation. LABORATORY DATA: WBC is 18.50, hemoglobin is 10.9, and platelet count 345,000. Chemistry is also reviewed. Sodium is 147, potassium is 2.9, and creatinine is down to 1.2. So far, blood cultures and urine cultures have all been negative. DIAGNOSTIC STUDIES: A chest x-ray this morning continues to show pulmonary edema and/or pneumonia. Patient is on IV antibiotics. CURRENT MEDICATIONS: 1. Aztreonam 1 g every 8 hours. Today is day 6. 2. Linezolid 600 every 12 hours. Today is day 7. ASSESSMENT: 1. Convulsive seizures at home, presumably due to alcohol withdrawal. The patient has not had any more clinical seizures in the hospital. He is currently on fosphenytoin and neurology is on board. 2. Severe alcohol abuse with alcohol withdrawal symptoms associated with seizures. The patient is currently on Librium and gabapentin. 3. Altered mental status with negative neuro imaging. We think this is all related to toxic metabolic encephalopathy on background of possibly alcohol induced cognitive decline. 4. Acute renal failure improved. 5. Atrial fibrillation with rapid ventricular response. Currently, the patient's heart rate is better controlled on Cardizem drip. We will continue to titrate this down. 6. Left upper extremity swelling improved. Doppler shows no dvt. 7. Left patellar fracture. The patient has been evaluated by Orthopedics. There is a plan for ORIF at a later date when patient is clinically stable. 8. Multifocal pneumonia. We will continue with the current IV antibiotics. 9. Acute hypoxemic and hypercarbic respiratory failure secondary to COPD exacerbation, improved. We will continue with the standard care for the COPD management. 10. Mild hypernatremia and hypopotassemia. We will continue to address the electrolyte abnormalities. PLAN: So this morning, Mr. Singh seems to be fairly stable the same as yesterday. Mentation has really not shown a whole lot of improvement. He seems to be tolerating his NG tube feeding. He is having adequate urine output. We will continue with the current antimicrobial coverage. We will be weaning him off the steroid therapy, and we will continue to replace all the electrolyte abnormalities. I have also reached out to Mrs. Singh, the patient's , and I have updated her about the current medical condition. Of note, Mr. Singh was at home on hospice however having come to the hospital the reaffirmed that they want to keep Mr. Singh at full code. cc: Bruce Reed MD MTDD
[2018-09-28] MEDS: CEREBYX 200 MG in NS 50 ML IV SCH ×2 (11:28→22:44)
[2018-09-28] MEDS: THIAMINE 100 MG in NS 50 ML IV SCH (11:28)
[2018-09-28] MEDS: FOLIC ACID 1 MG in NS 50 ML IV SCH (11:28)
[2018-09-28] MEDS: ZYVOX 600 MG/D5W 600 MG/300 ML IVPB IV SCH (11:33)
[2018-09-28] MEDS: DILAUDID IV PRN ×2 (13:22→21:05)
[2018-09-28] MEDS: LOVENOX SUBQ SCH (15:23)
--- NOTE | 2018-09-28 17:32 | PROGRESS NOTE ---
DATE: 09/28/2018 Mr. Singh is much more alert and more spontaneous today. He is mumbling and speech remains difficult to understand. reports he did say some much more clearly understandable words earlier. He has not had clinically recognized seizure. I discussed with again the possibility that his baseline cognitive impairment syndrome might predispose him to less than complete recovery from recent neurologic insult. Only time will tell. I do not have any new suggestion today. Thanks for asking Neurology to see Mr. Singh. cc: Anel Sweeney III, MD
--- NOTE | 2018-09-28 17:51 | PROGRESS NOTE ---
DATE: 09/28/2018 SUBJECTIVE: The patient continues drowsy and lethargic. He continues in sinus rhythm. OBJECTIVE: Blood pressure 118/56, heart rate 76, with ECG monitor showing sinus rhythm. Oxygen saturation 96% on nasal cannula oxygen at 2 L/min. Jugular venous distention cannot be appreciated. Chest is clear to auscultation. Cardiac exam reveals a regular rate and rhythm without appreciable murmur, rub or gallop. Extremities are without edema. LABORATORY DATA: Includes a white blood cell count of 18.50, hematocrit 33.9, hemoglobin 10.9, platelet count 345,000. Sodium 147, potassium 2.9, chloride 107, carbon dioxide 29, BUN 44, creatinine 1.2. IMPRESSION: 1. Paroxysmal atrial flutter with rapid ventricular rate. The patient continues in sinus rhythm. 2. Encephalopathy. 3. Recent seizure with history of seizure disorder. 4. Alcohol dependency with recent alcohol withdrawal. 5. Left patellar fracture suffered during seizure and associated fall. RECOMMENDATIONS: 1. Continue oral diltiazem and metoprolol, and monitor cardiac rhythm. 2. May consider sotalol if continued problems with recurrent atrial arrhythmias manifest. cc: Chao Santiago MD
[2018-09-29] MEDS: AZACTAM 1 GM in NS 50 ML IV SCH ×3 (00:16→16:14)
[2018-09-29] MEDS: ZYVOX 600 MG/D5W 600 MG/300 ML IVPB IV SCH (00:17)
[2018-09-29] MEDS: ATIVAN IV PRN ×2 (01:09→19:45)
[2018-09-29] MEDS: CARDIZEM PO SCH ×4 (02:16→22:00)
[2018-09-29] MEDS: GEODON IM PRN ×3 (02:36→19:49)
[2018-09-29] MEDS: SOLU-MEDROL IV SCH ×3 (03:24→22:01)
[2018-09-29] MEDS: PEPCID IV SCH (03:24)
[2018-09-29 04:17] LABS: ALLEN TEST YES; BE 9.4 mmoll (-3.0-3.0); BLOOD TYPE ARTERIAL; HCO3-(ACT) 32.2 mmoll (20.0-26.0); METHB 0.2 % (0.0-1.5); O2HB 95.8 % (95.0-99.0); PCO2(98.6) 43 mmHg (35-45); PO2(98.6) 76 mmHg (60-100); SAMPLE BLOOD; SAO2 98.9 % (95.0-100.0); THB 10.3 g/dL (11.5-17.4)
[2018-09-29 04:18] LABS: MODALITY CANNULA
[2018-09-29 05:44] LABS: BASO# 0.01 X1000 (0.0-0.2); BASO% 0.1 % (0.0-0.8); HEMATOCRIT 33.4 % (42.0-52.0); HEMOGLOBIN 10.8 g/dL (14.0-18.0); IMM GRAN# 0.18 X1000 (0.0-0.04); LYMPH# 0.57 X1000 (1.2-3.4); MCH 27.8 PG (27-31); MCHC 32.3 g/dL (33-37); MCV 85.9 FL (81-99); MONO# 0.84 X1000 (0.11-0.59); MONO% 4.5 % (1.7-9.3); MPV 9.7 FL (7.4-10.4); NEUT# 17.24 X1000 (1.4-6.5); NEUT% 91.4 % (42.2-75.2); PLT 279 X1000 (130-400); RBC 3.89 XMIL (4.7-6.1); RDW 16.6 % (11.5-14.5); WBC 18.84 X1000 (4.8-10.8)
[2018-09-29 06:03] LABS: AGAP 11; BUN 42 mg/dL (8-22); CALCIUM 7.6 mg/dL (8.8-10.2); CHLORIDE 104 mmol/L (98-107); COSMO 305; ESTIMATED GFR > 60; GLUCOSE 229 mg/dL (70-104); POTASSIUM 3.4 mmol/L (3.5-5.1); SODIUM 144 mmol/L (136-145); TCO2 29 mmol/L (25-35)
--- NOTE | 2018-09-29 06:46 | Diag Imaging Result Doc PS360 ---
EXAM: CHEST-1 VIEW HISTORY: SOB TECHNIQUE: Chest single view COMPARISON: 09/28/2018 FINDINGS: The lungs are well expanded. No change in the right-sided PICC line or in the nasogastric tube. No cardiomegaly. There are small pleural effusions. There is pulmonary edema versus infiltrates. These are slightly less pronounced on the current study. There are multiple old rib fractures. IMPRESSION: Mild interval improvement. Electronically signed by Zeus Aguila 09/29/2018 6:43 AM
[2018-09-29] MEDS: D5 1/2 NS + KCL 20 MEQ 1,000 ML IV SCH ×2 (08:41→22:02)
[2018-09-29] MEDS: CENTRUM TABLET NG SCH (08:41)
[2018-09-29] MEDS: LOPRESSOR PO SCH ×2 (08:42→22:00)
[2018-09-29] MEDS: NEURONTIN PO SCH ×2 (08:42→22:01)
[2018-09-29] MEDS: LIBRIUM PO SCH (08:42)
[2018-09-29] MEDS: LOVENOX SUBQ SCH (09:53)
--- NOTE | 2018-09-29 10:43 | PROGRESS NOTE ---
DATE: 09/29/2018 SUBJECTIVE: This morning Mr. Singh continues to be remarkably the same, very lethargic and only responsive to painful stimulation. OBJECTIVE: Vitals: Blood pressure is 163/81, pulse of 73, respiration is 22, and temperature is 98.3 degrees. General: Mr. Singh is a 63-year-old gentleman. He is in bed. He is not in any distress. HEENT: Mucosa is pink and moist. Anicteric. Acyanotic. Neck: Supple. Chest: Air entry is bilaterally reduced. No crackles. No rhonchi. No accessory muscle use. Cardiovascular: Regular rate and rhythm. Occasional extrasystolic beats. GI: Abdomen is soft. Bowel sounds present. : Angela catheter is in place. Extremities: No pedal edema. The left lower extremity feels relatively a little colder than the right. The left upper extremity is also a little swollen. The left lower extremity is in an orthopedic cast. BOX PULLER: Patient is lethargic, was arousable to painful stimulation and will move extremities. He was also able to say it hurt when I was doing Babinski. LABORATORY DATA: WBC is 18.84, hemoglobin is 10.8, platelet count of 276. Chemistry is also reviewed. Sodium is down to 144, potassium is 3.4, chloride is 104, creatinine has normalized. So far, blood cultures and urine cultures have been negative. Patient I's and O's: Urine output was 4600. Patient is positive balance of 4087. Antimicrobials include Astromicin 1 g every 8 hours, today is day 7. Linezolid 600 every 12 hours, today is day 8. ASSESSMENT: 1. Convulsive seizures at home, presumably due to alcohol withdrawal seizures. The patient is on fosphenytoin. Has been evaluated by Neurology. Has not had any more seizures over here. She is also on as-needed Ativan. 2. Severe alcohol abuse with alcohol withdrawal symptoms on presentation (delirium tremens with seizures). He is on Librium and gabapentin. We will discontinue the Librium. 3. Altered mental status. Patient continues to be extremely lethargic. I think at this point it is mainly medication-induced on the background of possibly alcohol- induced cognitive decline. We are going to start weaning him off all the sedatives, including the Librium and the Ativan for now, and see if he will be able to be more responsive. 4. Acute kidney injury, resolved. Atrial fibrillation with rapid ventricular response. Heart rate is better controlled. Patient is currently in sinus with occasional premature ventricular complexes. Cardizem drip has been discontinued. He is on oral Cardizem. 5. Left patella fracture. Patient has been evaluated by Orthopedics. There is a plan for intervention when he is more stable. 6. Multifocal pneumonia, presumably aspiration pneumonia. Patient is on intravenous antibiotics. 7. Acute hypoxemic and hypercarbic respiratory failure secondary to chronic obstructive pulmonary disease and aspiration pneumonia noted. 8. Electrolyte abnormality. We will continue to address them on daily basis. PLAN: So today we are going to transition most of Mr. Singh's medication to p.o. We will also discontinue the Librium. We think he has gone past the withdrawal state. He continues to be remarkably drowsy, which I think is mainly because of medication side effects at this point. cc: Bruce Reed MD MTDD
[2018-09-29] MEDS: CEREBYX 200 MG in NS 50 ML IV SCH ×2 (11:09→22:02)
--- NOTE | 2018-09-29 13:39 | Extremity Venous Study ---
PROCEDURE NAME: Venous U/S Left Arm - 09/26/2018 LEFT UPPER EXTREMITY VENOUS ULTRASOUND: ABSTRACT MAKER: Ann Marie. INDICATION: Severe edema left arm. FINDINGS: The deep and superficial veins of the left upper extremity and neck were identified. The veins of the left upper extremity and neck appeared compressible with forward flow. No obvious deep or superficial venous thrombosis noted. cc: MD Bruce Bell MD
--- NOTE | 2018-09-29 15:01 | PROGRESS NOTE ---
DATE: 09/29/2018 SUBJECTIVE: The patient continues lethargic and confused. Eyes opened and looks to me upon my entering the room, but does not interact with me. He does not respond to verbal interaction. OBJECTIVE: Vital Signs: Blood pressure 174/76, heart rate 85 with ECG monitor showing sinus rhythm. Neck: There is no significant jugular venous distention. Chest: Clear to auscultation bilaterally. Cardiac exam: There was a regular rate and rhythm without appreciable murmur or gallop. Extremities: There is no evidence of peripheral edema. LABORATORY DATA: a white blood cell count 18.84, hematocrit 33.4, hemoglobin 10.8, platelet count 279. Sodium 144, potassium 3.4, chloride 104, carbon dioxide 29. BUN 42, creatinine 1.0, glucose 229. IMPRESSION: 1. Paroxysmal atrial arrhythmias with rapid ventricular rate. Patient continues in sinus rhythm. 2. Encephalopathy. 3. Recent seizure with history of seizure disorder. 4. Alcohol dependency with recent alcohol withdrawal. 5. Left patellar fracture suffered during seizure and associated fall. RECOMMENDATIONS: 1. Continue current cardiovascular regimen with oral diltiazem and metoprolol as tolerated. 2. May consider sotalol if problems with recurrent atrial arrhythmias manifest. cc: Chao Santiago MD
--- NOTE | 2018-09-29 21:12 | Diag Imaging Result Doc PS360 ---
EXAM: CHEST/ABD TUBE PLACEMENT - 09/29/2018 HISTORY: NGT placement TECHNIQUE: Portable exam for nasogastric tube placement COMPARISON: None. FINDINGS: The tip of the nasogastric tube is at the expected location of the mid stomach. IMPRESSION: Nasogastric tube extending to mid stomach. Electronically signed by Omkar Tony 09/29/2018 9:09 PM
[2018-09-29] MEDS: ZYVOX NG SCH (22:00)
[2018-09-30] MEDS: AZACTAM 1 GM in NS 50 ML IV SCH ×3 (02:41→20:22)
[2018-09-30] MEDS: CARDIZEM PO SCH ×2 (02:42→07:31)
[2018-09-30] MEDS: ATIVAN IV PRN (02:50)
[2018-09-30] MEDS: GEODON IM PRN ×2 (02:50→07:31)
[2018-09-30] MEDS: PROTONIX PO SCH (06:07)
[2018-09-30 06:34] LABS: BASO% 0.2 % (0.0-0.8); EOS# 0.01 X1000 (0.0-0.7); HEMATOCRIT 37.2 % (42.0-52.0); IMM GRAN% 1.4 % (0.0-0.5); LYMPH# 1.23 X1000 (1.2-3.4); MCH 28.2 PG (27-31); MCHC 32.3 g/dL (33-37); MCV 87.3 FL (81-99); MONO# 1.49 X1000 (0.11-0.59); MONO% 7.2 % (1.7-9.3); MPV 10.4 FL (7.4-10.4); NEUT# 17.54 X1000 (1.4-6.5); NEUT% 85.2 % (42.2-75.2); PLT 284 X1000 (130-400); RBC 4.26 XMIL (4.7-6.1); RDW 17.4 % (11.5-14.5)
[2018-09-30 06:35] LABS: BASO# 0.05 X1000 (0.0-0.2); IMM GRAN# 0.28 X1000 (0.0-0.04)
[2018-09-30 06:44] LABS: AGAP 11; ALBUMIN 2.7 g/dL (3.5-5.0); BUN 42 mg/dL (8-22); CALCIUM 7.8 mg/dL (8.8-10.2); CHLORIDE 106 mmol/L (98-107); COSMO 310; CREATININE 0.9 mg/dL (0.7-1.2); ESTIMATED GFR > 60; GLUCOSE 190 mg/dL (70-104); MAGNESIUM 1.7 mg/dL (1.5-2.7); PHOSPHORUS 3.2 mg/dL (2.7-4.5); SODIUM 148 mmol/L (136-145); TCO2 31 mmol/L (25-35)
[2018-09-30] MEDS ORDERED: CARDIZEM IV ONE (08:40)
[2018-09-30] MEDS ORDERED: LOPRESSOR IV PRN (08:41)
[2018-09-30] MEDS: LOVENOX SUBQ SCH (09:01)
[2018-09-30] MEDS: CENTRUM TABLET NG SCH (09:01)
[2018-09-30] MEDS: ZYVOX NG SCH ×2 (09:01→20:22)
[2018-09-30] MEDS: SOLU-MEDROL IV SCH ×2 (09:01→20:22)
[2018-09-30] MEDS: FOLIC ACID NG SCH (09:01)
[2018-09-30] MEDS: VITAMIN B-1 PO SCH (09:02)
[2018-09-30] MEDS: LOPRESSOR PO SCH ×3 (09:02→20:22)
[2018-09-30] MEDS: NEURONTIN PO SCH ×2 (09:02→20:22)
[2018-09-30] MEDS: CARDIZEM 125/NS 125 MG/125 ML IVPB IV SCH ×2 (09:02→18:31)
[2018-09-30] MEDS: CEREBYX 200 MG in NS 50 ML IV SCH ×2 (10:31→22:55)
--- NOTE | 2018-09-30 10:45 | PROGRESS NOTE ---
DATE: 09/30/2018 SUBJECTIVE: Today Mr. Singh refers to be doing a little better. He actually asked me to help him scoot up a little bit in the bed. He also expressed his desire to wanting to eat. However, per the nursing staff, he was more agitated overnight and he pulled his NG tube at some point. This has been replaced and an x-ray was done last night which confirmed adequate placement. CURRENT VITALS: Blood pressure is 124/85, pulse of 93, respiration is 20, temperature is 98.0 degrees. Patient heart rate has just gone up to about 178. Cardiology has been notified, and they restarted the patient on Cardizem drip, which he was on that point during the ICU stay. OBJECTIVE: General: Mr. Singh is a 63-year-old, elderly male. He is in bed. He is not in any cardiopulmonary distress. HEENT: Mucosa is pink, a little bit dry. Anicteric. Acyanotic. Neck: Supple. Chest: Air entry is bilaterally reduced, but no crackles. No rhonchi. No accessory muscle use. Cardiovascular: Tachycardic, seems to be irregular, but no murmurs. GI: Abdomen is soft. Bowel sounds are present. : Angela catheter is still in place. Extremities: No pedal edema. The left lower extremity is still in an orthopedic cast, and the left upper extremity is minimally more swollen. CELL CHANGER: The patient is still lethargic, but seems to be a little bit more responsive today than yesterday. LABORATORY DATA: WBC is up to 20.60, hemoglobin is 12.0, platelet count of 284. Chemistry is also reviewed. Sodium is 148, potassium is 3.0, BUN is 42. I understand patient did not get any of his IV fluids. IMAGING STUDIES: A chest x-ray yesterday actually showed some improvement. ASSESSMENT: 1. Compulsive seizures at home secondary to alcohol withdrawal seizures. The patient is currently on gabapentin and also fosphenytoin. Was evaluated by Neurology. Has not had any more seizures. 2. Severe alcohol abuse with alcohol withdrawal symptoms on presentation (delirium tremens with seizures). The patient is currently on therapy. 3. Altered mental status with extreme lethargy. Mentation seems to be gradually getting better. 4. Acute kidney injury, resolved. 5. Atrial fibrillation with rapid ventricular response. The patient has been started back on Cardizem drip. 6. Left patellar fracture. Orthopedics on board as I plan for intervention when patient is medically more stable. 7. Bilateral multifocal pneumonia, most likely aspiration pneumonia. The patient is on intravenous antibiotics. White cell count continues to be high, so we are going to repeat all his cultures. We are going to take the Angela catheter out. 8. Electrolyte abnormality. We will continue to replace them on daily basis. 9. Clinical volume depletion. Patient will continue to be on intravenous fluids. PLAN: So, today we are going to discontinue the Angela catheter. We are going to repeat the urine cultures and blood cultures. We will start the patient on p.r.n. morphine. We are going to continue with the current antimicrobial coverage. We will replace all the electrolyte abnormality, and we will start the patient on ice chips and advance. If he is able to tolerate that, we will start him on a pureed diet. I have discussed the plan with his attending nurse. cc: Bruce Reed MD
[2018-09-30] MEDS ORDERED: MAGNESIUM SULFATE 2 GM/S.W.I. 2 GM/50 ML IVPB IV ONE (13:22)
[2018-09-30] MEDS: 1/2 NS 1,000 ML IV SCH (13:56)
[2018-09-30] MEDS: NICODERM PATCH TD SCH (13:56)
[2018-09-30] MEDS: MORPHINE IV PRN (14:50)
--- NOTE | 2018-09-30 15:30 | CARDIOLOGY PROGRESS NOTE ---
DATE: 09/30/2018 SUBJECTIVE: Mr. Singh is somewhat confused today. He was apparently transferred up from the ICU yesterday. He had some combativeness overnight and was placed in restraints, given some Geodon. He localizes to the examiner, attempts to answer questions but is unintelligible mumbling. OBJECTIVE: His heart rate currently is in the 150s and appears to be probable atrial fibrillation versus flutter. Blood pressure most recently is 124/85. General: No acute distress. Cardiovascular: He is in a tachycardic and regular sounding rhythm. He has no lower extremity edema. His chest exam has coarse breath sounds, poor inspiratory effort. Abdomen is soft, nontender. DIAGNOSTIC DATA: Lab curtis, his white count is 20, hematocrit 37, platelet count 284. His white count has been relatively steady for the last several days. His sodium is 148, potassium is 3, BUN is 42, creatinine 0.9, albumin 2.7, his magnesium level is 1.7. ASSESSMENT: Mr. Singh is a 63-year-old gentleman who presented with apparent polysubstance abuse, patellar fracture, has had issues with atrial fibrillation during this hospitalization. PLAN: I have adjusted his medications including placing him on diltiazem drip, having p.r.n. Lopressor as well as increasing his oral Lopressor. We will proceed with this route of treatment for the time being. I will ensure his electrolytes including his magnesium and his potassium have been repleted. He seems to be a little bit dry based on his rising sodium. I will review his dietary orders. cc: Ronaldo Elizabeth MD
[2018-09-30] MEDS: POTASSIUM CHLORIDE 20 MEQ/SWI 20 MEQ/100 ML IVPB IV SCH ×2 (16:45→20:21)
[2018-10-01] MEDS: LOPRESSOR PO SCH ×4 (00:31→20:19)
[2018-10-01] MEDS: MORPHINE IV PRN ×4 (00:31→20:48)
[2018-10-01] MEDS: ATIVAN IV PRN (02:06)
[2018-10-01] MEDS: AZACTAM 1 GM in NS 50 ML IV SCH ×3 (03:24→20:19)
[2018-10-01] MEDS: PROTONIX PO SCH ×2 (05:37→06:05)
[2018-10-01 05:53] LABS: BASO# 0.03 X1000 (0.0-0.2); BASO% 0.2 % (0.0-0.8); EOS# 0.22 X1000 (0.0-0.7); EOS% 1.2 % (0.0-10.0); HEMATOCRIT 30.7 % (42.0-52.0); HEMOGLOBIN 9.6 g/dL (14.0-18.0); IMM GRAN# 0.46 X1000 (0.0-0.04); IMM GRAN% 2.4 % (0.0-0.5); LYMPH# 1.58 X1000 (1.2-3.4); LYMPH% 8.4 % (20.5-51.1); MCHC 31.3 g/dL (33-37); MCV 86.5 FL (81-99); MONO# 1.17 X1000 (0.11-0.59); MONO% 6.2 % (1.7-9.3); MPV 10.1 FL (7.4-10.4); NEUT# 15.32 X1000 (1.4-6.5); NEUT% 81.6 % (42.2-75.2); PLT 275 X1000 (130-400); RBC 3.55 XMIL (4.7-6.1); RDW 16.8 % (11.5-14.5); WBC 18.78 X1000 (4.8-10.8)
[2018-10-01] MEDS: 1/2 NS 1,000 ML IV SCH (06:04)
[2018-10-01 06:20] LABS: AGAP 9; BUN 30 mg/dL (8-22); CALCIUM 7.1 mg/dL (8.8-10.2); CHLORIDE 100 mmol/L (98-107); COSMO 283; CREATININE 0.8 mg/dL (0.7-1.2); ESTIMATED GFR > 60; GLUCOSE 111 mg/dL (70-104); POTASSIUM 3.5 mmol/L (3.5-5.1); SODIUM 138 mmol/L (136-145); TCO2 29 mmol/L (25-35)
[2018-10-01] MEDS: SOLU-MEDROL IV SCH (08:23)
[2018-10-01] MEDS: NICODERM PATCH TD SCH (08:40)
[2018-10-01] MEDS: CENTRUM TABLET NG SCH (08:40)
[2018-10-01] MEDS: NEUTRA-PHOS PO SCH ×4 (08:40→20:19)
[2018-10-01] MEDS: FOLIC ACID NG SCH (08:41)
[2018-10-01] MEDS: VITAMIN B-1 PO SCH (08:41)
[2018-10-01] MEDS: NEURONTIN PO SCH ×2 (08:41→20:19)
[2018-10-01] MEDS: ZYVOX NG SCH (08:41)
[2018-10-01] MEDS: LOVENOX SUBQ SCH (08:58)
[2018-10-01] MEDS ORDERED: MAG-OX PO SCH (09:00)
[2018-10-01] MEDS: CEREBYX 200 MG in NS 50 ML IV SCH ×2 (11:11→21:50)
--- NOTE | 2018-10-01 12:49 | PROGRESS NOTE ---
DATE: 10/01/2018 SUBJECTIVE: This morning, Mr. Singh refers to be doing fairly okay. NG tube is out. He has been started on a pureed diet and he seems to be tolerating it well. OBJECTIVE: Vital Signs: Blood pressure is 116/71, pulse is 68, respirations are 17, temperature is 98.2 degrees. General Examination: Mr. Singh is a 63-year-old, gentleman. He is in bed, not seemingly distressed. HEENT: Mucosa is pink and moist. Anicteric. Acyanotic. Neck: Supple. Chest: Air entry is bilaterally reduced but no crackles. No rhonchi. No accessory muscle use. Cardiovascular: Regular rate and rhythm. Abdomen: Soft, nontender. 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 Seems to be more conversational. Followed basic commands. The left lower extremity is still in an orthopedic cast. Laboratory Data: WBC is 18.78, hemoglobin is 9.6, platelet count of 275,000. Chemistry is also reviewed and completely normal. Magnesium is 1.4. ASSESSMENT: 1. Convulsive seizures at home secondary to alcohol withdrawal. No more seizures during the hospital course. 2. Severe alcohol abuse with alcohol withdrawal symptoms on presentation. 3. Altered mental status, gradually improving during the hospital course. 4. Acute kidney injury, resolved. 5. Atrial fibrillation with rapid ventricular response. Patient is on Cardizem. 6. Left patellar fracture. Orthopedics has been consulted. 7. Bilateral multifocal pneumonia, most likely aspiration pneumonia. Patient is on antimicrobial therapy. 8. Electrolyte abnormality. We will continue to replace. 9. Clinical volume depletion. Patient is on intravenous fluids. PLAN: In general, I think Mr. Singh is doing a lot better. Mentation is progressively getting better. I think the WBC elevation is more reactive and steroid induced than a reflection of any ongoing infection. Angela catheter was removed yesterday. He seems to be tolerating his diet. We will get PT to start working with him and hopefully get him home soon. cc: Bruce Reed MD
--- NOTE | 2018-10-01 15:02 | CARDIOLOGY PROGRESS NOTE ---
DATE: 10/01/2018 SUBJECTIVE: Mr. Singh continues to be quite difficult to understand, but seems a little bit more alert today. OBJECTIVE: Afebrile. Heart rate is 65. His blood pressure today is 116/75. Generally, he is in no acute distress. Cardiovascularly, he sounds to be in a regular rate and rhythm. I do not hear any obvious murmurs. He has no S3. He has no lower extremity edema. His chest exam is clear to auscultation bilaterally. No increased work of breathing. PERTINENT DATA: His white count is 18.7, hematocrit 30 platelet, count is 275,000. Sodium 138, potassium 3.5, BUN 30, creatinine 0.8. ASSESSMENT: Mr. Singh is a 63-year-old gentleman who has: 1. Issues with polysubstance abuse. 2. Patellar fracture. 3. Had some episodes of atrial fibrillation. He seems to be doing better from the standpoint of his heart rate is controlled. He is on metoprolol which we have escalated to 25 q.6 hours. We will continue him on that for the time being. No acute recommendations currently. cc: Ronaldo Elizabeth MD
[2018-10-01] MEDS ORDERED: MAG-OX PO PRN (15:32)
[2018-10-01] MEDS: ZYVOX PO SCH (20:19)
[2018-10-01] MEDS: TUMS PO SCH (20:19)
[2018-10-01] MEDS: CARDIZEM 125/NS 125 MG/125 ML IVPB IV SCH (20:47)
[2018-10-02] MEDS: MORPHINE IV PRN ×5 (00:56→19:00)
[2018-10-02] MEDS: CEREBYX 200 MG in NS 50 ML IV SCH ×2 (00:56→12:47)
[2018-10-02] MEDS: LOPRESSOR PO SCH ×4 (00:56→20:20)
[2018-10-02] MEDS: AZACTAM 1 GM in NS 50 ML IV SCH ×3 (03:14→20:20)
[2018-10-02] MEDS: PROTONIX PO SCH ×2 (05:32→06:02)
[2018-10-02 05:55] LABS: BASO# 0.02 X1000 (0.0-0.2); BASO% 0.1 % (0.0-0.8); EOS# 0.63 X1000 (0.0-0.7); EOS% 4.4 % (0.0-10.0); HEMATOCRIT 28.2 % (42.0-52.0); HEMOGLOBIN 9.1 g/dL (14.0-18.0); IMM GRAN# 0.43 X1000 (0.0-0.04); LYMPH# 1.67 X1000 (1.2-3.4); LYMPH% 11.7 % (20.5-51.1); MCH 27.7 PG (27-31); MCHC 32.3 g/dL (33-37); MCV 85.7 FL (81-99); MONO# 1.23 X1000 (0.11-0.59); MONO% 8.6 % (1.7-9.3); MPV 10.7 FL (7.4-10.4); NEUT# 10.27 X1000 (1.4-6.5); NEUT% 72.2 % (42.2-75.2); PLT 273 X1000 (130-400); RBC 3.29 XMIL (4.7-6.1); RDW 16.2 % (11.5-14.5); WBC 14.25 X1000 (4.8-10.8)
[2018-10-02 06:16] LABS: AGAP 9; BUN 19 mg/dL (8-22); CALCIUM 7.2 mg/dL (8.8-10.2); CHLORIDE 98 mmol/L (98-107); COSMO 271; CREATININE 0.8 mg/dL (0.7-1.2); ESTIMATED GFR > 60; GLUCOSE 76 mg/dL (70-104); MAGNESIUM 1.3 mg/dL (1.5-2.7); PHOSPHORUS 2.5 mg/dL (2.7-4.5); SODIUM 135 mmol/L (136-145); TCO2 28 mmol/L (25-35)
--- NOTE | 2018-10-02 06:51 | Diag Imaging Result Doc PS360 ---
EXAM: CHEST-1 VIEW HISTORY: SOB TECHNIQUE: Chest single view COMPARISON: 09/29/2018 FINDINGS: Interval removal of the nasogastric tube. No change in the right-sided PICC line. The lungs are well expanded. No cardiomegaly. There are small pleural effusions. Mild increased interstitial markings throughout both lungs similar to the prior exam. There are multiple old rib fractures. IMPRESSION: Stable chest. Electronically signed by Zeus Aguila 10/02/2018 6:49 AM
--- NOTE | 2018-10-02 07:26 | EKG Report ---
Test Performed on : 09/30/2018 5:43:01 PM Test Reason : elevated hr Blood Pressure : / mmHG Vent. Rate : 061 BPM Atrial Rate : 061 BPM P-R Int : 138 ms QRS Dur : 100 ms QT Int : 394 ms P-R-T Axes : 051 043 044 degrees QTc Int : 396 ms Normal sinus rhythm. Possible Left atrial enlargement Incomplete right bundle branch block Nonspecific T wave abnormality Abnormal ECG When compared with ECG of 30-SEP-2018 08:24, (Unconfirmed) Sinus rhythm. has replaced Atrial fibrillation. Vent. rate has decreased BY [address] no longer depressed in Inferior leads ST no longer depressed in Anterolateral leads Confirmed by Soumya SANDRA, Benny Sargent ([id number]) on 10/03/2018 7:27:42 PM
[2018-10-02] MEDS: DUONEB (A & A) INH PRN (07:27)
[2018-10-02] MEDS ORDERED: MAGNESIUM SULFATE 4 GM/S.W.I. 4 GM/100 ML IVPB IV ONE (07:49)
[2018-10-02] MEDS ORDERED: POTASSIUM PHOSPHATE 60 MEQ in NS 250 ML IV ONE (07:49)
[2018-10-02] MEDS: NICODERM PATCH TD SCH (08:16)
[2018-10-02] MEDS: NEUTRA-PHOS PO SCH ×4 (08:16→20:20)
[2018-10-02] MEDS: NEURONTIN PO SCH ×2 (08:17→20:20)
[2018-10-02] MEDS: TUMS PO SCH ×2 (08:17→20:20)
[2018-10-02] MEDS: PREDNISONE PO SCH (08:17)
[2018-10-02] MEDS: CENTRUM TABLET NG SCH (08:17)
[2018-10-02] MEDS: VITAMIN B-1 PO SCH (08:17)
[2018-10-02] MEDS: FOLIC ACID NG SCH (08:17)
[2018-10-02] MEDS: ZYVOX PO SCH ×2 (08:21→20:20)
--- NOTE | 2018-10-02 10:37 | EKG Report ---
Test Performed on : 09/30/2018 08:24:07 AM Test Reason : CIC. NO EKG ORDER FOR MUSE Blood Pressure : / mmHG Vent. Rate : 184 BPM Atrial Rate : 375 BPM P-R Int : 000 ms QRS Dur : 090 ms QT Int : 274 ms P-R-T Axes : 000 004 109 degrees QTc Int : 479 ms Atrial fibrillation. with rapid ventricular response. Marked ST abnormality, possible inferior subendocardial injury Marked ST abnormality, possible anterior subendocardial injury Abnormal ECG When compared with ECG of 26-SEP-2018 21:47, (Unconfirmed) Atrial fibrillation. has replaced Junctional rhythm. QRS duration has decreased Nonspecific T wave abnormality no longer evident in Inferior leads Confirmed by Soumya SANDRA, Benny Sargent ([id number]) on 10/03/2018 7:27:21 PM
[2018-10-02] MEDS: CARDIZEM PO SCH ×3 (11:50→20:20)
[2018-10-02] MEDS ORDERED: CARDIZEM PO SCH (14:00)
[2018-10-02] MEDS: LOVENOX SUBQ SCH (14:03)
--- NOTE | 2018-10-02 19:47 | PROGRESS NOTE ---
DATE: 10/02/2018 SUBJECTIVE: Mr. Singh has not had clinically apparent seizure. He is tolerating current phenytoin level. He has made steady spontaneous recovery over the last several days. OBJECTIVE: Today, he is awake, alert, attentive. He answered simple questions correctly and appropriately. He is oriented correctly to the day of the week, the month, and his location. IMPRESSION: Global encephalopathy, resolving. PLAN: I do not have any new suggestion from Neurology standpoint. I would continue current phenytoin dose. His risk for seizure will be reduced if he does not abuse ethanol. We might need to check the phenytoin level again before discharge. I encouraged him to be careful with gait and activities. Thanks for asking Neurology to see Mr. Singh. cc: Anel Sweeney III, MD
[2018-10-03] MEDS: CEREBYX 200 MG in NS 50 ML IV SCH ×2 (00:20→13:20)
[2018-10-03] MEDS: LOPRESSOR PO SCH ×4 (01:00→20:37)
[2018-10-03] MEDS: CARDIZEM PO SCH ×4 (01:00→20:38)
[2018-10-03] MEDS: MORPHINE IV PRN ×6 (02:00→22:11)
[2018-10-03] MEDS: AZACTAM 1 GM in NS 50 ML IV SCH ×3 (03:55→20:35)
[2018-10-03] MEDS: PROTONIX PO SCH (05:59)
[2018-10-03 07:37] LABS: BASO# 0.02 X1000 (0.0-0.2); BASO% 0.2 % (0.0-0.8); EOS# 0.36 X1000 (0.0-0.7); EOS% 2.9 % (0.0-10.0); HEMATOCRIT 28.4 % (42.0-52.0); IMM GRAN# 0.28 X1000 (0.0-0.04); IMM GRAN% 2.3 % (0.0-0.5); LYMPH# 1.22 X1000 (1.2-3.4); LYMPH% 9.9 % (20.5-51.1); MCH 27.1 PG (27-31); MCHC 31.7 g/dL (33-37); MCV 85.5 FL (81-99); MONO# 1.27 X1000 (0.11-0.59); MONO% 10.3 % (1.7-9.3); MPV 10.9 FL (7.4-10.4); NEUT# 9.21 X1000 (1.4-6.5); NEUT% 74.4 % (42.2-75.2); PLT 282 X1000 (130-400); RBC 3.32 XMIL (4.7-6.1); RDW 16.2 % (11.5-14.5); WBC 12.36 X1000 (4.8-10.8)
[2018-10-03 07:57] LABS: AGAP 7; BUN 12 mg/dL (8-22); CALCIUM 7.3 mg/dL (8.8-10.2); CHLORIDE 100 mmol/L (98-107); COSMO 271; CREATININE 0.7 mg/dL (0.7-1.2); ESTIMATED GFR > 60; GLUCOSE 118 mg/dL (70-104); POTASSIUM 3.3 mmol/L (3.5-5.1); SODIUM 135 mmol/L (136-145); TCO2 28 mmol/L (25-35)
[2018-10-03] MEDS: VITAMIN B-1 PO SCH (08:43)
[2018-10-03] MEDS: FOLIC ACID NG SCH (08:43)
[2018-10-03] MEDS: NEURONTIN PO SCH ×2 (08:43→20:37)
[2018-10-03] MEDS: PREDNISONE PO SCH (08:43)
[2018-10-03] MEDS: NEUTRA-PHOS PO SCH ×4 (08:43→20:38)
[2018-10-03] MEDS: ZYVOX PO SCH ×2 (08:43→20:37)
[2018-10-03] MEDS: TUMS PO SCH ×2 (08:44→20:38)
[2018-10-03] MEDS: CENTRUM TABLET NG SCH (08:44)
[2018-10-03] MEDS: NICODERM PATCH TD SCH (08:44)
[2018-10-03] MEDS: DUONEB (A & A) INH PRN (11:40)
[2018-10-03] MEDS: LOVENOX SUBQ SCH (13:20)
--- NOTE | 2018-10-03 20:33 | PROGRESS NOTE ---
DATE: 09/29/2018 LATE ENTRY This dictation is provided late. I believe there were some equipment and/or technical problems with the original dictation, which was done just after I saw Mr. Singh on 09/29/2018. He was more awake and alert than the day before. His speech was very dysarthric but more easily understood. He followed some simple commands. There was no focal neurologic deficit. He used each hand purposefully. Extraocular movements were full. There was no meningismus. He has not had clinically recognized seizure. He seems to be tolerating current phenytoin dose. No new suggestions from neurology standpoint. cc: Anel Sweeney III, MD MTDD
--- NOTE | 2018-10-03 21:26 | PROGRESS NOTE ---
DATE: 10/02/2018 SUBJECTIVE: This morning Mr. Singh refers to be feeling a lot better. The was at the bedside at the time of the encounter. OBJECTIVE: Vital signs: Blood pressure is 119/79, pulse of 59, respirations is 18, temperature is 97.6. General: Mr. Singh is a 63-year-old gentleman. He is in bed. He is still on a nasal cannula oxygenation. HEENT: Mucosa is pink and moist. Anicteric and acyanotic. Neck: Supple. Chest: Air entry bilaterally reduced, but there were no crackles, no rhonchi, no accessory muscle use. Cardiovascular: Regular rate. No murmurs. No rubs. No gallops. Gastrointestinal: Abdomen is soft, nontender. Bowel sounds present. Extremities: No pedal edema. HEEL EMERY BUFFER: The patient is awake, alert and oriented. He follows basic commands. The left lower extremity continues to be in an orthopedic cast. LABORATORY DATA: WBC is 14.25, hemoglobin is 9.1, platelet count of 273,000. Chemistry is also reviewed. Potassium is 3.0, phosphorous is 2.5, magnesium is 1.3. So far, the repeat blood cultures from 3 days ago and urine culture have all been negative. MEDICATIONS: Current medications have all been reviewed. ASSESSMENT: 1. Convulsive seizures at home, presumed to be secondary to alcohol withdrawal seizures. The patient is currently on anti-seizure medications and has been evaluated by neurology. 2. Severe alcohol abuse with delirium tremens on presentation. 3. Altered mental status, which has gradually improved during the hospital course. 4. Acute kidney injury, resolved. 5. Atrial fibrillation with rapid ventricular response during the hospital course. The patient is currently on Cardizem drip. We have transitioned that to p.o. Cardizem and metoprolol. Cardiology has evaluated the patient. Because of frequent falls, anticoagulation has been advised against. 6. Left patellar fracture. The patient has been evaluated by orthopedics. He will follow up with them on an outpatient basis. 7. Bilateral motor focal pneumonia secondary to aspiration pneumonia. The patient is on antimicrobial therapy (aztreonam 1 g every 8 hours. Today is day 10 and will be the last day, as well as Zyvox 600 p.o. q.8 is also day 10). 8. Multiple electro-mineral abnormalities. We will continue to replace them. 9. Clinical volume depletion, improved. 10.Generalized weakness and deconditioning. The patient has been evaluated by physical therapy. I understand he is extremely weak and they recommend to continue with physical rehabilitation. So, in general, Mr. Singh has been in the hospital for the past 20 days. He was admitted on 09/12/2018, initially at [place] because of seizure attack. He was transferred from [place] to [facility] for higher level of care. Initially, Mr. Singh was in the ICU for most of his hospital stay. When he became more stabilized he was transferred to the [facility]. He has not had any more seizures and he has not had any more withdrawal symptoms. During the hospital course, he has been found to be in atrial fibrillation RVR and this has been evaluated by cardiology. He is currently on p.o. Cardizem and now metoprolol and his heart rate seems to be doing better. He was evaluated for the first time by physical therapy and they recommend to continue physical therapy. We think that Mr. Singh is getting clinically stable and that maybe within the next 24 to 48 hours we can get him home. He was initially at home with hospice because of advanced COPD. We can get Mr. Singh to be a little bit stronger with physical therapy and hopefully get him home. cc: Bruce Reed MD
[2018-10-04] MEDS: ATIVAN IV PRN (00:57)
[2018-10-04] MEDS: LOPRESSOR PO SCH ×2 (01:05→10:02)
[2018-10-04] MEDS: CARDIZEM PO SCH ×2 (01:06→10:02)
[2018-10-04] MEDS: CEREBYX 200 MG in NS 50 ML IV SCH ×2 (01:15→12:17)
[2018-10-04] MEDS: MORPHINE IV PRN ×3 (02:38→10:17)
[2018-10-04] MEDS: AZACTAM 1 GM in NS 50 ML IV SCH ×2 (04:53→11:20)
[2018-10-04] MEDS: PROTONIX PO SCH (06:18)
[2018-10-04 07:16] LABS: BASO# 0.03 X1000 (0.0-0.2); BASO% 0.3 % (0.0-0.8); EOS# 0.25 X1000 (0.0-0.7); EOS% 2.2 % (0.0-10.0); HEMOGLOBIN 9.2 g/dL (14.0-18.0); IMM GRAN# 0.35 X1000 (0.0-0.04); LYMPH# 1.49 X1000 (1.2-3.4); LYMPH% 12.8 % (20.5-51.1); MCH 27.5 PG (27-31); MCHC 31.7 g/dL (33-37); MCV 86.8 FL (81-99); MONO# 1.23 X1000 (0.11-0.59); MONO% 10.6 % (1.7-9.3); MPV 10.7 FL (7.4-10.4); NEUT# 8.26 X1000 (1.4-6.5); NEUT% 71.1 % (42.2-75.2); PLT 329 X1000 (130-400); RBC 3.34 XMIL (4.7-6.1); RDW 16.8 % (11.5-14.5); WBC 11.61 X1000 (4.8-10.8)
[2018-10-04 07:37] LABS: AGAP 5; BUN 8 mg/dL (8-22); CALCIUM 7.8 mg/dL (8.8-10.2); CHLORIDE 99 mmol/L (98-107); COSMO 274; CREATININE 0.8 mg/dL (0.7-1.2); ESTIMATED GFR > 60; GLUCOSE 98 mg/dL (70-104); POTASSIUM 3.3 mmol/L (3.5-5.1); SODIUM 138 mmol/L (136-145); TCO2 34 mmol/L (25-35)
--- NOTE | 2018-10-04 08:06 | ED EKG INTERP ---
This chart was entered by Cleo Biswas Scribe, acting as scribe for Matt Baldwin MD. EKG Interpretation - EKG Time of EKG reading by physician:: 19:13 EKG Read and Signed by:: Matt Baldwin EKG Interpretation (*Must complete 3 of following elements*): Abnormal (possible left atrial enlargement prolonged QT) Rate: 82 Rhythm: sinus rhythm QRS: RBB (incomplete) ST Wave: non-specific ST changes Attestation - Physician/ ADAM Attestation Patient care was provided by Advanced Practice Provider:: No The physician spent face to face time with patient:: Yes Advanced Practice Provider documentation review:: Supervising physician onsite and consulted in the evaluation and care of this patient. The physician did have a face to face encounter with the patient. This chart was documented by the indicated scribe, (Cleo Biswas Scribe) and accurately reflects the services I performed and decisions made by me, Matt Baldwin MD, as attested by the provider's signature.
[2018-10-04] MEDS: VITAMIN B-1 PO SCH (10:01)
[2018-10-04] MEDS: CENTRUM TABLET NG SCH (10:01)
[2018-10-04] MEDS: ZYVOX PO SCH (10:01)
[2018-10-04] MEDS: NEURONTIN PO SCH (10:01)
[2018-10-04] MEDS: TUMS PO SCH (10:01)
[2018-10-04] MEDS: NICODERM PATCH TD SCH (10:01)
[2018-10-04] MEDS: NEUTRA-PHOS PO SCH (10:01)
[2018-10-04] MEDS: FOLIC ACID NG SCH (10:02)
[2018-10-04] MEDS: PREDNISONE PO SCH (10:02)
[2018-10-04 11:43] VITALS: BP 112/67
[2018-10-04] MEDS ORDERED: KLOR-CON PO ONE (12:43)
--- NOTE | 2018-10-04 14:34 | PROGRESS NOTE ---
DATE: 10/04/2018 Mr. Singh is awake, alert, and attentive. He had appropriate conversation with me. He reports no clear memory of events leading up to this hospitalization. He has not had a seizure since arrival to this campus. He seems to be tolerating current phenytoin dose. I encouraged him to continue ethanol abstinence and to take his medicines as directed. I think we should continue phenytoin 200 mg b.i.d. at least short term. I will be glad to follow him as an outpatient if needed. Thanks for asking Neurology to see Mr. Singh. cc: MD VAL Barth III
--- NOTE | 2018-10-04 20:57 | ORTHOPAEDICS PROGRESS NOTE ---
DATE: 10/04/2018 SUBJECTIVE DATA: Mr. Singh is seen today for his left patella fracture. He reports he is still having pain in the left knee at this time. He states that he is not able to have any type of surgery at this time because his needs surgery for some recent complication. He would like her to have her surgery first before he proceeds with surgery. He states he is also in hospice care and he needs to talk with his hospice doctor first. OBJECTIVE DATA: The patient is in a knee immobilizer on the left knee. There is good pedal pulses. There is negative Homans sign. There is good capillary refill in toes. There is obvious deformity to the left patella. ASSESSMENT: Left patella fracture. PLAN: We plan on letting Mr. Singh follow up with us on an outpatient basis. He will need to come by the office to be evaluated again after he is seen by his doctor. We will need to repeat x- rays at that time. We will see him then. Dictated by KRZYSZTOF Joe for Daniel Florez MD cc: KRZYSZTOF Joe MD
--- NOTE | 2018-10-05 15:25 | DISCHARGE SUMMARY ---
ADMISSION DATE: 09/12/2018 DISCHARGE DATE: 10/04/2018 ADMITTING DIAGNOSES: 1. Seizures. 2. Alcohol abuse with delirium tremens. 3. Altered mental status. 4. Acute kidney injury. 5. Atrial fibrillation with rapid ventricular response. 6. Left patellar fracture. 7. Bilateral multifocal pneumonia secondary to aspiration pneumonia. 8. Electrical abnormalities. 9. Volume depletion. 10. Weakness and deconditioning. FINAL DISCHARGE DIAGNOSES: 1. Seizures. 2. Alcohol abuse. 3. Atrial fibrillation. 4. Weakness. HOSPITAL COURSE: Mr. Singh is a 63-year-old man who has been in the hospital for greater than 20 days. He was initially admitted to [facility] and was then transferred to [facility] and was admitted to the ICU for Cardiology consult. He was noted to be in atrial fibrillation with RVR and had multiple seizures. On admission had to be placed on a Cardizem drip. He was also having alcohol withdrawal with delirium tremens. He is now doing a lot better. Upon presentation, he also was noted to have pneumonia and was started on antibiotics and had electrolyte abnormalities that were replaced. He is now awake, alert, and attentive. Able to converse appropriately. He will continue on his seizure medication. We have counseled him about his abstaining from alcohol. He will continue his Dilantin 200 mg b.i.d. The patient is being discharged home today with hospice. He will need to follow up with Dr. Tang and Dr. Sweeney if needed and schedule an appointment as discussed with family. HOME MEDICATIONS: Multivitamin 1 tablets p.o. daily. Folic acid 1 tablet p.o. daily. Ibuprofen 800 mg p.o. t.i.d. as needed. Keppra 500 mg p.o. b.i.d. Metoprolol 25 mg p.o. b.i.d. Magnesium oxide 400 mg p.o. daily. Neutra-Phos 1 tablet p.o. 4 times a day. Prednisone 20 mg p.o. daily. Thiamin 100 mg p.o. daily. Zyvox 600 mg p.o. q.12 h. Cymbalta 60 mg p.o. at bedtime. Desyrel 150 mg p.o. at bedtime. Pamelor 25 mg p.o. at bedtime. Remeron 30 mg p.o. at bedtime. Oxycodone 1 to 2 tablets p.o. q.4 h. P.r.n. Xanax 1 mg p.o. q.4 h. P.r.n. Compazine 10 mg p.o. q.4 h. p.r.n. Morphine ER 60 mg p.o. q.12 h. Albuterol/Atrovent (DuoNeb) q.4 h. p.r.n. Flonase 2 sprays daily. Gabapentin 600 mg p.o. t.i.d. Klor-Con 10 mg p.o. daily. Lasix 20 mg p.o. daily. Lexapro 20 mg p.o. daily. Guaifenesin 600 mg p.o. b.i.d. Prilosec 20 mg p.o. b.i.d. Probiotic at 1.5 mg p.o. daily. DISCHARGE ACTIVITY: Per hospice care. DISCHARGE DIET: As tolerated. Dictated by KRZYSZTOF Hauser for Rolly Mai MD Addendum: Patient seen and examined by myself. Agree with KRZYSZTOF note. It reflects my assessment and plan. Patient is being discharged in stable condition. I was notified by nurse that according to Hospice company everything has been already arranged for him to go back home with hospice who will be taking care of him and will be providing his pain medications. cc: Rolly Mai MD [facility]ITAL[facility]
--- NOTE | 2018-10-06 06:58 | PROGRESS NOTE ---
DATE: 10/03/2018 SUBJECTIVE: Patient reports feeling fine. She is more alert and awake, eating PV diet and she is doing very well. OBJECTIVE: VITAL SIGNS: Temperature 97.7 degrees, heart rate 92, respiratory rate 18, blood pressure 117/77, O2 sat 100% on room air. GENERAL: This is a chronically ill-appearing 63-year-old male lying in bed in no acute distress. HEENT: Head is normocephalic, atraumatic. NECK: No JVD. No carotid bruits. No lymphadenopathy. CARDIOVASCULAR: S1, S2 heard. No murmurs, gallops, rubs. Regular rate and rhythm. RESPIRATORY: Decreased bilaterally globally but no wheezing, no crackles noted. Patient not using any accessory muscles for work of breathing. ABDOMEN: Soft, nontender to palpation. Bowel sounds present. No organomegaly. EXTREMITIES: Left lower extremity is still in an orthopedic cast. NEUROLOGICAL: Patient alert and oriented x3. Moves all 4 extremities. LABORATORY DATA: None. ASSESSMENT: 1. Convulsive seizures felt secondary to alcohol withdrawal, aware. No more seizures while he is in the hospital. 2. History of alcohol abuse with alcohol withdrawal symptoms on presentation, resolved. 3. Altered mental status, resolved. 4. Acute kidney injury, resolved. 5. Atrial fibrillation with rapid ventricular response. Patient is on Cardizem. 6. Left patellar fracture, aware. 7. Bilateral multifocal pneumonia with likely aspiration. We will continue with antibiotics. DISPOSITION: I think this patient is doing much better than what he was when I saw the patient at the time he was admitted to [facility] and then was transferred over here. I talked with the patient today and he is okay to going back home with hospice because he said he cannot afford all of his medications. If he continues to be stable, we will discharge him tomorrow. cc: Rolly Mai MD [facility]
== END 2018-10-04 13:54 | disposition hospice, home (50) | DRG 896 ==
LOC: EDBD 16:31 → EDUNIT# 16:31 → P.ED 16:31 → P.MEDSURG 20:44 → SUATTDRO 20:44 → P.ICU 09-13 08:38 → P.MEDSURG 09-18 11:55 → P.ICU 09-18 20:58 → ICU 09-21 19:29 → 3S 09-29 15:37 → 3N 10-03 02:09
PROVIDERS: ATTEND Internal Medicine
CPT/HCPCS: 36569; 70450; 71010; 71045; 71101; 71250; 72125; 73080; 73110; 73562; 74000; 74018; 76770; 80048; 80053; 80069; 80104; 80177; 80185; 80202; 80299; 80301; 80305; 80307; 80320; 81001; 82009; 82055; 82140; 82491; 82542; 82550; 82553; 82570; 82805; 82948; 83605; 83690; 83735; 83880; 84100; 84134; 84156; 84300; 84443; 84484; 85025; 85027; 85610; 86850; 86870; 86900; 86901; 86922; 87040; 87088; 93005; 93010; 93306; 93971; 94640; 94761; 94762; 94799; 95816; 96365; 96367; 96375; 97162; 97530; 99285; A9270; C9113; C9254; G0431; G0434; G0477; G0480; G6040; J1160; J1170; J1650; J1940; J1953; J1956; J2020; J2060; J2270; J2920; J3370; J3411; J3475; J3480; J3486; J7030; J7040; J7050; J7506; J7512; Q2009; S0028; S0073; S0164; XXXXX